=== PATIENT | female | born 1955 | race Caucasian/White ===

== ENCOUNTER 2023-10-28 08:56 | Inpatient (IN) | payer BC ==
[~2023-10-28] VITALS: Ht 167.6 cm; Wt 158.8 kg
[~2023-10-28 08:56] MED LIST: TPN #1 IV SCH
[2023-10-28 09:03] VITALS: O2SAT 96
[2023-10-28 09:30] LABS: BASOPHILS % (AUTO) 0.3 % (0.0-2.0); EOSINOPHILS # (AUTO) 0.1 K/uL (0.0-0.7); EOSINOPHILS % (AUTO) 0.7 % (0.0-6.0); HEMATOCRIT 28 % (33-45); LYMPHOCYTES # (AUTO) 1.4 K/uL (0.8-4.8); LYMPHOCYTES % (AUTO) 9.8 % (20.0-44.0); MEAN CORPUSCULAR HEMOGLOBIN 30 PG (26.0-33.0); MEAN CORPUSCULAR HGB CONC 32 g/dl (31.0-36.0); MEAN CORPUSCULAR VOLUME 91 fL (82-100); MONOCYTES # (AUTO) 1.5 K/uL (0.1-1.30); MONOCYTES % (AUTO) 10.5 % (2.0-12.0); NEUTROPHILS # (AUTO) 11.4 K/uL (1.8-8.9); NEUTROPHILS % (AUTO) 78.7 % (43.0-81.0); PLATELET COUNT (AUTO) 335 K/uL (150-450); RED BLOOD CELL COUNT(AUTO) 3.06 MIL/uL (4.0-5.2); RED CELL DISTRIBUTION WIDTH 16.9 % (11.5-15.0); WHITE BLOOD COUNT (AUTO) 14.4 K/uL (4.3-11.0)
[2023-10-28] MEDS ORDERED: OLAN10TA3 GT (09:36)
[2023-10-28] MEDS ORDERED: CLOP75TA15 GT (09:36)
[2023-10-28] MEDS ORDERED: ISOS10TA2 GT (09:36)
[2023-10-28] MEDS ORDERED: AMIO200T5 GT (09:36)
[2023-10-28] MEDS ORDERED: GLUC1KIT IM (09:36)
[2023-10-28] MEDS ORDERED: METO25TA6 GT (09:36)
[2023-10-28] MEDS ORDERED: GUAI400T61 GT (09:36)
[2023-10-28] MEDS ORDERED: NA P133E RC (09:36)
[2023-10-28] MEDS ORDERED: MAGN400O6 GT (09:36)
[2023-10-28] MEDS ORDERED: CHLO473M5 MM (09:36)
[2023-10-28] MEDS ORDERED: FURO-144 GT (09:36)
[2023-10-28] MEDS ORDERED: SENN-261 GT (09:36)
[2023-10-28] MEDS ORDERED: DOCU100T2 GT (09:36)
[2023-10-28] MEDS ORDERED: BISA10SU11 RC (09:36)
[2023-10-28] MEDS ORDERED: QUET50TA GT (09:36)
[2023-10-28] MEDS ORDERED: BETH5TAB2 GT (09:36)
[2023-10-28] MEDS ORDERED: TRAM50TA2 GT (09:36)
[2023-10-28] MEDS ORDERED: ALPR0.5T GT (09:36)
[2023-10-28] MEDS ORDERED: ACET-2605 GT (09:36)
[2023-10-28] MEDS ORDERED: MELA3TAB41 GT (09:36)
[2023-10-28] MEDS ORDERED: ONDA-97 GT (09:36)
[2023-10-28] MEDS ORDERED: ATOR20TA GT (09:36)
[2023-10-28] MEDS ORDERED: SERT50TA GT (09:36)
[2023-10-28] MEDS ORDERED: OLAN5TAB3 GT (09:36)
[2023-10-28] MEDS ORDERED: PHEN125O9 GT (09:36)
[2023-10-28] MEDS ORDERED: LORA2TAB95 GT (09:36)
[2023-10-28] MEDS ORDERED: IPRA4AER IH ×2 (09:36)
[2023-10-28] MEDS ORDERED: APIX5TAB GT (09:36)
[2023-10-28] MEDS ORDERED: VALP250S4 GT (09:36)
[2023-10-28] MEDS ORDERED: ACET-868 GT (09:36)
[2023-10-28] MEDS ORDERED: INSU100V7 SQ (09:36)
[2023-10-28] MEDS ORDERED: CALC0.253 GT (09:36)
[2023-10-28] MEDS ORDERED: POLY17PO4 GT (09:36)
[2023-10-28] MEDS ORDERED: *INS REG3 SQ (09:36)
[2023-10-28 09:41] LABS: CALCIUM, SERUM 12.6 mg/dL (8.5-10.1); CREATININE 1.4 mg/dL (0.6-1.3); POTASSIUM 4.3 mmol/L (3.5-5.1)
[2023-10-28 09:47] LABS: PARTIAL THROMBOPLASTIN TIME 25.9 SEC (24.3-34.3); PROTHROMBIN TIME 10.6 SECS (9.2-11.1)
[2023-10-28 09:48] LABS: ABG BASE EXCESS 9.7 mmol/L; ABG OXYGEN SATURATION 94.3 % (92.0-98.5); ABG PCO2 70.1 mmHg (35.0-45.0); ABG PH 7.345 (7.350-7.450); ABG PO2 75.3 mmHg (75.0-100.0); ABG TOTAL HEMOGLOBIN 10.4 G/dL (12.0-16.0); COHb 0.3 % (0.5-1.5); MetHb 0.4 % (0.0-1.5); O2Hb 93.6 % (94.0-97.0); SITE, ABG Right Radial; VENT MODE, BG CA 10L/98%
[2023-10-28] MEDS ORDERED: LORAZEPAM INJ 2 MG/ML VIAL ONE (09:54)
[2023-10-28] MEDS: LORAZEPAM INJ 2 MG/ML VIAL IV ONE (09:58)
[2023-10-28] MEDS: ENOXAPARIN SODIUM 40 MG/0.4 ML DISP.SYRIN SQ SCH (16:00)
[2023-10-28] MEDS ORDERED: IV NS 0.9% 1,000 ML IV PRN (16:00)
[2023-10-28] MEDS ORDERED: OLANZAPINE 10 MG TABLET GT PRN (16:00)
[2023-10-28] MEDS ORDERED: Z GUARD REMEDY 4 OZ OINT TP PRN (16:00)
[2023-10-28 16:07] VITALS: BP 127/80; TEMP 98.4; O2SAT 97
[2023-10-28] MEDS ORDERED: DEXTROSE 50%-WATER 50 ML DISP.SYRIN IV PRN (16:30)
[2023-10-28 16:31] LABS: BILIRUBIN,DIRECT 0.1 mg/dL (0.0-0.2); BILIRUBIN,TOTAL 0.2 mg/dL (0.2-1.0); PHENYTOIN (DILANTIN) 6.9 ug/ml (10.0-20.0); TOTAL PROTEIN, SERUM 7.1 g/dL (6.4-8.2)
[2023-10-28 16:54] LABS: IRON, SERUM 49 ug/dl (50-175); TOTAL IRON BINDING CAPACITY 249 ug/dl (250-450)
[2023-10-28 17:03] LABS: THYROID STIMULATING HORMONE 8.043 uIU/mL (0.358-3.74)
[2023-10-28 17:07] LABS: FERRITIN 73 ng/mL (8-388)
[2023-10-28] MEDS: VALPROIC ACID 250 MG/5 ML UDC GT SCH (17:53)
[2023-10-28] MEDS: PHENYTOIN SUSP UDC 100 MG/4 ML UDC GT SCH (17:53)
[2023-10-28] MEDS: QUETIAPINE FUMARATE 25 MG TABLET PO SCH (17:54)
[2023-10-28] MEDS: METOPROLOL TARTRATE 25 MG TABLET GT SCH (17:55)
[2023-10-28] MEDS: ISOSORBIDE DINITRATE (10MG) 10 MG TABLET GT SCH (17:55)
[2023-10-28] MEDS: OLANZAPINE 5 MG TABLET GT SCH (17:55)
[2023-10-28] MEDS: CHLORHEXIDINE GLUCONATE 15 ML UDC MM SCH (17:55)
[2023-10-28] MEDS: BLOOD SUGAR DIAGNOSTIC 1 EACH STRIP IN SCH (17:56)
[2023-10-28] MEDS: BETHANECHOL CHLORIDE (25 MG) 25 MG TABLET PO SCH (17:56)
[2023-10-28] MEDS ORDERED: BETHANECHOL CHLORIDE 50 MG TABLET PO SCH (18:00)
[2023-10-28] MEDS ORDERED: BETHANECHOL CHLORIDE 5 MG TABLET PO SCH (18:00)
[2023-10-28] MEDS: FUROSEMIDE 20 MG/2 ML VIAL IV ONE (18:37)
[2023-10-28] MEDS: IV LR 1000 ML 1,000 ML IV PRN (18:48)
[2023-10-28 20:00] VITALS: BP 109/68; TEMP 99.1; O2SAT 97
[2023-10-28] MEDS: ALBUTEROL FS 2.5 MG/3 ML VIAL.NEB NEB SCH (20:02)
[2023-10-28] MEDS: IPRATROPIUM NEB FS 0.5 MG/2.5 ML AMPUL.NEB NEB SCH (20:02)
[2023-10-28] MEDS: INSULIN GLARGINE, 100 UNIT/ML CARTRIDGE SQ SCH (22:00)
[2023-10-28] MEDS: ATORVASTATIN 10 MG TABLET GT SCH (22:09)
[2023-10-28] MEDS: CLOPIDOGREL BISULFATE 75 MG TABLET GT SCH (22:09)
[2023-10-28] MEDS: INSULIN REGULAR, HUMAN 100 UNIT/ML 3 ML VIAL SQ PRN (23:43)
[2023-10-29] VITALS (7 sets, daily range): BP systolic 91–100; BP diastolic 56–75; TEMP 98–99.3; O2SAT 96–100
[2023-10-29] MEDS: LORAZEPAM 1 MG TABLET GT PRN (05:40)
[2023-10-29 07:04] LABS: CREATININE 1.5 mg/dL (0.6-1.3); MAGNESIUM 2.3 mg/dL (1.8-2.4); PHOSPHORUS 2.1 mg/dL (2.5-4.9); POTASSIUM 4.2 mmol/L (3.5-5.1)
[2023-10-29 07:08] LABS: BASOPHILS # (AUTO) 0.1 K/uL (0.0-0.2); BASOPHILS % (AUTO) 0.3 % (0.0-2.0); EOSINOPHILS # (AUTO) 0.2 K/uL (0.0-0.7); EOSINOPHILS % (AUTO) 0.9 % (0.0-6.0); HEMATOCRIT 26 % (33-45); HEMOGLOBIN 8.3 g/dL (11.5-14.8); LYMPHOCYTES # (AUTO) 2.2 K/uL (0.8-4.8); LYMPHOCYTES % (AUTO) 11.6 % (20.0-44.0); MEAN CORPUSCULAR HEMOGLOBIN 30 PG (26.0-33.0); MEAN CORPUSCULAR HGB CONC 33 g/dl (31.0-36.0); MEAN CORPUSCULAR VOLUME 91 fL (82-100); MONOCYTES # (AUTO) 2.4 K/uL (0.1-1.30); MONOCYTES % (AUTO) 12.4 % (2.0-12.0); NEUTROPHILS # (AUTO) 14.4 K/uL (1.8-8.9); NEUTROPHILS % (AUTO) 74.8 % (43.0-81.0); PLATELET COUNT (AUTO) 322 K/uL (150-450); RED BLOOD CELL COUNT(AUTO) 2.81 MIL/uL (4.0-5.2); RED CELL DISTRIBUTION WIDTH 16.8 % (11.5-15.0); WHITE BLOOD COUNT (AUTO) 19.3 K/uL (4.3-11.0)
[2023-10-29] MEDS: FUROSEMIDE 40 MG TABLET GT SCH (09:07)
[2023-10-29] MEDS: SERTRALINE HCL 50 MG TABLET GT SCH (09:07)
[2023-10-29] MEDS: AMIODARONE HCL 200 MG TABLET GT SCH (09:08)
[2023-10-29 09:15] LABS: ANISOCYTOSIS 1+; BAND % (MANUAL) 6 % (0.0-5.0); EOSINOPHILS % (MANUAL) 1 % (0-4); HYPOCHROMASIA 1+; LYMPHOCYTES % (MANUAL) 14 % (16-48); METAMYELOCYTES % 1 % (0-0); MONOCYTES % (MANUAL) 10 % (0-11.0); NEUTROPHILS % (MANUAL) 68 (42-76); PLATELET ESTIMATE ADEQUATE
[2023-10-29] MEDS: NEUTRA PHOS 1 POWD.PACKET NG ONE (16:03)
[2023-10-30] VITALS (14 sets, daily range): BP systolic 96–115; BP diastolic 52–71; TEMP 97.7–98.4; O2SAT 92–100
[2023-10-30 06:46] LABS: BASOPHILS # (AUTO) 0.1 K/uL (0.0-0.2); BASOPHILS % (AUTO) 0.4 % (0.0-2.0); EOSINOPHILS # (AUTO) 0.1 K/uL (0.0-0.7); EOSINOPHILS % (AUTO) 0.9 % (0.0-6.0); HEMATOCRIT 24 % (33-45); HEMOGLOBIN 7.8 g/dL (11.5-14.8); LYMPHOCYTES # (AUTO) 1.8 K/uL (0.8-4.8); LYMPHOCYTES % (AUTO) 12.6 % (20.0-44.0); MEAN CORPUSCULAR HEMOGLOBIN 29 PG (26.0-33.0); MEAN CORPUSCULAR HGB CONC 32 g/dl (31.0-36.0); MEAN CORPUSCULAR VOLUME 90 fL (82-100); MONOCYTES # (AUTO) 1.8 K/uL (0.1-1.30); MONOCYTES % (AUTO) 12.1 % (2.0-12.0); NEUTROPHILS # (AUTO) 10.8 K/uL (1.8-8.9); PLATELET COUNT (AUTO) 274 K/uL (150-450); RED BLOOD CELL COUNT(AUTO) 2.66 MIL/uL (4.0-5.2); RED CELL DISTRIBUTION WIDTH 16.5 % (11.5-15.0); WHITE BLOOD COUNT (AUTO) 14.6 K/uL (4.3-11.0)
[2023-10-30 07:29] LABS: CALCIUM, SERUM 10.7 mg/dL (8.5-10.1); CREATININE 1.3 mg/dL (0.6-1.3); MAGNESIUM 1.9 mg/dL (1.8-2.4); PHOSPHORUS 2.3 mg/dL (2.5-4.9); POTASSIUM 3.6 mmol/L (3.5-5.1)
[2023-10-30] MEDS: APIXABAN 5 MG TABLET GT SCH (08:27)
[2023-10-30 12:50] LABS: ABG BASE EXCESS 11.9 mmol/L; ABG PCO2 49.4 mmHg (35.0-45.0); ABG PH 7.488 (7.350-7.450); ABG PO2 54.3 mmHg (75.0-100.0); ABG TOTAL HEMOGLOBIN 8.9 G/dL (12.0-16.0); AaDO2 174.1 mmHg; COHb 0.3 % (0.5-1.5); MetHb 0.2 % (0.0-1.5); O2Hb 88.6 % (94.0-97.0); SITE, ABG Right Radial; VENT MODE, BG cool aerosol40%
[2023-10-30] MEDS: LEVOTHYROXINE SODIUM 125 MCG TABLET GT SCH (12:55)
[2023-10-30] MEDS: GLUCERNA 1.2 1,000 ML BOTTLE NG PRN (13:00)
[2023-10-30] MEDS: NEUTRA PHOS 1 POWD.PACKET NG ONE (17:09)
[2023-10-30] MEDS: ALBUTEROL HALF STRENGTH 1.25 MG/3 ML VIAL.NEB NEB SCH (20:23)
[2023-10-30] MEDS: IPRATROPIUM NEB FS 0.5 MG/2.5 ML AMPUL.NEB NEB SCH (20:23)
[2023-10-31] VITALS (17 sets, daily range): BP systolic 97–136; BP diastolic 48–72; TEMP 97.6–98.5; O2SAT 92–100
[2023-10-31 06:35] LABS: BASOPHILS % (AUTO) 0.2 % (0.0-2.0); EOSINOPHILS # (AUTO) 0.3 K/uL (0.0-0.7); EOSINOPHILS % (AUTO) 2.8 % (0.0-6.0); HEMATOCRIT 25 % (33-45); HEMOGLOBIN 8.2 g/dL (11.5-14.8); LYMPHOCYTES # (AUTO) 1.5 K/uL (0.8-4.8); LYMPHOCYTES % (AUTO) 12.9 % (20.0-44.0); MEAN CORPUSCULAR HEMOGLOBIN 29 PG (26.0-33.0); MEAN CORPUSCULAR HGB CONC 32 g/dl (31.0-36.0); MEAN CORPUSCULAR VOLUME 91 fL (82-100); MONOCYTES # (AUTO) 1.4 K/uL (0.1-1.30); MONOCYTES % (AUTO) 12.1 % (2.0-12.0); NEUTROPHILS # (AUTO) 8.5 K/uL (1.8-8.9); PLATELET COUNT (AUTO) 286 K/uL (150-450); RED CELL DISTRIBUTION WIDTH 16.7 % (11.5-15.0); WHITE BLOOD COUNT (AUTO) 11.8 K/uL (4.3-11.0)
[2023-10-31 06:38] LABS: CALCIUM, SERUM 10.5 mg/dL (8.5-10.1); CREATININE 1.3 mg/dL (0.6-1.3); MAGNESIUM 1.9 mg/dL (1.8-2.4); PHOSPHORUS 3.6 mg/dL (2.5-4.9); POTASSIUM 3.7 mmol/L (3.5-5.1)
[2023-10-31 08:19] LABS: ABG BASE EXCESS 10.3 mmol/L; ABG PH 7.452 (7.350-7.450); ABG PO2 73.3 mmHg (75.0-100.0); ABG TOTAL HEMOGLOBIN 9.2 G/dL (12.0-16.0); AaDO2 152.1 mmHg; MetHb 0.3 % (0.0-1.5); O2Hb 93.7 % (94.0-97.0); SITE, ABG Right Radial; VENT MODE, BG 40% C/A
[2023-11-01] VITALS (17 sets, daily range): BP systolic 106–120; BP diastolic 54–90; TEMP 98.2–98.9; O2SAT 93–98
[2023-11-01 06:36] LABS: BASOPHILS % (AUTO) 0.2 % (0.0-2.0); EOSINOPHILS # (AUTO) 0.4 K/uL (0.0-0.7); EOSINOPHILS % (AUTO) 3.1 % (0.0-6.0); HEMATOCRIT 24 % (33-45); HEMOGLOBIN 7.6 g/dL (11.5-14.8); LYMPHOCYTES # (AUTO) 1.5 K/uL (0.8-4.8); LYMPHOCYTES % (AUTO) 12.4 % (20.0-44.0); MEAN CORPUSCULAR HEMOGLOBIN 29 PG (26.0-33.0); MEAN CORPUSCULAR HGB CONC 32 g/dl (31.0-36.0); MEAN CORPUSCULAR VOLUME 91 fL (82-100); MONOCYTES # (AUTO) 1.5 K/uL (0.1-1.30); NEUTROPHILS # (AUTO) 8.8 K/uL (1.8-8.9); NEUTROPHILS % (AUTO) 72.3 % (43.0-81.0); PLATELET COUNT (AUTO) 254 K/uL (150-450); RED BLOOD CELL COUNT(AUTO) 2.62 MIL/uL (4.0-5.2); RED CELL DISTRIBUTION WIDTH 16.6 % (11.5-15.0); WHITE BLOOD COUNT (AUTO) 12.2 K/uL (4.3-11.0)
[2023-11-01 06:55] LABS: CREATININE 1.1 mg/dL (0.6-1.3); MAGNESIUM 2.1 mg/dL (1.8-2.4); PHOSPHORUS 3.3 mg/dL (2.5-4.9); POTASSIUM 3.6 mmol/L (3.5-5.1)
[2023-11-01] MEDS ORDERED: LEVO125T GT (10:47)
[2023-11-02] VITALS (14 sets, daily range): BP systolic 91–121; BP diastolic 51–72; TEMP 97.6–99.2; O2SAT 95–98
[2023-11-03] VITALS (12 sets, daily range): BP systolic 101–128; BP diastolic 62–72; TEMP 98–98.8; O2SAT 94–98
[2023-11-03 11:15] LABS: BASOPHILS % (AUTO) 0.3 % (0.0-2.0); EOSINOPHILS # (AUTO) 0.5 K/uL (0.0-0.7); EOSINOPHILS % (AUTO) 3.8 % (0.0-6.0); HEMATOCRIT 24 % (33-45); HEMOGLOBIN 7.6 g/dL (11.5-14.8); LYMPHOCYTES # (AUTO) 1.7 K/uL (0.8-4.8); LYMPHOCYTES % (AUTO) 12.4 % (20.0-44.0); MEAN CORPUSCULAR HEMOGLOBIN 30 PG (26.0-33.0); MEAN CORPUSCULAR HGB CONC 32 g/dl (31.0-36.0); MEAN CORPUSCULAR VOLUME 93 fL (82-100); MONOCYTES # (AUTO) 1.6 K/uL (0.1-1.30); MONOCYTES % (AUTO) 11.9 % (2.0-12.0); NEUTROPHILS # (AUTO) 9.6 K/uL (1.8-8.9); NEUTROPHILS % (AUTO) 71.6 % (43.0-81.0); PLATELET COUNT (AUTO) 227 K/uL (150-450); RED BLOOD CELL COUNT(AUTO) 2.57 MIL/uL (4.0-5.2); WHITE BLOOD COUNT (AUTO) 13.4 K/uL (4.3-11.0)
[2023-11-04] VITALS (14 sets, daily range): BP systolic 98–153; BP diastolic 52–77; TEMP 97.9–98.8; O2SAT 92–98
[2023-11-04] MEDS: TRAMADOL HCL 50 MG TABLET GT PRN (04:27)
[2023-11-04 09:39] LABS: BASOPHILS # (AUTO) 0.1 K/uL (0.0-0.2); BASOPHILS % (AUTO) 0.5 % (0.0-2.0); EOSINOPHILS # (AUTO) 0.6 K/uL (0.0-0.7); EOSINOPHILS % (AUTO) 3.8 % (0.0-6.0); HEMATOCRIT 25 % (33-45); HEMOGLOBIN 7.9 g/dL (11.5-14.8); LYMPHOCYTES # (AUTO) 2.1 K/uL (0.8-4.8); LYMPHOCYTES % (AUTO) 12.8 % (20.0-44.0); MEAN CORPUSCULAR HEMOGLOBIN 30 PG (26.0-33.0); MEAN CORPUSCULAR HGB CONC 31 g/dl (31.0-36.0); MEAN CORPUSCULAR VOLUME 94 fL (82-100); MONOCYTES # (AUTO) 2.1 K/uL (0.1-1.30); MONOCYTES % (AUTO) 13.1 % (2.0-12.0); NEUTROPHILS # (AUTO) 11.3 K/uL (1.8-8.9); NEUTROPHILS % (AUTO) 69.8 % (43.0-81.0); PLATELET COUNT (AUTO) 259 K/uL (150-450); RED BLOOD CELL COUNT(AUTO) 2.67 MIL/uL (4.0-5.2); RED CELL DISTRIBUTION WIDTH 16.6 % (11.5-15.0); WHITE BLOOD COUNT (AUTO) 16.2 K/uL (4.3-11.0)
[2023-11-04 10:08] LABS: ALBUMIN 1.7 g/dL (3.4-5.0); BILIRUBIN,TOTAL 0.2 mg/dL (0.2-1.0); CALCIUM, SERUM 9.8 mg/dL (8.5-10.1); CREATININE 1.2 mg/dL (0.6-1.3); MAGNESIUM 2.5 mg/dL (1.8-2.4); PHOSPHORUS 4.9 mg/dL (2.5-4.9); POTASSIUM 5.2 mmol/L (3.5-5.1); TOTAL PROTEIN, SERUM 6.7 g/dL (6.4-8.2)
[2023-11-05] VITALS (16 sets, daily range): BP systolic 83–110; BP diastolic 50–66; TEMP 97.9–99.1; O2SAT 92–100
[2023-11-05 06:58] LABS: BASOPHILS # (AUTO) 0.1 K/uL (0.0-0.2); BASOPHILS % (AUTO) 0.6 % (0.0-2.0); EOSINOPHILS # (AUTO) 0.5 K/uL (0.0-0.7); EOSINOPHILS % (AUTO) 2.8 % (0.0-6.0); HEMATOCRIT 25 % (33-45); HEMOGLOBIN 7.7 g/dL (11.5-14.8); LYMPHOCYTES # (AUTO) 1.8 K/uL (0.8-4.8); LYMPHOCYTES % (AUTO) 10.8 % (20.0-44.0); MEAN CORPUSCULAR HEMOGLOBIN 29 PG (26.0-33.0); MEAN CORPUSCULAR HGB CONC 31 g/dl (31.0-36.0); MEAN CORPUSCULAR VOLUME 93 fL (82-100); MONOCYTES # (AUTO) 1.9 K/uL (0.1-1.30); MONOCYTES % (AUTO) 11.1 % (2.0-12.0); NEUTROPHILS # (AUTO) 12.4 K/uL (1.8-8.9); NEUTROPHILS % (AUTO) 74.7 % (43.0-81.0); PLATELET COUNT (AUTO) 230 K/uL (150-450); RED BLOOD CELL COUNT(AUTO) 2.68 MIL/uL (4.0-5.2); WHITE BLOOD COUNT (AUTO) 16.7 K/uL (4.3-11.0)
[2023-11-05 07:24] LABS: ALBUMIN 1.6 g/dL (3.4-5.0); BILIRUBIN,TOTAL 0.2 mg/dL (0.2-1.0); CALCIUM, SERUM 9.6 mg/dL (8.5-10.1); CREATININE 1.3 mg/dL (0.6-1.3); MAGNESIUM 2.7 mg/dL (1.8-2.4); PHOSPHORUS 4.7 mg/dL (2.5-4.9); POTASSIUM 5.2 mmol/L (3.5-5.1); TOTAL PROTEIN, SERUM 6.4 g/dL (6.4-8.2)
[2023-11-05] MEDS: IV NS 0.9% 500 ML IV ONE ×2 (20:46→23:35)
[2023-11-06] VITALS (17 sets, daily range): BP systolic 96–142; BP diastolic 50–92; TEMP 97.9–99; O2SAT 91–99
[2023-11-06 09:23] LABS: BASOPHILS # (AUTO) 0.1 K/uL (0.0-0.2); BASOPHILS % (AUTO) 0.3 % (0.0-2.0); EOSINOPHILS # (AUTO) 0.4 K/uL (0.0-0.7); EOSINOPHILS % (AUTO) 2.2 % (0.0-6.0); HEMATOCRIT 25 % (33-45); LYMPHOCYTES # (AUTO) 1.8 K/uL (0.8-4.8); LYMPHOCYTES % (AUTO) 10.2 % (20.0-44.0); MEAN CORPUSCULAR HEMOGLOBIN 30 PG (26.0-33.0); MEAN CORPUSCULAR HGB CONC 32 g/dl (31.0-36.0); MEAN CORPUSCULAR VOLUME 93 fL (82-100); MONOCYTES # (AUTO) 1.6 K/uL (0.1-1.30); MONOCYTES % (AUTO) 9.5 % (2.0-12.0); NEUTROPHILS # (AUTO) 13.4 K/uL (1.8-8.9); NEUTROPHILS % (AUTO) 77.8 % (43.0-81.0); PLATELET COUNT (AUTO) 245 K/uL (150-450); RED BLOOD CELL COUNT(AUTO) 2.67 MIL/uL (4.0-5.2); RED CELL DISTRIBUTION WIDTH 16.7 % (11.5-15.0); WHITE BLOOD COUNT (AUTO) 17.3 K/uL (4.3-11.0)
[2023-11-06 09:27] LABS: ALBUMIN 1.6 g/dL (3.4-5.0); BILIRUBIN,TOTAL 0.2 mg/dL (0.2-1.0); CALCIUM, SERUM 9.7 mg/dL (8.5-10.1); CREATININE 1.2 mg/dL (0.6-1.3); MAGNESIUM 2.6 mg/dL (1.8-2.4); PHOSPHORUS 4.2 mg/dL (2.5-4.9); POTASSIUM 4.9 mmol/L (3.5-5.1); TOTAL PROTEIN, SERUM 6.8 g/dL (6.4-8.2)
[2023-11-06 12:05] LABS: BAND % (MANUAL) 1 % (0.0-5.0); HYPOCHROMASIA 1+; LYMPHOCYTES % (MANUAL) 12 % (16-48); MONOCYTES % (MANUAL) 7 % (0-11.0); NEUTROPHILS % (MANUAL) 80 (42-76); PLATELET ESTIMATE ADEQUATE
[2023-11-06 12:06] LABS: ANISOCYTOSIS 1+
[2023-11-07] VITALS (16 sets, daily range): BP systolic 93–104; BP diastolic 57–65; TEMP 98.1–98.7; O2SAT 94–100
[2023-11-07 06:39] LABS: BASOPHILS # (AUTO) 0.1 K/uL (0.0-0.2); BASOPHILS % (AUTO) 0.5 % (0.0-2.0); EOSINOPHILS # (AUTO) 0.4 K/uL (0.0-0.7); EOSINOPHILS % (AUTO) 2.4 % (0.0-6.0); HEMATOCRIT 26 % (33-45); HEMOGLOBIN 8.2 g/dL (11.5-14.8); LYMPHOCYTES # (AUTO) 2.2 K/uL (0.8-4.8); MEAN CORPUSCULAR HEMOGLOBIN 30 PG (26.0-33.0); MEAN CORPUSCULAR HGB CONC 32 g/dl (31.0-36.0); MEAN CORPUSCULAR VOLUME 94 fL (82-100); MONOCYTES # (AUTO) 1.6 K/uL (0.1-1.30); MONOCYTES % (AUTO) 10.2 % (2.0-12.0); NEUTROPHILS # (AUTO) 11.2 K/uL (1.8-8.9); NEUTROPHILS % (AUTO) 72.9 % (43.0-81.0); PLATELET COUNT (AUTO) 253 K/uL (150-450); RED BLOOD CELL COUNT(AUTO) 2.75 MIL/uL (4.0-5.2); RED CELL DISTRIBUTION WIDTH 16.8 % (11.5-15.0); WHITE BLOOD COUNT (AUTO) 15.4 K/uL (4.3-11.0)
[2023-11-07 06:58] LABS: ALBUMIN 1.7 g/dL (3.4-5.0); BILIRUBIN,TOTAL 0.2 mg/dL (0.2-1.0); CALCIUM, SERUM 9.8 mg/dL (8.5-10.1); CREATININE 1.1 mg/dL (0.6-1.3); MAGNESIUM 2.5 mg/dL (1.8-2.4); PHOSPHORUS 4.1 mg/dL (2.5-4.9); POTASSIUM 5.3 mmol/L (3.5-5.1)
[2023-11-07] MEDS: ALPRAZOLAM 0.5 MG TABLET GT PRN (10:12)
[2023-11-08] VITALS (16 sets, daily range): BP systolic 88–130; BP diastolic 50–83; TEMP 97.5–99.3; O2SAT 95–99
[2023-11-08] MEDS: ACETAMINOPHEN 325 MG TABLET MC PRN (09:43)
[2023-11-08 10:46] LABS: BASOPHILS % (AUTO) 0.3 % (0.0-2.0); EOSINOPHILS # (AUTO) 0.3 K/uL (0.0-0.7); EOSINOPHILS % (AUTO) 1.9 % (0.0-6.0); HEMATOCRIT 26 % (33-45); HEMOGLOBIN 7.9 g/dL (11.5-14.8); LYMPHOCYTES # (AUTO) 1.7 K/uL (0.8-4.8); LYMPHOCYTES % (AUTO) 12.1 % (20.0-44.0); MEAN CORPUSCULAR HEMOGLOBIN 29 PG (26.0-33.0); MEAN CORPUSCULAR HGB CONC 31 g/dl (31.0-36.0); MEAN CORPUSCULAR VOLUME 94 fL (82-100); MONOCYTES # (AUTO) 1.5 K/uL (0.1-1.30); MONOCYTES % (AUTO) 10.9 % (2.0-12.0); NEUTROPHILS # (AUTO) 10.4 K/uL (1.8-8.9); NEUTROPHILS % (AUTO) 74.8 % (43.0-81.0); PLATELET COUNT (AUTO) 239 K/uL (150-450); RED BLOOD CELL COUNT(AUTO) 2.73 MIL/uL (4.0-5.2); RED CELL DISTRIBUTION WIDTH 17.4 % (11.5-15.0)
[2023-11-08 10:48] LABS: CALCIUM, SERUM 9.9 mg/dL (8.5-10.1); POTASSIUM 5.4 mmol/L (3.5-5.1)
[2023-11-08 10:54] LABS: ALBUMIN 1.6 g/dL (3.4-5.0); BILIRUBIN,TOTAL 0.2 mg/dL (0.2-1.0); TOTAL PROTEIN, SERUM 6.7 g/dL (6.4-8.2)
[2023-11-08] MEDS: SODIUM POLYSTYRENE SULF. PWD 15 GM UDC PEG ONE (13:09)
[2023-11-08] MEDS ORDERED: NEPRO 1,000 ML BOTTLE GT PRN (13:30)
[2023-11-08] MEDS: NEPRO 1,000 ML BOTTLE GT PRN (19:03)
[2023-11-09] VITALS (16 sets, daily range): BP systolic 101–150; BP diastolic 48–75; TEMP 96.1–99.2; O2SAT 91–99
[2023-11-09 07:05] LABS: BASOPHILS % (AUTO) 0.3 % (0.0-2.0); EOSINOPHILS # (AUTO) 0.3 K/uL (0.0-0.7); EOSINOPHILS % (AUTO) 1.9 % (0.0-6.0); HEMATOCRIT 26 % (33-45); LYMPHOCYTES # (AUTO) 1.7 K/uL (0.8-4.8); LYMPHOCYTES % (AUTO) 12.6 % (20.0-44.0); MEAN CORPUSCULAR HEMOGLOBIN 30 PG (26.0-33.0); MEAN CORPUSCULAR HGB CONC 31 g/dl (31.0-36.0); MEAN CORPUSCULAR VOLUME 95 fL (82-100); MONOCYTES # (AUTO) 1.3 K/uL (0.1-1.30); MONOCYTES % (AUTO) 9.8 % (2.0-12.0); NEUTROPHILS # (AUTO) 10.1 K/uL (1.8-8.9); NEUTROPHILS % (AUTO) 75.4 % (43.0-81.0); PLATELET COUNT (AUTO) 242 K/uL (150-450); RED BLOOD CELL COUNT(AUTO) 2.68 MIL/uL (4.0-5.2); RED CELL DISTRIBUTION WIDTH 17.9 % (11.5-15.0); WHITE BLOOD COUNT (AUTO) 13.5 K/uL (4.3-11.0)
[2023-11-09 07:15] LABS: CALCIUM, SERUM 9.8 mg/dL (8.5-10.1); CREATININE 1.2 mg/dL (0.6-1.3)
[2023-11-10] VITALS (17 sets, daily range): BP systolic 93–150; BP diastolic 61–86; TEMP 98.1–99.3; O2SAT 91–98
[2023-11-11] VITALS (17 sets, daily range): BP systolic 103–135; BP diastolic 51–75; TEMP 97.7–98.8; O2SAT 92–99
[2023-11-11 07:31] LABS: BASOPHILS # (AUTO) 0.1 K/uL (0.0-0.2); BASOPHILS % (AUTO) 0.4 % (0.0-2.0); EOSINOPHILS # (AUTO) 0.3 K/uL (0.0-0.7); EOSINOPHILS % (AUTO) 2.8 % (0.0-6.0); HEMATOCRIT 26 % (33-45); HEMOGLOBIN 8.2 g/dL (11.5-14.8); LYMPHOCYTES # (AUTO) 1.6 K/uL (0.8-4.8); LYMPHOCYTES % (AUTO) 12.6 % (20.0-44.0); MEAN CORPUSCULAR HEMOGLOBIN 30 PG (26.0-33.0); MEAN CORPUSCULAR HGB CONC 32 g/dl (31.0-36.0); MEAN CORPUSCULAR VOLUME 95 fL (82-100); MONOCYTES # (AUTO) 1.1 K/uL (0.1-1.30); NEUTROPHILS # (AUTO) 9.4 K/uL (1.8-8.9); NEUTROPHILS % (AUTO) 75.2 % (43.0-81.0); PLATELET COUNT (AUTO) 212 K/uL (150-450); RED BLOOD CELL COUNT(AUTO) 2.76 MIL/uL (4.0-5.2); RED CELL DISTRIBUTION WIDTH 17.5 % (11.5-15.0); WHITE BLOOD COUNT (AUTO) 12.5 K/uL (4.3-11.0)
[2023-11-11 07:45] LABS: CALCIUM, SERUM 10.6 mg/dL (8.5-10.1); CREATININE 1.1 mg/dL (0.6-1.3); POTASSIUM 4.5 mmol/L (3.5-5.1)
[2023-11-11 14:53] LABS: ABG BASE EXCESS 14.9 mmol/L; ABG OXYGEN SATURATION 89.9 % (92.0-98.5); ABG PCO2 63.9 mmHg (35.0-45.0); ABG PH 7.428 (7.350-7.450); ABG PO2 59.4 mmHg (75.0-100.0); ABG TOTAL HEMOGLOBIN 9.1 G/dL (12.0-16.0); AaDO2 152.3 mmHg; COHb 0.3 % (0.5-1.5); MetHb 0.4 % (0.0-1.5); O2Hb 89.3 % (94.0-97.0); SITE, ABG Right Radial; VENT MODE, BG CA 40%
[2023-11-12] VITALS (14 sets, daily range): BP systolic 104–126; BP diastolic 50–70; TEMP 97.9–99.1; O2SAT 95–99
[2023-11-12 06:18] LABS: ABG BASE EXCESS 13.1 mmol/L; ABG OXYGEN SATURATION 93.4 % (92.0-98.5); ABG PCO2 61.1 mmHg (35.0-45.0); ABG PH 7.426 (7.350-7.450); ABG PO2 70.1 mmHg (75.0-100.0); ABG TOTAL HEMOGLOBIN 8.9 G/dL (12.0-16.0); AaDO2 144.8 mmHg; COHb 0.5 % (0.5-1.5); MetHb 0.1 % (0.0-1.5); O2Hb 92.8 % (94.0-97.0); SITE, ABG Right Radial; VENT MODE, BG COOL AEROSOL 40%
[2023-11-12 07:02] LABS: BASOPHILS % (AUTO) 0.3 % (0.0-2.0); EOSINOPHILS # (AUTO) 0.3 K/uL (0.0-0.7); EOSINOPHILS % (AUTO) 2.7 % (0.0-6.0); HEMATOCRIT 26 % (33-45); HEMOGLOBIN 8.3 g/dL (11.5-14.8); LYMPHOCYTES # (AUTO) 1.4 K/uL (0.8-4.8); LYMPHOCYTES % (AUTO) 13.2 % (20.0-44.0); MEAN CORPUSCULAR HEMOGLOBIN 30 PG (26.0-33.0); MEAN CORPUSCULAR HGB CONC 32 g/dl (31.0-36.0); MEAN CORPUSCULAR VOLUME 94 fL (82-100); MONOCYTES # (AUTO) 0.9 K/uL (0.1-1.30); MONOCYTES % (AUTO) 8.7 % (2.0-12.0); NEUTROPHILS # (AUTO) 7.8 K/uL (1.8-8.9); NEUTROPHILS % (AUTO) 75.1 % (43.0-81.0); PLATELET COUNT (AUTO) 213 K/uL (150-450); RED BLOOD CELL COUNT(AUTO) 2.75 MIL/uL (4.0-5.2); RED CELL DISTRIBUTION WIDTH 17.3 % (11.5-15.0); WHITE BLOOD COUNT (AUTO) 10.3 K/uL (4.3-11.0)
[2023-11-12 07:12] LABS: CALCIUM, SERUM 10.4 mg/dL (8.5-10.1); CREATININE 1.2 mg/dL (0.6-1.3)
[2023-11-12] MEDS: CEFEPIME 2 GM in IV D5W 100 ML IV SCH (13:09)
[2023-11-12] MEDS: NEPRO 1,000 ML BOTTLE GT PRN (21:59)
[2023-11-13] VITALS (13 sets, daily range): BP systolic 113–132; BP diastolic 60–69; TEMP 97.9–99.3; O2SAT 94–99
[2023-11-14] VITALS (17 sets, daily range): BP systolic 108–143; BP diastolic 50–71; TEMP 98–99; O2SAT 94–99
[2023-11-15] VITALS (16 sets, daily range): BP systolic 115–138; BP diastolic 58–71; TEMP 97.5–98.8; O2SAT 93–100
[2023-11-15 06:21] LABS: BASOPHILS % (AUTO) 0.3 % (0.0-2.0); EOSINOPHILS # (AUTO) 0.3 K/uL (0.0-0.7); EOSINOPHILS % (AUTO) 2.5 % (0.0-6.0); HEMATOCRIT 24 % (33-45); HEMOGLOBIN 7.7 g/dL (11.5-14.8); LYMPHOCYTES # (AUTO) 1.4 K/uL (0.8-4.8); LYMPHOCYTES % (AUTO) 13.9 % (20.0-44.0); MEAN CORPUSCULAR HEMOGLOBIN 30 PG (26.0-33.0); MEAN CORPUSCULAR HGB CONC 33 g/dl (31.0-36.0); MEAN CORPUSCULAR VOLUME 93 fL (82-100); MONOCYTES % (AUTO) 9.4 % (2.0-12.0); NEUTROPHILS # (AUTO) 7.6 K/uL (1.8-8.9); NEUTROPHILS % (AUTO) 73.9 % (43.0-81.0); PLATELET COUNT (AUTO) 200 K/uL (150-450); RED BLOOD CELL COUNT(AUTO) 2.55 MIL/uL (4.0-5.2); RED CELL DISTRIBUTION WIDTH 17.4 % (11.5-15.0); WHITE BLOOD COUNT (AUTO) 10.2 K/uL (4.3-11.0)
[2023-11-15 06:55] LABS: CREATININE 1.4 mg/dL (0.6-1.3); POTASSIUM 4.2 mmol/L (3.5-5.1)
[2023-11-15 07:41] LABS: CALCIUM, SERUM 13.1 mg/dL (8.5-10.1)
[2023-11-15 09:43] LABS: ALBUMIN 1.6 g/dL (3.4-5.0); BILIRUBIN,DIRECT 0.1 mg/dL (0.0-0.2); BILIRUBIN,TOTAL 0.2 mg/dL (0.2-1.0); MAGNESIUM 1.7 mg/dL (1.8-2.4); PHOSPHORUS 3.7 mg/dL (2.5-4.9); TOTAL PROTEIN, SERUM 6.8 g/dL (6.4-8.2)
[2023-11-15] MEDS: IV NS 0.9% 1,000 ML IV PRN (14:40)
[2023-11-16] VITALS (16 sets, daily range): BP systolic 110–135; BP diastolic 53–73; TEMP 97.6–98.4; O2SAT 94–99
[2023-11-16 06:39] LABS: BASOPHILS # (AUTO) 0.1 K/uL (0.0-0.2); BASOPHILS % (AUTO) 0.6 % (0.0-2.0); EOSINOPHILS # (AUTO) 0.4 K/uL (0.0-0.7); EOSINOPHILS % (AUTO) 4.2 % (0.0-6.0); HEMATOCRIT 23 % (33-45); HEMOGLOBIN 7.6 g/dL (11.5-14.8); LYMPHOCYTES # (AUTO) 1.2 K/uL (0.8-4.8); LYMPHOCYTES % (AUTO) 12.6 % (20.0-44.0); MEAN CORPUSCULAR HEMOGLOBIN 30 PG (26.0-33.0); MEAN CORPUSCULAR HGB CONC 33 g/dl (31.0-36.0); MEAN CORPUSCULAR VOLUME 93 fL (82-100); MONOCYTES # (AUTO) 0.9 K/uL (0.1-1.30); MONOCYTES % (AUTO) 9.3 % (2.0-12.0); NEUTROPHILS # (AUTO) 7.1 K/uL (1.8-8.9); NEUTROPHILS % (AUTO) 73.3 % (43.0-81.0); PLATELET COUNT (AUTO) 198 K/uL (150-450); RED BLOOD CELL COUNT(AUTO) 2.51 MIL/uL (4.0-5.2); WHITE BLOOD COUNT (AUTO) 9.7 K/uL (4.3-11.0)
[2023-11-16 07:30] LABS: CREATININE 1.5 mg/dL (0.6-1.3); POTASSIUM 3.9 mmol/L (3.5-5.1)
[2023-11-16 07:57] LABS: CALCIUM, SERUM 13.4 mg/dL (8.5-10.1)
[2023-11-17] VITALS (17 sets, daily range): BP systolic 103–119; BP diastolic 50–69; TEMP 97.5–98.2; O2SAT 95–100
[2023-11-17] MEDS: PAMIDRONATE 90 MG in IV NS 0.9% 500 ML IV ONE (07:42)
[2023-11-18] VITALS (21 sets, daily range): BP systolic 87–116; BP diastolic 53–102; TEMP 97.8–100; O2SAT 94–99
[2023-11-18 07:27] LABS: BASOPHILS # (AUTO) 0.1 K/uL (0.0-0.2); BASOPHILS % (AUTO) 0.4 % (0.0-2.0); EOSINOPHILS % (AUTO) 0.1 % (0.0-6.0); HEMATOCRIT 21 % (33-45); LYMPHOCYTES # (AUTO) 0.2 K/uL (0.8-4.8); LYMPHOCYTES % (AUTO) 1.3 % (20.0-44.0); MEAN CORPUSCULAR HEMOGLOBIN 30 PG (26.0-33.0); MEAN CORPUSCULAR HGB CONC 32 g/dl (31.0-36.0); MEAN CORPUSCULAR VOLUME 93 fL (82-100); MONOCYTES # (AUTO) 0.7 K/uL (0.1-1.30); MONOCYTES % (AUTO) 4.7 % (2.0-12.0); NEUTROPHILS # (AUTO) 13.1 K/uL (1.8-8.9); NEUTROPHILS % (AUTO) 93.5 % (43.0-81.0); PLATELET COUNT (AUTO) 211 K/uL (150-450); RED BLOOD CELL COUNT(AUTO) 2.22 MIL/uL (4.0-5.2); RED CELL DISTRIBUTION WIDTH 17.3 % (11.5-15.0)
[2023-11-18 07:29] LABS: HEMOGLOBIN 6.6 g/dL (11.5-14.8)
[2023-11-18 07:47] LABS: ALBUMIN 1.5 g/dL (3.4-5.0); BILIRUBIN,TOTAL 0.2 mg/dL (0.2-1.0); CALCIUM, SERUM 12.9 mg/dL (8.5-10.1); CREATININE 1.4 mg/dL (0.6-1.3); MAGNESIUM 1.5 mg/dL (1.8-2.4); PHOSPHORUS 2.4 mg/dL (2.5-4.9); POTASSIUM 3.3 mmol/L (3.5-5.1); TOTAL PROTEIN, SERUM 6.6 g/dL (6.4-8.2)
[2023-11-18 10:14] LABS: ANISOCYTOSIS 1+; BAND % (MANUAL) 7 % (0.0-5.0); BASOPHILS % (MANUAL) 0 % (0.0-2.0); EOSINOPHILS % (MANUAL) 0 % (0-4); HYPOCHROMASIA 1+; LYMPHOCYTES % (MANUAL) 3 % (16-48); MONOCYTES % (MANUAL) 6 % (0-11.0); NEUTROPHILS % (MANUAL) 84 (42-76); PLATELET ESTIMATE ADEQUATE; STOMATOCYTES 1+
[2023-11-18] MEDS: MAGNESIUM OXIDE 400 MG TABLET NG ONE (10:35)
[2023-11-18] MEDS: POTASSIUM CHLORIDE 20 MEQ POWDER PACKET NG SCH (10:37)
[2023-11-18] MEDS: NEUTRA PHOS 1 POWD.PACKET NG ONE (17:35)
[2023-11-18] MEDS: SENNOSIDES 8.6 MG TABLET PO SCH (22:09)
[2023-11-18] MEDS: DOCUSATE SODIUM LIQ 100 MG/10 ML UDC PEG SCH (22:09)
[2023-11-19] VITALS (17 sets, daily range): BP systolic 87–113; BP diastolic 51–68; TEMP 97.7–98.6; O2SAT 91–99
[2023-11-19 06:33] LABS: BASOPHILS % (AUTO) 0.5 % (0.0-2.0); EOSINOPHILS # (AUTO) 0.2 K/uL (0.0-0.7); EOSINOPHILS % (AUTO) 1.9 % (0.0-6.0); HEMATOCRIT 22 % (33-45); HEMOGLOBIN 7.1 g/dL (11.5-14.8); LYMPHOCYTES # (AUTO) 0.8 K/uL (0.8-4.8); LYMPHOCYTES % (AUTO) 8.5 % (20.0-44.0); MEAN CORPUSCULAR HEMOGLOBIN 30 PG (26.0-33.0); MEAN CORPUSCULAR HGB CONC 32 g/dl (31.0-36.0); MEAN CORPUSCULAR VOLUME 94 fL (82-100); MONOCYTES # (AUTO) 0.9 K/uL (0.1-1.30); MONOCYTES % (AUTO) 9.9 % (2.0-12.0); NEUTROPHILS # (AUTO) 7.3 K/uL (1.8-8.9); NEUTROPHILS % (AUTO) 79.2 % (43.0-81.0); PLATELET COUNT (AUTO) 169 K/uL (150-450); RED BLOOD CELL COUNT(AUTO) 2.38 MIL/uL (4.0-5.2); WHITE BLOOD COUNT (AUTO) 9.2 K/uL (4.3-11.0)
[2023-11-19 07:07] LABS: BILIRUBIN,TOTAL 0.2 mg/dL (0.2-1.0); CREATININE 1.5 mg/dL (0.6-1.3); MAGNESIUM 1.8 mg/dL (1.8-2.4); PHOSPHORUS 3.8 mg/dL (2.5-4.9); POTASSIUM 3.5 mmol/L (3.5-5.1); TOTAL PROTEIN, SERUM 6.1 g/dL (6.4-8.2)
[2023-11-19 07:18] LABS: CALCIUM, SERUM 12.1 mg/dL (8.5-10.1)
[2023-11-19 07:33] LABS: ALBUMIN 1.3 g/dL (3.4-5.0)
[2023-11-19] MEDS: IV NS 0.9% 500 ML IV ONE (16:55)
[2023-11-20] VITALS (15 sets, daily range): BP systolic 104–135; BP diastolic 62–85; TEMP 97.7–98.2; O2SAT 94–100
[2023-11-20 07:52] LABS: BASOPHILS # (AUTO) 0.1 K/uL (0.0-0.2); EOSINOPHILS # (AUTO) 0.3 K/uL (0.0-0.7); EOSINOPHILS % (AUTO) 3.5 % (0.0-6.0); HEMATOCRIT 24 % (33-45); HEMOGLOBIN 7.6 g/dL (11.5-14.8); LYMPHOCYTES # (AUTO) 1.1 K/uL (0.8-4.8); LYMPHOCYTES % (AUTO) 12.2 % (20.0-44.0); MEAN CORPUSCULAR HEMOGLOBIN 31 PG (26.0-33.0); MEAN CORPUSCULAR HGB CONC 33 g/dl (31.0-36.0); MEAN CORPUSCULAR VOLUME 94 fL (82-100); MONOCYTES # (AUTO) 1.1 K/uL (0.1-1.30); MONOCYTES % (AUTO) 12.1 % (2.0-12.0); NEUTROPHILS # (AUTO) 6.5 K/uL (1.8-8.9); NEUTROPHILS % (AUTO) 71.2 % (43.0-81.0); PLATELET COUNT (AUTO) 190 K/uL (150-450); RED CELL DISTRIBUTION WIDTH 17.5 % (11.5-15.0); WHITE BLOOD COUNT (AUTO) 9.1 K/uL (4.3-11.0)
[2023-11-20 08:10] LABS: CALCIUM, SERUM 11.1 mg/dL (8.5-10.1); CREATININE 1.6 mg/dL (0.6-1.3); MAGNESIUM 1.7 mg/dL (1.8-2.4); PHOSPHORUS 3.3 mg/dL (2.5-4.9); POTASSIUM 3.9 mmol/L (3.5-5.1)
[2023-11-20] MEDS: Magnesium 1GM/D5W 100ML PREMIX 100 ML IV SCH (09:46)
[2023-11-20] MEDS: MIDODRINE HCL (5MG) 5 MG TABLET PO SCH (12:58)
[2023-11-21] VITALS (16 sets, daily range): BP systolic 94–139; BP diastolic 31–71; TEMP 93.5–98.4; O2SAT 94–100
[2023-11-21 07:18] LABS: BASOPHILS % (AUTO) 0.6 % (0.0-2.0); EOSINOPHILS # (AUTO) 0.3 K/uL (0.0-0.7); HEMATOCRIT 22 % (33-45); HEMOGLOBIN 7.2 g/dL (11.5-14.8); LYMPHOCYTES # (AUTO) 1.1 K/uL (0.8-4.8); LYMPHOCYTES % (AUTO) 12.9 % (20.0-44.0); MEAN CORPUSCULAR HEMOGLOBIN 30 PG (26.0-33.0); MEAN CORPUSCULAR HGB CONC 32 g/dl (31.0-36.0); MEAN CORPUSCULAR VOLUME 93 fL (82-100); MONOCYTES # (AUTO) 0.8 K/uL (0.1-1.30); MONOCYTES % (AUTO) 9.9 % (2.0-12.0); NEUTROPHILS % (AUTO) 72.6 % (43.0-81.0); PLATELET COUNT (AUTO) 195 K/uL (150-450); RED BLOOD CELL COUNT(AUTO) 2.41 MIL/uL (4.0-5.2); RED CELL DISTRIBUTION WIDTH 16.9 % (11.5-15.0); WHITE BLOOD COUNT (AUTO) 8.2 K/uL (4.3-11.0)
[2023-11-21 08:00] LABS: CREATININE 1.5 mg/dL (0.6-1.3); MAGNESIUM 1.7 mg/dL (1.8-2.4); PHOSPHORUS 2.6 mg/dL (2.5-4.9); POTASSIUM 3.4 mmol/L (3.5-5.1)
[2023-11-21] MEDS: MAGNESIUM OXIDE 400 MG TABLET PO ONE (10:17)
[2023-11-21] MEDS: POTASSIUM CL. PREMIX PERIPHER. 50 ML IV SCH (10:18)
[2023-11-22] VITALS (16 sets, daily range): BP systolic 116–139; BP diastolic 52–84; TEMP 98–98.5; O2SAT 95–100
[2023-11-22] MEDS: IV NS 0.9% 1,000 ML IV PRN (00:34)
[2023-11-22 06:19] LABS: BASOPHILS % (AUTO) 0.5 % (0.0-2.0); EOSINOPHILS # (AUTO) 0.3 K/uL (0.0-0.7); EOSINOPHILS % (AUTO) 4.1 % (0.0-6.0); HEMATOCRIT 22 % (33-45); HEMOGLOBIN 7.1 g/dL (11.5-14.8); LYMPHOCYTES # (AUTO) 1.3 K/uL (0.8-4.8); LYMPHOCYTES % (AUTO) 17.5 % (20.0-44.0); MEAN CORPUSCULAR HEMOGLOBIN 30 PG (26.0-33.0); MEAN CORPUSCULAR HGB CONC 33 g/dl (31.0-36.0); MEAN CORPUSCULAR VOLUME 93 fL (82-100); MONOCYTES # (AUTO) 0.8 K/uL (0.1-1.30); MONOCYTES % (AUTO) 11.1 % (2.0-12.0); NEUTROPHILS # (AUTO) 4.8 K/uL (1.8-8.9); NEUTROPHILS % (AUTO) 66.8 % (43.0-81.0); PLATELET COUNT (AUTO) 232 K/uL (150-450); RED BLOOD CELL COUNT(AUTO) 2.34 MIL/uL (4.0-5.2); RED CELL DISTRIBUTION WIDTH 16.7 % (11.5-15.0); WHITE BLOOD COUNT (AUTO) 7.2 K/uL (4.3-11.0)
[2023-11-22 06:51] LABS: CALCIUM, SERUM 11.3 mg/dL (8.5-10.1); CREATININE 1.4 mg/dL (0.6-1.3); PHOSPHORUS 2.8 mg/dL (2.5-4.9); POTASSIUM 3.9 mmol/L (3.5-5.1)
[2023-11-22] MEDS: PEG 3350/NA SULF,BICARB,CL/KCL 4,000 ML BOTTLE PO ONE (07:40)
[2023-11-22] MEDS: IV D5W 1,000 ML IV ONE (16:29)
[2023-11-22] MEDS: METOCLOPRAMIDE HCL 10 MG/2 ML VIAL IV ONE (17:36)
[2023-11-23] VITALS (15 sets, daily range): BP systolic 90–121; BP diastolic 42–82; TEMP 97.5–98.9; O2SAT 94–100
[2023-11-23 07:29] LABS: BASOPHILS # (AUTO) 0.1 K/uL (0.0-0.2); BASOPHILS % (AUTO) 0.8 % (0.0-2.0); EOSINOPHILS # (AUTO) 0.3 K/uL (0.0-0.7); EOSINOPHILS % (AUTO) 3.1 % (0.0-6.0); HEMATOCRIT 22 % (33-45); HEMOGLOBIN 7.3 g/dL (11.5-14.8); LYMPHOCYTES # (AUTO) 1.6 K/uL (0.8-4.8); MEAN CORPUSCULAR HEMOGLOBIN 30 PG (26.0-33.0); MEAN CORPUSCULAR HGB CONC 33 g/dl (31.0-36.0); MEAN CORPUSCULAR VOLUME 92 fL (82-100); MONOCYTES # (AUTO) 0.8 K/uL (0.1-1.30); MONOCYTES % (AUTO) 8.6 % (2.0-12.0); NEUTROPHILS # (AUTO) 6.1 K/uL (1.8-8.9); NEUTROPHILS % (AUTO) 69.5 % (43.0-81.0); PLATELET COUNT (AUTO) 185 K/uL (150-450); RED BLOOD CELL COUNT(AUTO) 2.41 MIL/uL (4.0-5.2); WHITE BLOOD COUNT (AUTO) 8.7 K/uL (4.3-11.0)
[2023-11-23 08:25] LABS: CALCIUM, SERUM 10.1 mg/dL (8.5-10.1); CREATININE 1.5 mg/dL (0.6-1.3); MAGNESIUM 1.6 mg/dL (1.8-2.4); PHOSPHORUS 2.2 mg/dL (2.5-4.9); POTASSIUM 3.3 mmol/L (3.5-5.1)
[2023-11-23] MEDS: POTASSIUM CL. PREMIX PERIPHER. 50 ML IV SCH ×2 (09:30→13:44)
[2023-11-23] MEDS ORDERED: ANESTHESIA TRAY IN PYXIS 1 EA TRAY MC ONE ×2 (10:23→12:17)
[2023-11-23] MEDS: QUETIAPINE FUMARATE 25 MG TABLET GT SCH (13:01)
[2023-11-23] MEDS: MIDODRINE HCL (5MG) 5 MG TABLET GT SCH (13:01)
[2023-11-23] MEDS: Magnesium 1GM/D5W 100ML PREMIX 100 ML IV SCH ×2 (13:29→13:38)
[2023-11-23] MEDS: NEUTRA PHOS 1 POWD.PACKET GT ONE (15:23)
[2023-11-23] MEDS: SENNOSIDES 8.6 MG TABLET GT SCH (22:00)
[2023-11-24] VITALS (21 sets, daily range): BP systolic 80–144; BP diastolic 23–88; TEMP 97.5–98.9; O2SAT 98–100
[2023-11-24 07:46] LABS: CALCIUM, SERUM 9.9 mg/dL (8.5-10.1); CREATININE 1.6 mg/dL (0.6-1.3); PHOSPHORUS 3.4 mg/dL (2.5-4.9); POTASSIUM 3.4 mmol/L (3.5-5.1)
[2023-11-24 08:05] LABS: BASOPHILS % (AUTO) 0.3 % (0.0-2.0); EOSINOPHILS # (AUTO) 0.1 K/uL (0.0-0.7); LYMPHOCYTES # (AUTO) 1.6 K/uL (0.8-4.8); MEAN CORPUSCULAR HEMOGLOBIN 29 PG (26.0-33.0); MEAN CORPUSCULAR HGB CONC 31 g/dl (31.0-36.0); MEAN CORPUSCULAR VOLUME 93 fL (82-100); MONOCYTES # (AUTO) 1.2 K/uL (0.1-1.30); MONOCYTES % (AUTO) 8.5 % (2.0-12.0); NEUTROPHILS # (AUTO) 10.6 K/uL (1.8-8.9); NEUTROPHILS % (AUTO) 78.2 % (43.0-81.0); PLATELET COUNT (AUTO) 180 K/uL (150-450); RED BLOOD CELL COUNT(AUTO) 2.15 MIL/uL (4.0-5.2); RED CELL DISTRIBUTION WIDTH 16.7 % (11.5-15.0); WHITE BLOOD COUNT (AUTO) 13.6 K/uL (4.3-11.0)
[2023-11-24 08:11] LABS: HEMOGLOBIN 6.2 g/dL (11.5-14.8)
[2023-11-24 08:12] LABS: HEMATOCRIT 20 % (33-45)
[2023-11-24] MEDS: PROSOURCE / PROSTAT (PYXIS) 30 ML UDC GT SCH (08:21)
[2023-11-24 08:34] LABS: EOSINOPHILS % (MANUAL) 1 % (0-4); LYMPHOCYTES % (MANUAL) 11 % (16-48); MONOCYTES % (MANUAL) 7 % (0-11.0); NEUTROPHILS % (MANUAL) 81 (42-76); PLATELET ESTIMATE ADEQUATE
[2023-11-24 08:35] LABS: ANISOCYTOSIS 1+
[2023-11-24] MEDS ORDERED: POTASSIUM CL. PREMIX PERIPHER. 50 ML IV SCH (10:00)
[2023-11-24] MEDS: POTASSIUM CL. PREMIX PERIPHER. 50 ML IV SCH (10:43)
[2023-11-24 12:24] LABS: OCCULT BLOOD STOOL POSITIVE (NEGATIVE)
[2023-11-24] MEDS: SOD FERRIC GLUC 125 MG in IV NS 0.9% 100 ML IV SCH (16:18)
[2023-11-24 20:27] LABS: HEMOGLOBIN 6.9 g/dL (11.5-14.8)
[2023-11-25] VITALS (23 sets, daily range): BP systolic 94–144; BP diastolic 48–73; TEMP 97.4–98.6; O2SAT 98–100
[2023-11-25 10:45] LABS: BASOPHILS # (AUTO) 0.1 K/uL (0.0-0.2); BASOPHILS % (AUTO) 0.5 % (0.0-2.0); EOSINOPHILS # (AUTO) 0.1 K/uL (0.0-0.7); EOSINOPHILS % (AUTO) 0.9 % (0.0-6.0); HEMATOCRIT 25 % (33-45); HEMOGLOBIN 8.4 g/dL (11.5-14.8); LYMPHOCYTES # (AUTO) 1.9 K/uL (0.8-4.8); LYMPHOCYTES % (AUTO) 15.7 % (20.0-44.0); MEAN CORPUSCULAR HEMOGLOBIN 30 PG (26.0-33.0); MEAN CORPUSCULAR HGB CONC 33 g/dl (31.0-36.0); MEAN CORPUSCULAR VOLUME 91 fL (82-100); MONOCYTES # (AUTO) 1.1 K/uL (0.1-1.30); MONOCYTES % (AUTO) 8.7 % (2.0-12.0); NEUTROPHILS # (AUTO) 9.2 K/uL (1.8-8.9); NEUTROPHILS % (AUTO) 74.2 % (43.0-81.0); PLATELET COUNT (AUTO) 181 K/uL (150-450); RED BLOOD CELL COUNT(AUTO) 2.77 MIL/uL (4.0-5.2); RED CELL DISTRIBUTION WIDTH 15.5 % (11.5-15.0); WHITE BLOOD COUNT (AUTO) 12.4 K/uL (4.3-11.0)
[2023-11-25 11:12] LABS: BILIRUBIN,TOTAL 0.2 mg/dL (0.2-1.0); CALCIUM, SERUM 10.7 mg/dL (8.5-10.1); CREATININE 2.1 mg/dL (0.6-1.3); PHOSPHORUS 3.7 mg/dL (2.5-4.9); POTASSIUM 3.5 mmol/L (3.5-5.1); TOTAL PROTEIN, SERUM 6.1 g/dL (6.4-8.2)
[2023-11-25 11:58] LABS: ALBUMIN 1.4 g/dL (3.4-5.0)
[2023-11-25] MEDS: MIDODRINE HCL (5MG) 5 MG TABLET GT SCH (13:00)
[2023-11-25] MEDS: ALBUMIN 25% 25 GM in PREMIX 1 EA IV SCH (13:52)
[2023-11-25 15:51] LABS: ANISOCYTOSIS 1+; BAND % (MANUAL) 1 % (0.0-5.0); LYMPHOCYTES % (MANUAL) 18 % (16-48); METAMYELOCYTES % 2 % (0-0); MONOCYTES % (MANUAL) 5 % (0-11.0); NEUTROPHILS % (MANUAL) 74 (42-76); PLATELET ESTIMATE ADEQUATE
[2023-11-26] VITALS (15 sets, daily range): BP systolic 100–135; BP diastolic 53–85; TEMP 97.5–99.3; O2SAT 92–100
[2023-11-26 06:56] LABS: BASOPHILS % (AUTO) 0.4 % (0.0-2.0); EOSINOPHILS # (AUTO) 0.1 K/uL (0.0-0.7); EOSINOPHILS % (AUTO) 1.2 % (0.0-6.0); HEMATOCRIT 22 % (33-45); HEMOGLOBIN 7.3 g/dL (11.5-14.8); LYMPHOCYTES # (AUTO) 1.3 K/uL (0.8-4.8); LYMPHOCYTES % (AUTO) 10.9 % (20.0-44.0); MEAN CORPUSCULAR HEMOGLOBIN 30 PG (26.0-33.0); MEAN CORPUSCULAR HGB CONC 33 g/dl (31.0-36.0); MEAN CORPUSCULAR VOLUME 91 fL (82-100); MONOCYTES % (AUTO) 8.3 % (2.0-12.0); NEUTROPHILS # (AUTO) 9.2 K/uL (1.8-8.9); NEUTROPHILS % (AUTO) 79.2 % (43.0-81.0); PLATELET COUNT (AUTO) 177 K/uL (150-450); RED CELL DISTRIBUTION WIDTH 15.8 % (11.5-15.0); WHITE BLOOD COUNT (AUTO) 11.6 K/uL (4.3-11.0)
[2023-11-26 06:59] LABS: CALCIUM, SERUM 11.5 mg/dL (8.5-10.1); CREATININE 2.3 mg/dL (0.6-1.3); POTASSIUM 3.1 mmol/L (3.5-5.1)
[2023-11-26 07:05] LABS: ALBUMIN 1.8 g/dL (3.4-5.0); BILIRUBIN,TOTAL 0.2 mg/dL (0.2-1.0); TOTAL PROTEIN, SERUM 5.8 g/dL (6.4-8.2)
[2023-11-26] MEDS: POTASSIUM CL. PREMIX PERIPHER. 50 ML IV SCH (11:03)
[2023-11-26 20:13] LABS: HEMOGLOBIN 7.9 g/dL (11.5-14.8)
[2023-11-27] VITALS (16 sets, daily range): BP systolic 111–138; BP diastolic 57–83; TEMP 98.2–98.6; O2SAT 95–100
[2023-11-27 06:50] LABS: BASOPHILS # (AUTO) 0.1 K/uL (0.0-0.2); BASOPHILS % (AUTO) 0.6 % (0.0-2.0); EOSINOPHILS # (AUTO) 0.2 K/uL (0.0-0.7); EOSINOPHILS % (AUTO) 1.6 % (0.0-6.0); HEMATOCRIT 22 % (33-45); HEMOGLOBIN 7.2 g/dL (11.5-14.8); LYMPHOCYTES # (AUTO) 1.3 K/uL (0.8-4.8); MEAN CORPUSCULAR HEMOGLOBIN 30 PG (26.0-33.0); MEAN CORPUSCULAR HGB CONC 33 g/dl (31.0-36.0); MEAN CORPUSCULAR VOLUME 91 fL (82-100); MONOCYTES # (AUTO) 1.1 K/uL (0.1-1.30); MONOCYTES % (AUTO) 9.7 % (2.0-12.0); NEUTROPHILS # (AUTO) 8.9 K/uL (1.8-8.9); NEUTROPHILS % (AUTO) 77.1 % (43.0-81.0); PLATELET COUNT (AUTO) 182 K/uL (150-450); RED CELL DISTRIBUTION WIDTH 15.9 % (11.5-15.0); WHITE BLOOD COUNT (AUTO) 11.5 K/uL (4.3-11.0)
[2023-11-27 06:56] LABS: CALCIUM, SERUM 11.6 mg/dL (8.5-10.1); CREATININE 2.4 mg/dL (0.6-1.3)
[2023-11-27 07:11] LABS: ALBUMIN 1.5 g/dL (3.4-5.0); BILIRUBIN,TOTAL 0.2 mg/dL (0.2-1.0); TOTAL PROTEIN, SERUM 5.7 g/dL (6.4-8.2)
[2023-11-27] MEDS: POTASSIUM CL. PREMIX PERIPHER. 50 ML IV SCH (10:18)
[2023-11-27 21:36] LABS: HEMOGLOBIN 6.6 g/dL (11.5-14.8)
[2023-11-28] VITALS (22 sets, daily range): BP systolic 104–166; BP diastolic 51–72; TEMP 97.9–98.8; O2SAT 92–99
[2023-11-28] MEDS: IV NS 0.9% 1,000 ML IV PRN (07:56)
[2023-11-28 08:50] LABS: BASOPHILS # (AUTO) 0.1 K/uL (0.0-0.2); BASOPHILS % (AUTO) 0.4 % (0.0-2.0); EOSINOPHILS # (AUTO) 0.2 K/uL (0.0-0.7); EOSINOPHILS % (AUTO) 1.4 % (0.0-6.0); HEMATOCRIT 29 % (33-45); HEMOGLOBIN 9.4 g/dL (11.5-14.8); LYMPHOCYTES # (AUTO) 1.4 K/uL (0.8-4.8); LYMPHOCYTES % (AUTO) 10.3 % (20.0-44.0); MEAN CORPUSCULAR HEMOGLOBIN 30 PG (26.0-33.0); MEAN CORPUSCULAR HGB CONC 32 g/dl (31.0-36.0); MEAN CORPUSCULAR VOLUME 92 fL (82-100); MONOCYTES # (AUTO) 1.4 K/uL (0.1-1.30); MONOCYTES % (AUTO) 10.4 % (2.0-12.0); NEUTROPHILS # (AUTO) 10.6 K/uL (1.8-8.9); NEUTROPHILS % (AUTO) 77.5 % (43.0-81.0); PLATELET COUNT (AUTO) 202 K/uL (150-450); RED BLOOD CELL COUNT(AUTO) 3.14 MIL/uL (4.0-5.2); RED CELL DISTRIBUTION WIDTH 16.4 % (11.5-15.0); WHITE BLOOD COUNT (AUTO) 13.7 K/uL (4.3-11.0)
[2023-11-28 09:13] LABS: ALBUMIN 1.7 g/dL (3.4-5.0); BILIRUBIN,TOTAL 0.2 mg/dL (0.2-1.0); CALCIUM, SERUM 12.6 mg/dL (8.5-10.1); CREATININE 2.4 mg/dL (0.6-1.3); POTASSIUM 3.3 mmol/L (3.5-5.1); TOTAL PROTEIN, SERUM 6.8 g/dL (6.4-8.2)
[2023-11-28 12:08] LABS: *ANA ANTI-CENTROMERE B AB <0.2 AI (0.0-0.9); *ANA ANTI-DNA(DS) AB, QN 10 IU/mL (0-9); *ANA ANTI-JO-1 <0.2 AI (0.0-0.9); *ANA ANTICHROMATIN ANTIBODY <0.2 AI (0.0-0.9); *ANA RNP ANTIBODIES <0.2 AI (0.0-0.9); *ANA SJOGREN'S ANTI-SS-A <0.2 AI (0.0-0.9); *ANA SJOGREN'S ANTI-SS-B <0.2 AI (0.0-0.9); *ANAANTI-SCLERODERMA-70 AB <0.2 AI (0.0-0.9); *ANASMITH AB <0.2 AI (0.0-0.9)
[2023-11-28 13:07] LABS: COMPLEMENT C3, SERUM 113 mg/dL (82-167); COMPLEMENT C4, SERUM 16 mg/dL (12-38)
[2023-11-28 15:11] LABS: HEPATITIS B SURFACE AB Non Reactive (.)
[2023-11-28 20:41] LABS: HEMOGLOBIN 9.2 g/dL (11.5-14.8)
[2023-11-29] VITALS (15 sets, daily range): BP systolic 121–150; BP diastolic 62–96; TEMP 97.9–98.5; O2SAT 92–100
[2023-11-29 06:26] LABS: BASOPHILS # (AUTO) 0.1 K/uL (0.0-0.2); BASOPHILS % (AUTO) 0.5 % (0.0-2.0); EOSINOPHILS # (AUTO) 0.2 K/uL (0.0-0.7); EOSINOPHILS % (AUTO) 1.1 % (0.0-6.0); HEMATOCRIT 27 % (33-45); HEMOGLOBIN 8.9 g/dL (11.5-14.8); LYMPHOCYTES % (AUTO) 7.4 % (20.0-44.0); MEAN CORPUSCULAR HEMOGLOBIN 31 PG (26.0-33.0); MEAN CORPUSCULAR HGB CONC 33 g/dl (31.0-36.0); MEAN CORPUSCULAR VOLUME 94 fL (82-100); MONOCYTES # (AUTO) 1.3 K/uL (0.1-1.30); MONOCYTES % (AUTO) 9.7 % (2.0-12.0); NEUTROPHILS # (AUTO) 11.1 K/uL (1.8-8.9); NEUTROPHILS % (AUTO) 81.3 % (43.0-81.0); PLATELET COUNT (AUTO) 108 K/uL (150-450); RED BLOOD CELL COUNT(AUTO) 2.91 MIL/uL (4.0-5.2); RED CELL DISTRIBUTION WIDTH 16.7 % (11.5-15.0); WHITE BLOOD COUNT (AUTO) 13.6 K/uL (4.3-11.0)
[2023-11-29 06:45] LABS: ALBUMIN 1.5 g/dL (3.4-5.0); BILIRUBIN,TOTAL 0.2 mg/dL (0.2-1.0); CALCIUM, SERUM 11.9 mg/dL (8.5-10.1); CREATININE 2.2 mg/dL (0.6-1.3); POTASSIUM 3.3 mmol/L (3.5-5.1); TOTAL PROTEIN, SERUM 6.6 g/dL (6.4-8.2)
[2023-11-29] MEDS: POTASSIUM CL. PREMIX PERIPHER. 50 ML IV SCH (11:01)
[2023-11-29] MEDS ORDERED: IPRATROPIUM NEB FS 0.5 MG/2.5 ML AMPUL.NEB ONE (11:48)
[2023-11-29] MEDS ORDERED: ALBUTEROL FS 2.5 MG/3 ML VIAL.NEB ONE (11:48)
[2023-11-29 13:09] LABS: APPEARANCE,URINE SLIGHTLY CLOUDY (CLEAR); BILIRUBIN,URINE NEGATIVE (NEGATIVE); BLOOD, URINE 1+ Ery/uL (NEGATIVE); COLOR,URINE YELLOW (YELLOW); KETONES,URINE NEGATIVE (NEGATIVE); LEUKOCYTE ESTERASE ,URINE 1+ (NEGATIVE); NITRITE, URINE NEGATIVE (NEGATIVE); PROTEIN,URINE 2+ mg/dl (NEGATIVE); UGLUCOSE TRACE mg/dL (NEGATIVE); UROBILINOGEN,URINE 0.2 EU/dL (0.2)
[2023-11-29 14:03] LABS: SQUAMOUS EPITHELIAL CELL,UR Few /HPF (None Seen)
[2023-11-29 14:04] LABS: MUCUS,URINE Few /LPF (None Seen)
[2023-11-29 14:05] LABS: ADD URINE CULTURE YES; BACTERIA,URINE None seen /HPF (None Seen)
[2023-11-29 15:23] LABS: URINE TOTAL PROTEIN 358.4 mg/dL (0-11.9)
[2023-11-29] MEDS ORDERED: PAMIDRONATE 90 MG in IV NS 0.9% 500 ML IV ONE (16:00)
[2023-11-29 16:01] LABS: APPEARANCE,URINE SLIGHTLY CLOUDY (CLEAR); BILIRUBIN,URINE NEGATIVE (NEGATIVE); BLOOD, URINE 1+ Ery/uL (NEGATIVE); COLOR,URINE YELLOW (YELLOW); KETONES,URINE NEGATIVE (NEGATIVE); LEUKOCYTE ESTERASE ,URINE 1+ (NEGATIVE); NITRITE, URINE NEGATIVE (NEGATIVE); PROTEIN,URINE 2+ mg/dl (NEGATIVE); UGLUCOSE TRACE mg/dL (NEGATIVE); UROBILINOGEN,URINE 0.2 EU/dL (0.2)
[2023-11-29 16:41] LABS: ADD URINE CULTURE YES; BACTERIA,URINE 2+ /HPF (None Seen)
[2023-11-29] MEDS: CALCITONIN,SALMON,SYNTHETIC 3.7 ML SPRAY.PUMP NS SCH (17:53)
[2023-11-29 19:43] LABS: HEMOGLOBIN 8.8 g/dL (11.5-14.8)
[2023-11-30] VITALS (19 sets, daily range): BP systolic 95–138; BP diastolic 55–95; TEMP 97.3–98.8; O2SAT 92–98
[2023-11-30 08:35] LABS: CALCIUM, SERUM 11.8 mg/dL (8.5-10.1); CREATININE 2.1 mg/dL (0.6-1.3); POTASSIUM 3.5 mmol/L (3.5-5.1)
[2023-11-30 08:42] LABS: BILIRUBIN,TOTAL 0.2 mg/dL (0.2-1.0); TOTAL PROTEIN, SERUM 5.6 g/dL (6.4-8.2)
[2023-11-30 08:46] LABS: ALBUMIN 1.3 g/dL (3.4-5.0)
[2023-11-30 09:11] LABS: C-REACTIVE PROTEIN 1.77 mg/dL (0.0-0.30)
[2023-11-30 13:52] LABS: BASOPHILS # (AUTO) 0.1 K/uL (0.0-0.2); BASOPHILS % (AUTO) 0.6 % (0.0-2.0); EOSINOPHILS # (AUTO) 0.1 K/uL (0.0-0.7); EOSINOPHILS % (AUTO) 1.2 % (0.0-6.0); HEMATOCRIT 23 % (33-45); HEMOGLOBIN 7.6 g/dL (11.5-14.8); LYMPHOCYTES # (AUTO) 1.4 K/uL (0.8-4.8); LYMPHOCYTES % (AUTO) 11.1 % (20.0-44.0); MEAN CORPUSCULAR HEMOGLOBIN 31 PG (26.0-33.0); MEAN CORPUSCULAR HGB CONC 32 g/dl (31.0-36.0); MEAN CORPUSCULAR VOLUME 95 fL (82-100); MONOCYTES # (AUTO) 1.4 K/uL (0.1-1.30); MONOCYTES % (AUTO) 11.1 % (2.0-12.0); NEUTROPHILS # (AUTO) 9.4 K/uL (1.8-8.9); PLATELET COUNT (AUTO) 160 K/uL (150-450); RED BLOOD CELL COUNT(AUTO) 2.48 MIL/uL (4.0-5.2); RED CELL DISTRIBUTION WIDTH 17.7 % (11.5-15.0); WHITE BLOOD COUNT (AUTO) 12.3 K/uL (4.3-11.0)
[2023-11-30] MEDS: MAGNESIUM HYDROXIDE 30 ML UDC GT PRN (18:08)
[2023-11-30 20:03] LABS: HEMOGLOBIN 7.1 g/dL (11.5-14.8)
[2023-11-30 22:37] LABS: RHEUMATOID FACTOR SCREEN NEGATIVE (NEGATIVE)
[2023-12-01] VITALS (17 sets, daily range): BP systolic 114–146; BP diastolic 53–64; TEMP 97–98.6; O2SAT 90–100
[2023-12-01 00:44] LABS: HIV-1 p24 ANTIGEN NON REACTIVE (NONREACTIVE); HIV-1/2 ANTIBODY NON REACTIVE (NONREACTIVE)
[2023-12-01 07:20] LABS: BASOPHILS # (AUTO) 0.1 K/uL (0.0-0.2); BASOPHILS % (AUTO) 0.6 % (0.0-2.0); EOSINOPHILS # (AUTO) 0.2 K/uL (0.0-0.7); EOSINOPHILS % (AUTO) 1.4 % (0.0-6.0); HEMATOCRIT 25 % (33-45); LYMPHOCYTES # (AUTO) 1.7 K/uL (0.8-4.8); LYMPHOCYTES % (AUTO) 11.2 % (20.0-44.0); MEAN CORPUSCULAR HEMOGLOBIN 31 PG (26.0-33.0); MEAN CORPUSCULAR HGB CONC 32 g/dl (31.0-36.0); MEAN CORPUSCULAR VOLUME 97 fL (82-100); MONOCYTES # (AUTO) 1.7 K/uL (0.1-1.30); MONOCYTES % (AUTO) 11.4 % (2.0-12.0); NEUTROPHILS # (AUTO) 11.4 K/uL (1.8-8.9); NEUTROPHILS % (AUTO) 75.4 % (43.0-81.0); PLATELET COUNT (AUTO) 159 K/uL (150-450); RED BLOOD CELL COUNT(AUTO) 2.57 MIL/uL (4.0-5.2); RED CELL DISTRIBUTION WIDTH 18.8 % (11.5-15.0); WHITE BLOOD COUNT (AUTO) 15.2 K/uL (4.3-11.0)
[2023-12-01 07:23] LABS: ALBUMIN 1.5 g/dL (3.4-5.0); BILIRUBIN,TOTAL 0.2 mg/dL (0.2-1.0); CALCIUM, SERUM 12.2 mg/dL (8.5-10.1); CREATININE 2.2 mg/dL (0.6-1.3); POTASSIUM 3.7 mmol/L (3.5-5.1); TOTAL PROTEIN, SERUM 6.1 g/dL (6.4-8.2)
[2023-12-01 16:09] LABS: *SPE A/G RATIO 0.6 (0.7-1.7); *SPE ALBUMIN 2.2 g/dL (2.9-4.4); *SPE ALPHA-1-GLOBULIN 0.3 g/dL (0.0-0.4); *SPE ALPHA-2-GLOBULIN 0.7 g/dL (0.4-1.0); *SPE BETA GLOBULIN 0.9 g/dL (0.7-1.3); *SPE M-SPIKE Not Observed g/dL (Not Observed); *SPE PROTEIN TOTAL 6.2 g/dL (6.0-8.5); *SPEGAMMA GLOBULIN 2.1 g/dL (0.4-1.8)
[2023-12-02] VITALS (15 sets, daily range): BP systolic 95–127; BP diastolic 47–78; TEMP 96.9–98.3; O2SAT 91–100
[2023-12-02 01:08] LABS: PTH, INTACT 12 pg/mL (15-65)
[2023-12-02] MEDS: BISACODYL SUPP (10 MG) 10 MG/SUPP.RECT SUPP.RECT RC ONE (06:27)
[2023-12-02 07:19] LABS: BASOPHILS % (AUTO) 0.1 % (0.0-2.0); EOSINOPHILS # (AUTO) 0.1 K/uL (0.0-0.7); EOSINOPHILS % (AUTO) 0.4 % (0.0-6.0); HEMATOCRIT 27 % (33-45); HEMOGLOBIN 8.1 g/dL (11.5-14.8); LYMPHOCYTES # (AUTO) 1.4 K/uL (0.8-4.8); LYMPHOCYTES % (AUTO) 7.5 % (20.0-44.0); MEAN CORPUSCULAR HEMOGLOBIN 31 PG (26.0-33.0); MEAN CORPUSCULAR HGB CONC 30 g/dl (31.0-36.0); MEAN CORPUSCULAR VOLUME 102 fL (82-100); MONOCYTES # (AUTO) 1.8 K/uL (0.1-1.30); MONOCYTES % (AUTO) 9.6 % (2.0-12.0); NEUTROPHILS # (AUTO) 15.9 K/uL (1.8-8.9); NEUTROPHILS % (AUTO) 82.4 % (43.0-81.0); PLATELET COUNT (AUTO) 154 K/uL (150-450); RED BLOOD CELL COUNT(AUTO) 2.62 MIL/uL (4.0-5.2); RED CELL DISTRIBUTION WIDTH 20.2 % (11.5-15.0); WHITE BLOOD COUNT (AUTO) 19.2 K/uL (4.3-11.0)
[2023-12-02 09:11] LABS: FOLIC ACID 5.2 ng/mL (>3.0)
[2023-12-02 10:33] LABS: CREATININE 2.6 mg/dL (0.6-1.3); POTASSIUM 4.1 mmol/L (3.5-5.1)
[2023-12-02 11:27] LABS: PHOSPHORUS 3.8 mg/dL (2.5-4.9)
[2023-12-02 13:10] LABS: FREE KAPPA LT CHAINS SERUM 258.7 mg/L (3.3-19.4); FREE LAMBDA LT CHAIN SERUM 147.3 mg/L (5.7-26.3); KAPPA/LAMBDA RATIO SERUM 1.76 (0.26-1.65)
[2023-12-03] VITALS (32 sets, daily range): BP systolic 88–145; BP diastolic 45–105; TEMP 97.5–97.9; O2SAT 90–99
[2023-12-03 02:16] LABS: ABG BASE EXCESS -2.3 mmol/L; ABG OXYGEN SATURATION 87.8 % (92.0-98.5); ABG PH 6.996 (7.350-7.450); ABG PO2 60.8 mmHg (75.0-100.0); ABG TOTAL HEMOGLOBIN 7.8 G/dL (12.0-16.0); AaDO2 80.7 mmHg; COHb 2.1 % (0.5-1.5); MetHb 0.2 % (0.0-1.5); O2Hb 85.8 % (94.0-97.0); SITE, ABG Right Brachial; VENT MODE, BG cool aerosol 40% 10l
[2023-12-03 05:31] LABS: ABG BASE EXCESS 2.7 mmol/L; ABG OXYGEN SATURATION 93.2 % (92.0-98.5); ABG PCO2 67.5 mmHg (35.0-45.0); ABG PO2 63.3 mmHg (75.0-100.0); ABG TOTAL HEMOGLOBIN 7.9 G/dL (12.0-16.0); AaDO2 144.3 mmHg; COHb 1.4 % (0.5-1.5); MetHb 0.3 % (0.0-1.5); O2Hb 91.6 % (94.0-97.0); PEEP,BG 5 cm H2O; SITE, ABG Right Radial; VENT MODE, BG AC 16 500 40% +5; VT, ABG 500 mL
[2023-12-03 08:06] LABS: BASOPHILS % (AUTO) 0.2 % (0.0-2.0); EOSINOPHILS # (AUTO) 0.1 K/uL (0.0-0.7); EOSINOPHILS % (AUTO) 0.4 % (0.0-6.0); LYMPHOCYTES # (AUTO) 0.8 K/uL (0.8-4.8); LYMPHOCYTES % (AUTO) 6.1 % (20.0-44.0); MEAN CORPUSCULAR HEMOGLOBIN 32 PG (26.0-33.0); MEAN CORPUSCULAR HGB CONC 30 g/dl (31.0-36.0); MEAN CORPUSCULAR VOLUME 108 fL (82-100); MONOCYTES # (AUTO) 1.4 K/uL (0.1-1.30); MONOCYTES % (AUTO) 10.4 % (2.0-12.0); NEUTROPHILS # (AUTO) 10.9 K/uL (1.8-8.9); NEUTROPHILS % (AUTO) 82.9 % (43.0-81.0); PLATELET COUNT (AUTO) 104 K/uL (150-450); RED CELL DISTRIBUTION WIDTH 20.3 % (11.5-15.0); WHITE BLOOD COUNT (AUTO) 13.2 K/uL (4.3-11.0)
[2023-12-03 08:13] LABS: HEMATOCRIT 17 % (33-45); HEMOGLOBIN 5.1 g/dL (11.5-14.8)
[2023-12-03 08:27] LABS: CALCIUM, SERUM 12.2 mg/dL (8.5-10.1); CREATININE 3.3 mg/dL (0.6-1.3); MAGNESIUM 3.2 mg/dL (1.8-2.4); PHOSPHORUS 4.7 mg/dL (2.5-4.9); POTASSIUM 3.9 mmol/L (3.5-5.1)
[2023-12-03 09:37] LABS: ABG BASE EXCESS 2.8 mmol/L; ABG OXYGEN SATURATION 92.6 % (92.0-98.5); ABG PCO2 49.5 mmHg (35.0-45.0); ABG PH 7.377 (7.350-7.450); ABG PO2 59.7 mmHg (75.0-100.0); AaDO2 168.6 mmHg; COHb 0.8 % (0.5-1.5); MetHb 0.3 % (0.0-1.5); O2Hb 91.6 % (94.0-97.0); SITE, ABG Right Radial; VENT MODE, BG AC 18 550 40% +5
[2023-12-03 11:07] LABS: ANISOCYTOSIS 1+; EOSINOPHILS % (MANUAL) 0 % (0-4); LYMPHOCYTES % (MANUAL) 7 % (16-48); MONOCYTES % (MANUAL) 10 % (0-11.0); NEUTROPHILS % (MANUAL) 83 (42-76); PLATELET ESTIMATE DECREASED
[2023-12-03 13:11] LABS: BETA-2 MICROGLOBULIN, SERUM 9.6 mg/L (0.6-2.4)
[2023-12-03 14:53] LABS: BASOPHILS % (AUTO) 0.1 % (0.0-2.0); EOSINOPHILS # (AUTO) 0.1 K/uL (0.0-0.7); EOSINOPHILS % (AUTO) 0.6 % (0.0-6.0); HEMATOCRIT 23 % (33-45); LYMPHOCYTES # (AUTO) 1.3 K/uL (0.8-4.8); LYMPHOCYTES % (AUTO) 6.7 % (20.0-44.0); MEAN CORPUSCULAR HEMOGLOBIN 31 PG (26.0-33.0); MEAN CORPUSCULAR HGB CONC 30 g/dl (31.0-36.0); MEAN CORPUSCULAR VOLUME 103 fL (82-100); MONOCYTES % (AUTO) 10.5 % (2.0-12.0); NEUTROPHILS # (AUTO) 15.8 K/uL (1.8-8.9); NEUTROPHILS % (AUTO) 82.1 % (43.0-81.0); PLATELET COUNT (AUTO) 143 K/uL (150-450); RED BLOOD CELL COUNT(AUTO) 2.26 MIL/uL (4.0-5.2); RED CELL DISTRIBUTION WIDTH 20.2 % (11.5-15.0); WHITE BLOOD COUNT (AUTO) 19.2 K/uL (4.3-11.0)
[2023-12-03 18:52] LABS: D-DIMER 0.43 mg/L(FEU (0.17-0.50); INR 1.07 (0.91-1.10); PROTHROMBIN TIME 11.3 SECS (9.2-11.1)
[2023-12-03 19:00] LABS: PLATELET ESTIMATE DECREASED
[2023-12-03 19:01] LABS: ANISOCYTOSIS 1+; OVALOCYTES 1+
[2023-12-03] MEDS: VANCOMYCIN 750 MG in IV D5W 250 ML IV SCH (21:04)
[2023-12-03] MEDS: IV D5W 1,000 ML IV PRN (21:13)
[2023-12-04] VITALS (38 sets, daily range): BP systolic 69–152; BP diastolic 31–139; TEMP 97.7–99.4; O2SAT 87–100
[2023-12-04 06:43] LABS: BASOPHILS % (AUTO) 0.2 % (0.0-2.0); EOSINOPHILS # (AUTO) 0.2 K/uL (0.0-0.7); EOSINOPHILS % (AUTO) 0.9 % (0.0-6.0); HEMATOCRIT 23 % (33-45); HEMOGLOBIN 7.4 g/dL (11.5-14.8); LYMPHOCYTES # (AUTO) 1.5 K/uL (0.8-4.8); LYMPHOCYTES % (AUTO) 8.4 % (20.0-44.0); MEAN CORPUSCULAR HEMOGLOBIN 31 PG (26.0-33.0); MEAN CORPUSCULAR HGB CONC 32 g/dl (31.0-36.0); MEAN CORPUSCULAR VOLUME 95 fL (82-100); MONOCYTES # (AUTO) 1.5 K/uL (0.1-1.30); MONOCYTES % (AUTO) 8.9 % (2.0-12.0); NEUTROPHILS # (AUTO) 14.1 K/uL (1.8-8.9); NEUTROPHILS % (AUTO) 81.6 % (43.0-81.0); PLATELET COUNT (AUTO) 146 K/uL (150-450); RED BLOOD CELL COUNT(AUTO) 2.41 MIL/uL (4.0-5.2); RED CELL DISTRIBUTION WIDTH 20.8 % (11.5-15.0); WHITE BLOOD COUNT (AUTO) 17.3 K/uL (4.3-11.0)
[2023-12-04 06:55] LABS: D-DIMER 0.5 mg/L(FEU (0.17-0.50); INR 1.08 (0.91-1.10); PARTIAL THROMBOPLASTIN TIME 25.6 SEC (24.3-34.3); PROTHROMBIN TIME 11.4 SECS (9.2-11.1)
[2023-12-04 07:17] LABS: BILIRUBIN,TOTAL 0.3 mg/dL (0.2-1.0); CALCIUM, SERUM 11.8 mg/dL (8.5-10.1); CREATININE 3.9 mg/dL (0.6-1.3); MAGNESIUM 2.8 mg/dL (1.8-2.4); PHOSPHORUS 2.6 mg/dL (2.5-4.9); POTASSIUM 3.1 mmol/L (3.5-5.1); TOTAL PROTEIN, SERUM 5.8 g/dL (6.4-8.2)
[2023-12-04 07:40] LABS: ALBUMIN 1.4 g/dL (3.4-5.0)
[2023-12-04 08:47] LABS: ABG BASE EXCESS 1.2 mmol/L; ABG OXYGEN SATURATION 98.8 % (92.0-98.5); ABG PCO2 51.2 mmHg (35.0-45.0); ABG PH 7.344 (7.350-7.450); ABG PO2 143.8 mmHg (75.0-100.0); ABG TOTAL HEMOGLOBIN 8.2 G/dL (12.0-16.0); AaDO2 118.8 mmHg; COHb 1.1 % (0.5-1.5); MetHb 0.4 % (0.0-1.5); O2Hb 97.3 % (94.0-97.0); SITE, ABG Right Radial; VENT MODE, BG CPAP 5 PSV 12
[2023-12-04] MEDS: BUMETANIDE INJ 4 MG in IV NS 0.9% 24 ML IV ONE (09:10)
[2023-12-04 10:31] LABS: APPEARANCE,URINE SLIGHTLY CLOUDY (CLEAR); BILIRUBIN,URINE NEGATIVE (NEGATIVE); BLOOD, URINE 3+ Ery/uL (NEGATIVE); COLOR,URINE YELLOW (YELLOW); KETONES,URINE NEGATIVE (NEGATIVE); LEUKOCYTE ESTERASE ,URINE 1+ (NEGATIVE); NITRITE, URINE NEGATIVE (NEGATIVE); PH,URINE 6.5 (5.0-8.0); PROTEIN,URINE 3+ mg/dl (NEGATIVE); UGLUCOSE NEGATIVE (NEGATIVE); UROBILINOGEN,URINE 0.2 EU/dL (0.2)
[2023-12-04 11:11] LABS: ADD URINE CULTURE YES; BACTERIA,URINE Few /HPF (None Seen); WBC,URINE TOO NUMEROUS TO COUN /HPF (0-3)
[2023-12-04] MEDS: METRONIDAZOLE 500MG/ NS 100ML 500 MG in PREMIX 1 EA IV SCH (20:13)
[2023-12-04] MEDS: CEFEPIME 1 GM in IV D5W 50 ML IV SCH (21:10)
[2023-12-05] VITALS (31 sets, daily range): BP systolic 75–129; BP diastolic 34–83; TEMP 97.5–98.7; O2SAT 90–100
[2023-12-05 05:07] LABS: BASOPHILS % (AUTO) 0.3 % (0.0-2.0); EOSINOPHILS # (AUTO) 0.3 K/uL (0.0-0.7); EOSINOPHILS % (AUTO) 2.3 % (0.0-6.0); HEMATOCRIT 24 % (33-45); HEMOGLOBIN 7.4 g/dL (11.5-14.8); LYMPHOCYTES # (AUTO) 1.9 K/uL (0.8-4.8); LYMPHOCYTES % (AUTO) 12.6 % (20.0-44.0); MEAN CORPUSCULAR HEMOGLOBIN 31 PG (26.0-33.0); MEAN CORPUSCULAR HGB CONC 31 g/dl (31.0-36.0); MEAN CORPUSCULAR VOLUME 98 fL (82-100); MONOCYTES # (AUTO) 1.4 K/uL (0.1-1.30); NEUTROPHILS # (AUTO) 11.6 K/uL (1.8-8.9); NEUTROPHILS % (AUTO) 75.8 % (43.0-81.0); PLATELET COUNT (AUTO) 130 K/uL (150-450); RED CELL DISTRIBUTION WIDTH 21.9 % (11.5-15.0); WHITE BLOOD COUNT (AUTO) 15.3 K/uL (4.3-11.0)
[2023-12-05 05:31] LABS: D-DIMER 0.73 mg/L(FEU (0.17-0.50); INR 1.03 (0.91-1.10); PARTIAL THROMBOPLASTIN TIME 26.8 SEC (24.3-34.3); PROTHROMBIN TIME 10.9 SECS (9.2-11.1)
[2023-12-05 08:26] LABS: POTASSIUM 3.5 mmol/L (3.5-5.1)
[2023-12-05 08:40] LABS: ABG BASE EXCESS -2.8 mmol/L; ABG PCO2 90.9 mmHg (35.0-45.0); ABG PH 7.102 (7.350-7.450); ABG PO2 84.4 mmHg (75.0-100.0); COHb 0.7 % (0.5-1.5); MetHb 0.5 % (0.0-1.5); O2Hb 93.9 % (94.0-97.0); SITE, ABG Right Radial; VENT MODE, BG CA 40%
[2023-12-05 08:49] LABS: BILIRUBIN,TOTAL 0.2 mg/dL (0.2-1.0); CALCIUM, SERUM 11.5 mg/dL (8.5-10.1); CREATININE 4.6 mg/dL (0.6-1.3); MAGNESIUM 2.9 mg/dL (1.8-2.4); PHOSPHORUS 4.9 mg/dL (2.5-4.9); TOTAL PROTEIN, SERUM 5.9 g/dL (6.4-8.2)
[2023-12-05 09:10] LABS: ALBUMIN 1.4 g/dL (3.4-5.0)
[2023-12-05] MEDS: ONDANSETRON HCL/PF 4 MG/2 ML VIAL IVP PRN (14:47)
[2023-12-06] VITALS (33 sets, daily range): BP systolic 85–136; BP diastolic 29–90; TEMP 98.1–100.2; O2SAT 93–100
[2023-12-06 04:48] LABS: BASOPHILS % (AUTO) 0.1 % (0.0-2.0); EOSINOPHILS # (AUTO) 0.1 K/uL (0.0-0.7); EOSINOPHILS % (AUTO) 0.6 % (0.0-6.0); HEMATOCRIT 25 % (33-45); HEMOGLOBIN 7.7 g/dL (11.5-14.8); LYMPHOCYTES # (AUTO) 0.8 K/uL (0.8-4.8); LYMPHOCYTES % (AUTO) 4.7 % (20.0-44.0); MEAN CORPUSCULAR HEMOGLOBIN 30 PG (26.0-33.0); MEAN CORPUSCULAR HGB CONC 31 g/dl (31.0-36.0); MEAN CORPUSCULAR VOLUME 97 fL (82-100); MONOCYTES # (AUTO) 1.4 K/uL (0.1-1.30); MONOCYTES % (AUTO) 7.9 % (2.0-12.0); NEUTROPHILS # (AUTO) 15.7 K/uL (1.8-8.9); NEUTROPHILS % (AUTO) 86.7 % (43.0-81.0); PLATELET COUNT (AUTO) 144 K/uL (150-450); RED BLOOD CELL COUNT(AUTO) 2.55 MIL/uL (4.0-5.2); RED CELL DISTRIBUTION WIDTH 20.9 % (11.5-15.0); WHITE BLOOD COUNT (AUTO) 18.1 K/uL (4.3-11.0)
[2023-12-06 05:04] LABS: CALCIUM, SERUM 11.4 mg/dL (8.5-10.1); CREATININE 5.1 mg/dL (0.6-1.3); POTASSIUM 3.6 mmol/L (3.5-5.1)
[2023-12-06 05:09] LABS: BILIRUBIN,TOTAL 0.3 mg/dL (0.2-1.0)
[2023-12-06 05:12] LABS: ALBUMIN 1.4 g/dL (3.4-5.0)
[2023-12-06 10:23] LABS: ABG BASE EXCESS -2.9 mmol/L; ABG PCO2 39.2 mmHg (35.0-45.0); ABG PO2 92.9 mmHg (75.0-100.0); ABG TOTAL HEMOGLOBIN 8.5 G/dL (12.0-16.0); AaDO2 183.4 mmHg; COHb 0.6 % (0.5-1.5); MetHb 0.2 % (0.0-1.5); O2Hb 96.2 % (94.0-97.0); PEEP,BG 5 cm H2O; SITE, ABG Right Radial; VT, ABG 550 mL
[2023-12-06] MEDS: BISACODYL SUPP (10 MG) 10 MG/SUPP.RECT SUPP.RECT RC PRN (16:27)
[2023-12-06] MEDS: diphenhydrAMINE HCL ELIX 25 MG/10 ML UDC PO PRN (20:49)
[2023-12-07] VITALS (7 sets, daily range): BP systolic 108–138; BP diastolic 47–77; TEMP 97.3–98.9; O2SAT 94–97
[2023-12-07 07:57] LABS: BASOPHILS % (AUTO) 0.1 % (0.0-2.0); EOSINOPHILS # (AUTO) 0.1 K/uL (0.0-0.7); EOSINOPHILS % (AUTO) 0.9 % (0.0-6.0); HEMATOCRIT 24 % (33-45); HEMOGLOBIN 7.5 g/dL (11.5-14.8); LYMPHOCYTES # (AUTO) 1.2 K/uL (0.8-4.8); LYMPHOCYTES % (AUTO) 7.9 % (20.0-44.0); MEAN CORPUSCULAR HEMOGLOBIN 31 PG (26.0-33.0); MEAN CORPUSCULAR HGB CONC 32 g/dl (31.0-36.0); MEAN CORPUSCULAR VOLUME 97 fL (82-100); MONOCYTES # (AUTO) 1.7 K/uL (0.1-1.30); MONOCYTES % (AUTO) 11.4 % (2.0-12.0); NEUTROPHILS # (AUTO) 11.8 K/uL (1.8-8.9); NEUTROPHILS % (AUTO) 79.7 % (43.0-81.0); PLATELET COUNT (AUTO) 117 K/uL (150-450); RED BLOOD CELL COUNT(AUTO) 2.42 MIL/uL (4.0-5.2); RED CELL DISTRIBUTION WIDTH 22.6 % (11.5-15.0); WHITE BLOOD COUNT (AUTO) 14.8 K/uL (4.3-11.0)
[2023-12-07 08:02] LABS: BILIRUBIN,TOTAL 0.3 mg/dL (0.2-1.0); CALCIUM, SERUM 9.9 mg/dL (8.5-10.1); CREATININE 4.3 mg/dL (0.6-1.3); POTASSIUM 3.1 mmol/L (3.5-5.1); TOTAL PROTEIN, SERUM 6.1 g/dL (6.4-8.2)
[2023-12-07 08:46] LABS: ALBUMIN 1.2 g/dL (3.4-5.0)
[2023-12-07] MEDS: POTASSIUM CL. PREMIX PERIPHER. 50 ML IV SCH (20:54)
[2023-12-08] VITALS: BP 106/61; TEMP 98.7
[2023-12-08 04:00] VITALS: BP 104/81; TEMP 98.5; O2SAT 100
[2023-12-08 07:29] LABS: EOSINOPHILS # (AUTO) 0.1 K/uL (0.0-0.7); HEMATOCRIT 22 % (33-45); HEMOGLOBIN 7.3 g/dL (11.5-14.8); LYMPHOCYTES # (AUTO) 1.1 K/uL (0.8-4.8); LYMPHOCYTES % (AUTO) 8.5 % (20.0-44.0); MEAN CORPUSCULAR HEMOGLOBIN 31 PG (26.0-33.0); MEAN CORPUSCULAR HGB CONC 33 g/dl (31.0-36.0); MEAN CORPUSCULAR VOLUME 95 fL (82-100); MONOCYTES # (AUTO) 1.6 K/uL (0.1-1.30); MONOCYTES % (AUTO) 11.7 % (2.0-12.0); NEUTROPHILS # (AUTO) 10.6 K/uL (1.8-8.9); NEUTROPHILS % (AUTO) 78.8 % (43.0-81.0); PLATELET COUNT (AUTO) 125 K/uL (150-450); RED BLOOD CELL COUNT(AUTO) 2.33 MIL/uL (4.0-5.2); RED CELL DISTRIBUTION WIDTH 22.3 % (11.5-15.0); WHITE BLOOD COUNT (AUTO) 13.5 K/uL (4.3-11.0)
[2023-12-08 07:46] LABS: CALCIUM, SERUM 8.7 mg/dL (8.5-10.1); CREATININE 3.3 mg/dL (0.6-1.3); MAGNESIUM 2.1 mg/dL (1.8-2.4); PHOSPHORUS 2.9 mg/dL (2.5-4.9); POTASSIUM 3.5 mmol/L (3.5-5.1)
[2023-12-08 08:00] VITALS: BP 120/66; TEMP 98.5; O2SAT 97
[2023-12-08] MEDS: METOCLOPRAMIDE HCL 10 MG/2 ML VIAL IV SCH ×2 (09:17→13:21)
[2023-12-08] MEDS: METOCLOPRAMIDE HCL 10 MG/2 ML VIAL IV ONE (09:18)
[2023-12-08 12:00] VITALS: BP 114/75; TEMP 97.6; O2SAT 94
[2023-12-08] MEDS: LORAZEPAM INJ 2 MG/ML VIAL IVP PRN (13:30)
[2023-12-08 16:00] VITALS: BP 112/80; TEMP 97.8; O2SAT 99
[2023-12-08 20:00] VITALS: BP 87/60; TEMP 98.1; O2SAT 91
[2023-12-08] MEDS: HEPARIN SODIUM, PORCINE 5000 UNITS/1 ML VIAL SQ SCH (20:24)
[2023-12-09] VITALS: BP 103/57; TEMP 98; O2SAT 91
[2023-12-09 04:00] VITALS: BP 87/57; TEMP 98.5; O2SAT 91
[2023-12-09 08:00] VITALS: BP 123/58; TEMP 99; O2SAT 95
[2023-12-09] MEDS: MORPHINE SULFATE INJ 2 MG/ML DISP.SYRIN IV PRN (10:40)
[2023-12-09] MEDS: IV D5W 1,000 ML IV ONE (11:36)
[2023-12-09 12:00] VITALS: BP 88/56; TEMP 99; O2SAT 96
[2023-12-09 16:00] VITALS: BP 93/57; TEMP 99; O2SAT 92
[2023-12-09 20:00] VITALS: BP 106/55; TEMP 99.1; O2SAT 97
[2023-12-10] VITALS (7 sets, daily range): BP systolic 93–145; BP diastolic 55–85; TEMP 98.1–99.3; O2SAT 95–96
[2023-12-10] MEDS: VANCOMYCIN HCL 1.25 GM in IV D5W 250 ML IV ONE (13:01)
[2023-12-11] VITALS: BP 118/69; TEMP 99.1; O2SAT 94
[2023-12-11 04:00] VITALS: BP 122/65; TEMP 98.9; O2SAT 94
[2023-12-11 06:50] LABS: BASOPHILS % (AUTO) 0.3 % (0.0-2.0); EOSINOPHILS # (AUTO) 0.2 K/uL (0.0-0.7); EOSINOPHILS % (AUTO) 2.5 % (0.0-6.0); HEMATOCRIT 24 % (33-45); HEMOGLOBIN 7.7 g/dL (11.5-14.8); LYMPHOCYTES # (AUTO) 1.1 K/uL (0.8-4.8); LYMPHOCYTES % (AUTO) 11.1 % (20.0-44.0); MEAN CORPUSCULAR HEMOGLOBIN 31 PG (26.0-33.0); MEAN CORPUSCULAR HGB CONC 33 g/dl (31.0-36.0); MEAN CORPUSCULAR VOLUME 95 fL (82-100); MONOCYTES % (AUTO) 10.7 % (2.0-12.0); NEUTROPHILS # (AUTO) 7.3 K/uL (1.8-8.9); NEUTROPHILS % (AUTO) 75.4 % (43.0-81.0); PLATELET COUNT (AUTO) 197 K/uL (150-450); RED BLOOD CELL COUNT(AUTO) 2.48 MIL/uL (4.0-5.2); WHITE BLOOD COUNT (AUTO) 9.8 K/uL (4.3-11.0)
[2023-12-11 07:03] LABS: CALCIUM, SERUM 8.1 mg/dL (8.5-10.1); CREATININE 3.9 mg/dL (0.6-1.3)
[2023-12-11 07:08] LABS: BILIRUBIN,TOTAL 0.4 mg/dL (0.2-1.0); TOTAL PROTEIN, SERUM 5.9 g/dL (6.4-8.2)
[2023-12-11 07:39] LABS: ALBUMIN 1.1 g/dL (3.4-5.0)
[2023-12-11 08:00] VITALS: BP 106/52; TEMP 98.1; O2SAT 96
[2023-12-11] MEDS: POTASSIUM CHLORIDE 20 MEQ POWDER PACKET GT ONE (10:57)
[2023-12-11 12:00] VITALS: BP 110/55; TEMP 99.2; O2SAT 96
[2023-12-11 12:17] LABS: CALCIUM, SERUM 8.2 mg/dL (8.5-10.1); POTASSIUM 2.9 mmol/L (3.5-5.1)
[2023-12-11 16:00] VITALS: BP 106/57; TEMP 99.9; O2SAT 99
[2023-12-11] MEDS: ACETAMINOPHEN 650 MG/20.3 ML UDC GT PRN (16:32)
[2023-12-11 20:00] VITALS: BP 137/68; TEMP 99.2; O2SAT 97
[2023-12-11] MEDS ORDERED: SENNOSIDES 8.6 MG TABLET PO SCH (22:00)
[2023-12-12] VITALS (8 sets, daily range): BP systolic 91–128; BP diastolic 47–84; TEMP 97–99.8; O2SAT 98–99
[2023-12-12] MEDS ORDERED: DOCUSATE SODIUM LIQ 100 MG/10 ML UDC PEG SCH (09:00)
[2023-12-12] MEDS ORDERED: VANCOMYCIN 1 GM in IV D5W 250 ML IV SCH (13:00)
[2023-12-13] VITALS (10 sets, daily range): BP systolic 61–122; BP diastolic 33–101; TEMP 97.8–100; O2SAT 95–100
[2023-12-13] MEDS: ALTEPLASE CATHFLO 2 MG/VIAL XX ONE ×2 (11:08→11:53)
[2023-12-13 15:35] LABS: BASOPHILS # (AUTO) 0.1 K/uL (0.0-0.2); BASOPHILS % (AUTO) 0.5 % (0.0-2.0); EOSINOPHILS # (AUTO) 0.2 K/uL (0.0-0.7); EOSINOPHILS % (AUTO) 1.2 % (0.0-6.0); HEMATOCRIT 24 % (33-45); HEMOGLOBIN 7.7 g/dL (11.5-14.8); LYMPHOCYTES # (AUTO) 1.3 K/uL (0.8-4.8); LYMPHOCYTES % (AUTO) 8.1 % (20.0-44.0); MEAN CORPUSCULAR HEMOGLOBIN 31 PG (26.0-33.0); MEAN CORPUSCULAR HGB CONC 33 g/dl (31.0-36.0); MEAN CORPUSCULAR VOLUME 94 fL (82-100); MONOCYTES # (AUTO) 1.3 K/uL (0.1-1.30); MONOCYTES % (AUTO) 8.1 % (2.0-12.0); NEUTROPHILS # (AUTO) 13.1 K/uL (1.8-8.9); NEUTROPHILS % (AUTO) 82.1 % (43.0-81.0); PLATELET COUNT (AUTO) 315 K/uL (150-450); RED BLOOD CELL COUNT(AUTO) 2.49 MIL/uL (4.0-5.2); RED CELL DISTRIBUTION WIDTH 20.5 % (11.5-15.0); WHITE BLOOD COUNT (AUTO) 15.9 K/uL (4.3-11.0)
[2023-12-13 15:51] LABS: CALCIUM, SERUM 8.7 mg/dL (8.5-10.1); CREATININE 3.5 mg/dL (0.6-1.3)
[2023-12-13 15:57] LABS: BILIRUBIN,TOTAL 0.4 mg/dL (0.2-1.0); TOTAL PROTEIN, SERUM 6.1 g/dL (6.4-8.2)
[2023-12-13 15:58] LABS: POTASSIUM 2.6 mmol/L (3.5-5.1)
[2023-12-13 15:59] LABS: ALBUMIN 1.2 g/dL (3.4-5.0)
[2023-12-13] MEDS: risperiDONE 1 MG TABLET PO SCH (17:19)
[2023-12-13] MEDS: VANCOMYCIN 500 MG in IV D5W 100 ML IV PRN (19:17)
[2023-12-13 22:46] LABS: ANISOCYTOSIS 1+; LYMPHOCYTES % (MANUAL) 7 % (16-48); MONOCYTES % (MANUAL) 9 % (0-11.0); NEUTROPHILS % (MANUAL) 84 (42-76); PLATELET ESTIMATE ADEQU
[2023-12-13] MEDS: AMIODARONE 150 MG/3 ML VIAL IV ONE (23:28)
[2023-12-14] VITALS (43 sets, daily range): BP systolic 62–140; BP diastolic 32–116; TEMP 98–98.8; O2SAT 91–100
[2023-12-14] MEDS ORDERED: PHENYLEPHRINE 100 MG in IV NS 0.9% 240 ML IV PRN
[2023-12-14] MEDS: IV NS 0.9% 500 ML IV ONE ×2 (00:06→01:05)
[2023-12-14] MEDS: AMIODARONE 450 MG in IV D5W 241 ML IV PRN (01:51)
[2023-12-14] MEDS: AMIODARONE 150 MG in IV D5W 100 ML IV ONE ×2 (01:53→02:36)
[2023-12-14] MEDS: AMIODARONE 150 MG/3 ML VIAL IV ONE ×2 (01:53→01:54)
[2023-12-14] MEDS: PHENYLEPHRINE 10 MG/ML VIAL ONE (01:54)
[2023-12-14 07:41] LABS: BASOPHILS % (AUTO) 0.2 % (0.0-2.0); EOSINOPHILS # (AUTO) 0.1 K/uL (0.0-0.7); EOSINOPHILS % (AUTO) 0.8 % (0.0-6.0); HEMATOCRIT 24 % (33-45); HEMOGLOBIN 7.6 g/dL (11.5-14.8); LYMPHOCYTES # (AUTO) 0.8 K/uL (0.8-4.8); MEAN CORPUSCULAR HEMOGLOBIN 31 PG (26.0-33.0); MEAN CORPUSCULAR HGB CONC 32 g/dl (31.0-36.0); MEAN CORPUSCULAR VOLUME 98 fL (82-100); MONOCYTES # (AUTO) 1.5 K/uL (0.1-1.30); MONOCYTES % (AUTO) 8.7 % (2.0-12.0); NEUTROPHILS # (AUTO) 14.6 K/uL (1.8-8.9); NEUTROPHILS % (AUTO) 85.3 % (43.0-81.0); PLATELET COUNT (AUTO) 250 K/uL (150-450); RED BLOOD CELL COUNT(AUTO) 2.47 MIL/uL (4.0-5.2); RED CELL DISTRIBUTION WIDTH 21.4 % (11.5-15.0); WHITE BLOOD COUNT (AUTO) 17.1 K/uL (4.3-11.0)
[2023-12-14 07:53] LABS: CALCIUM, SERUM 9.1 mg/dL (8.5-10.1); CREATININE 3.3 mg/dL (0.6-1.3); POTASSIUM 2.9 mmol/L (3.5-5.1)
[2023-12-14 07:58] LABS: BILIRUBIN,TOTAL 0.4 mg/dL (0.2-1.0); TOTAL PROTEIN, SERUM 6.6 g/dL (6.4-8.2)
[2023-12-14 08:07] LABS: ALBUMIN 1.4 g/dL (3.4-5.0)
[2023-12-14] MEDS: SERTRALINE HCL 50 MG TABLET PO SCH (08:09)
[2023-12-14] MEDS: POTASSIUM CHLORIDE 20 MEQ TAB.PRT.SR PO ONE (09:06)
[2023-12-14] MEDS: DIGOXIN INJ 0.5 MG/2 ML AMPUL IV ONE (10:04)
[2023-12-14] MEDS: POTASSIUM CHLORIDE 20 MEQ POWDER PACKET GT ONE (10:19)
[2023-12-14 11:55] LABS: CALCIUM, SERUM 8.8 mg/dL (8.5-10.1); CREATININE 3.4 mg/dL (0.6-1.3); POTASSIUM 4.2 mmol/L (3.5-5.1)
[2023-12-14] MEDS: MEROPENEM 500 MG in IV NS 0.9% 50 ML IV SCH (14:10)
[2023-12-15] VITALS (85 sets, daily range): BP systolic 85–162; BP diastolic 37–86; TEMP 97.9–98.8; O2SAT 93–100
[2023-12-15 04:48] LABS: POTASSIUM 3.2 mmol/L (3.5-5.1)
[2023-12-15 04:54] LABS: BILIRUBIN,TOTAL 0.4 mg/dL (0.2-1.0); TOTAL PROTEIN, SERUM 6.1 g/dL (6.4-8.2)
[2023-12-15 04:56] LABS: BASOPHILS % (AUTO) 0.1 % (0.0-2.0); HEMATOCRIT 21 % (33-45); LYMPHOCYTES # (AUTO) 0.4 K/uL (0.8-4.8); LYMPHOCYTES % (AUTO) 2.3 % (20.0-44.0); MEAN CORPUSCULAR HEMOGLOBIN 31 PG (26.0-33.0); MEAN CORPUSCULAR HGB CONC 32 g/dl (31.0-36.0); MEAN CORPUSCULAR VOLUME 97 fL (82-100); MONOCYTES # (AUTO) 1.3 K/uL (0.1-1.30); MONOCYTES % (AUTO) 6.9 % (2.0-12.0); NEUTROPHILS # (AUTO) 17.3 K/uL (1.8-8.9); NEUTROPHILS % (AUTO) 90.7 % (43.0-81.0); PLATELET COUNT (AUTO) 208 K/uL (150-450); RED BLOOD CELL COUNT(AUTO) 2.19 MIL/uL (4.0-5.2); RED CELL DISTRIBUTION WIDTH 20.7 % (11.5-15.0); WHITE BLOOD COUNT (AUTO) 19.1 K/uL (4.3-11.0)
[2023-12-15 04:58] LABS: D-DIMER 4.06 mg/L(FEU (0.17-0.50); INR 1.09 (0.91-1.10); PARTIAL THROMBOPLASTIN TIME 23.3 SEC (24.3-34.3); PROTHROMBIN TIME 11.5 SECS (9.2-11.1)
[2023-12-15 05:00] LABS: ALBUMIN 1.2 g/dL (3.4-5.0); HEMOGLOBIN 6.8 g/dL (11.5-14.8)
[2023-12-15 05:52] LABS: BASOPHILS % (MANUAL) 0 % (0.0-2.0); EOSINOPHILS % (MANUAL) 0 % (0-4); LYMPHOCYTES % (MANUAL) 4 % (16-48); MONOCYTES % (MANUAL) 8 % (0-11.0); NEUTROPHILS % (MANUAL) 88 (42-76)
[2023-12-15 05:53] LABS: ANISOCYTOSIS 1+; PLATELET ESTIMATE ADEQUATE; STOMATOCYTES 1+
[2023-12-15] MEDS: POTASSIUM CHLORIDE 20 MEQ POWDER PACKET GT SCH (08:54)
[2023-12-15] MEDS ORDERED: DIGOXIN INJ 0.5 MG/2 ML AMPUL IV SCH (09:00)
[2023-12-15] MEDS: AMIODARONE HCL 200 MG TABLET GT SCH (09:50)
[2023-12-15 12:44] LABS: CALCIUM, SERUM 9.3 mg/dL (8.5-10.1); CREATININE 2.7 mg/dL (0.6-1.3); POTASSIUM 3.6 mmol/L (3.5-5.1)
[2023-12-15] MEDS: risperiDONE 1 MG TABLET PO SCH (13:10)
[2023-12-16] VITALS (54 sets, daily range): BP systolic 67–169; BP diastolic 29–104; TEMP 97.4–98.6; O2SAT 88–100
[2023-12-16] MEDS ORDERED: ANESTHESIA TRAY IN PYXIS 1 EA TRAY MC ONE (06:36)
[2023-12-16] MEDS ORDERED: HEPARIN SODIUM, PORCINE 1,000 UNIT/ML VIAL ONE (06:36)
[2023-12-16] MEDS ORDERED: LIDOCAINE 1% INJ 50 ML MDV IJ ONE (06:37)
[2023-12-16] MEDS ORDERED: IOHEXOL 50 ML IV ONE (06:39)
[2023-12-16 07:02] LABS: BASOPHILS % (AUTO) 0.1 % (0.0-2.0); HEMATOCRIT 24 % (33-45); LYMPHOCYTES # (AUTO) 0.6 K/uL (0.8-4.8); LYMPHOCYTES % (AUTO) 4.4 % (20.0-44.0); MEAN CORPUSCULAR HEMOGLOBIN 31 PG (26.0-33.0); MEAN CORPUSCULAR HGB CONC 33 g/dl (31.0-36.0); MEAN CORPUSCULAR VOLUME 93 fL (82-100); MONOCYTES % (AUTO) 7.1 % (2.0-12.0); NEUTROPHILS % (AUTO) 88.4 % (43.0-81.0); PLATELET COUNT (AUTO) 238 K/uL (150-450); RED CELL DISTRIBUTION WIDTH 20.6 % (11.5-15.0); WHITE BLOOD COUNT (AUTO) 13.6 K/uL (4.3-11.0)
[2023-12-16 07:30] LABS: BILIRUBIN,TOTAL 0.4 mg/dL (0.2-1.0); CALCIUM, SERUM 8.8 mg/dL (8.5-10.1); CREATININE 3.4 mg/dL (0.6-1.3); MAGNESIUM 1.9 mg/dL (1.8-2.4); PHOSPHORUS 4.6 mg/dL (2.5-4.9); POTASSIUM 3.1 mmol/L (3.5-5.1); TOTAL PROTEIN, SERUM 6.1 g/dL (6.4-8.2)
[2023-12-16 07:53] LABS: ALBUMIN 1.3 g/dL (3.4-5.0)
[2023-12-16] MEDS ORDERED: FENTANYL PF 100MCG/2ML AMPUL ONE (08:34)
[2023-12-16] MEDS ORDERED: PANTOPRAZOLE 40 MG VIAL IV SCH (11:00)
[2023-12-16] MEDS: PANTOPRAZOLE 40 MG VIAL IV SCH (11:24)
[2023-12-16] MEDS: IV D5/ 0.9% NACL 1,000 ML IV PRN (11:26)
[2023-12-16] MEDS: ALBUMIN 25% 25 GM in PREMIX 1 EA IV PRN (14:28)
[2023-12-17] VITALS (27 sets, daily range): BP systolic 76–120; BP diastolic 49–75; TEMP 97.4–98.4; O2SAT 91–100
[2023-12-17 11:14] LABS: BASOPHILS % (AUTO) 0.1 % (0.0-2.0); EOSINOPHILS # (AUTO) 0.1 K/uL (0.0-0.7); EOSINOPHILS % (AUTO) 0.6 % (0.0-6.0); HEMATOCRIT 26 % (33-45); HEMOGLOBIN 8.2 g/dL (11.5-14.8); LYMPHOCYTES # (AUTO) 0.9 K/uL (0.8-4.8); LYMPHOCYTES % (AUTO) 7.6 % (20.0-44.0); MEAN CORPUSCULAR HEMOGLOBIN 30 PG (26.0-33.0); MEAN CORPUSCULAR HGB CONC 32 g/dl (31.0-36.0); MEAN CORPUSCULAR VOLUME 95 fL (82-100); MONOCYTES # (AUTO) 0.9 K/uL (0.1-1.30); MONOCYTES % (AUTO) 7.6 % (2.0-12.0); NEUTROPHILS # (AUTO) 9.9 K/uL (1.8-8.9); NEUTROPHILS % (AUTO) 84.1 % (43.0-81.0); PLATELET COUNT (AUTO) 232 K/uL (150-450); RED BLOOD CELL COUNT(AUTO) 2.71 MIL/uL (4.0-5.2); RED CELL DISTRIBUTION WIDTH 20.5 % (11.5-15.0); WHITE BLOOD COUNT (AUTO) 11.7 K/uL (4.3-11.0)
[2023-12-17 11:19] LABS: CALCIUM, SERUM 8.3 mg/dL (8.5-10.1); CREATININE 2.7 mg/dL (0.6-1.3); POTASSIUM 3.2 mmol/L (3.5-5.1)
[2023-12-17 11:23] LABS: MAGNESIUM 1.8 mg/dL (1.8-2.4); PHOSPHORUS 3.3 mg/dL (2.5-4.9)
[2023-12-17] MEDS: VANCOMYCIN HCL 125 MG/2.5 ML ORAL.SUSP GT SCH (19:10)
[2023-12-17] MEDS: PANTOPRAZOLE 40 MG/PACK PACK GT SCH (21:01)
[2023-12-18] VITALS (27 sets, daily range): BP systolic 77–127; BP diastolic 48–96; TEMP 97.8–98.8; O2SAT 90–98
[2023-12-18] MEDS: diphenhydrAMINE HCL 50 MG/ML VIAL IV PRN (08:44)
[2023-12-18 11:34] LABS: BASOPHILS % (AUTO) 0.2 % (0.0-2.0); EOSINOPHILS # (AUTO) 0.1 K/uL (0.0-0.7); EOSINOPHILS % (AUTO) 0.5 % (0.0-6.0); HEMATOCRIT 26 % (33-45); HEMOGLOBIN 8.2 g/dL (11.5-14.8); LYMPHOCYTES % (AUTO) 8.3 % (20.0-44.0); MEAN CORPUSCULAR HEMOGLOBIN 30 PG (26.0-33.0); MEAN CORPUSCULAR HGB CONC 32 g/dl (31.0-36.0); MEAN CORPUSCULAR VOLUME 95 fL (82-100); MONOCYTES # (AUTO) 0.8 K/uL (0.1-1.30); MONOCYTES % (AUTO) 7.1 % (2.0-12.0); NEUTROPHILS % (AUTO) 83.9 % (43.0-81.0); PLATELET COUNT (AUTO) 230 K/uL (150-450); RED BLOOD CELL COUNT(AUTO) 2.75 MIL/uL (4.0-5.2); RED CELL DISTRIBUTION WIDTH 20.2 % (11.5-15.0); WHITE BLOOD COUNT (AUTO) 11.9 K/uL (4.3-11.0)
[2023-12-18 11:42] LABS: ALBUMIN 1.4 g/dL (3.4-5.0)
[2023-12-18 11:56] LABS: CALCIUM, SERUM 7.9 mg/dL (8.5-10.1); CREATININE 2.9 mg/dL (0.6-1.3)
[2023-12-18 16:41] LABS: ANISOCYTOSIS 1+; EOSINOPHILS % (MANUAL) 2 % (0-4); LYMPHOCYTES % (MANUAL) 6 % (16-48); MONOCYTES % (MANUAL) 3 % (0-11.0); NEUTROPHILS % (MANUAL) 89 (42-76); PLATELET ESTIMATE ADEQUATE
[2023-12-18 16:42] LABS: OVALOCYTES 1+; ROULEAUX 1+
[2023-12-19] VITALS (39 sets, daily range): BP systolic 74–116; BP diastolic 30–74; TEMP 97.5–98; O2SAT 89–98
[2023-12-19 04:32] LABS: BASOPHILS # (AUTO) 0.1 K/uL (0.0-0.2); BASOPHILS % (AUTO) 0.8 % (0.0-2.0); EOSINOPHILS % (AUTO) 0.2 % (0.0-6.0); HEMATOCRIT 26 % (33-45); HEMOGLOBIN 8.3 g/dL (11.5-14.8); LYMPHOCYTES # (AUTO) 0.9 K/uL (0.8-4.8); LYMPHOCYTES % (AUTO) 8.4 % (20.0-44.0); MEAN CORPUSCULAR HEMOGLOBIN 30 PG (26.0-33.0); MEAN CORPUSCULAR HGB CONC 33 g/dl (31.0-36.0); MEAN CORPUSCULAR VOLUME 94 fL (82-100); MONOCYTES # (AUTO) 0.7 K/uL (0.1-1.30); MONOCYTES % (AUTO) 6.9 % (2.0-12.0); NEUTROPHILS # (AUTO) 8.9 K/uL (1.8-8.9); NEUTROPHILS % (AUTO) 83.7 % (43.0-81.0); PLATELET COUNT (AUTO) 226 K/uL (150-450); RED BLOOD CELL COUNT(AUTO) 2.73 MIL/uL (4.0-5.2); RED CELL DISTRIBUTION WIDTH 20.3 % (11.5-15.0); WHITE BLOOD COUNT (AUTO) 10.6 K/uL (4.3-11.0)
[2023-12-19 04:47] LABS: CALCIUM, SERUM 7.7 mg/dL (8.5-10.1); CREATININE 2.1 mg/dL (0.6-1.3)
[2023-12-19 04:52] LABS: POTASSIUM 2.6 mmol/L (3.5-5.1)
[2023-12-19] MEDS: POTASSIUM CL. PREMIX PERIPHER. 50 ML IV SCH ×2 (05:41→15:19)
[2023-12-19] MEDS: IV NS 0.9% 250 ML IV PRN (06:53)
[2023-12-19] MEDS ORDERED: POTASSIUM CL. PREMIX PERIPHER. 50 ML IV SCH (09:00)
[2023-12-19] MEDS: risperiDONE 1 MG TABLET GT SCH (13:22)
[2023-12-19] MEDS: diphenhydrAMINE HCL ELIX 25 MG/10 ML UDC GT PRN (21:49)
[2023-12-20] VITALS (27 sets, daily range): BP systolic 82–130; BP diastolic 52–80; TEMP 97.6–98.4; O2SAT 94–100
[2023-12-20] MEDS: IV D5/ 0.9% NACL 1,000 ML IV PRN (04:11)
[2023-12-20 04:48] LABS: BASOPHILS # (AUTO) 0.1 K/uL (0.0-0.2); BASOPHILS % (AUTO) 0.5 % (0.0-2.0); EOSINOPHILS # (AUTO) 0.1 K/uL (0.0-0.7); EOSINOPHILS % (AUTO) 0.9 % (0.0-6.0); HEMATOCRIT 25 % (33-45); HEMOGLOBIN 8.2 g/dL (11.5-14.8); LYMPHOCYTES # (AUTO) 1.5 K/uL (0.8-4.8); LYMPHOCYTES % (AUTO) 12.3 % (20.0-44.0); MEAN CORPUSCULAR HEMOGLOBIN 30 PG (26.0-33.0); MEAN CORPUSCULAR HGB CONC 32 g/dl (31.0-36.0); MEAN CORPUSCULAR VOLUME 94 fL (82-100); MONOCYTES # (AUTO) 0.9 K/uL (0.1-1.30); MONOCYTES % (AUTO) 7.5 % (2.0-12.0); NEUTROPHILS # (AUTO) 9.5 K/uL (1.8-8.9); NEUTROPHILS % (AUTO) 78.8 % (43.0-81.0); PLATELET COUNT (AUTO) 227 K/uL (150-450); RED BLOOD CELL COUNT(AUTO) 2.69 MIL/uL (4.0-5.2); RED CELL DISTRIBUTION WIDTH 19.4 % (11.5-15.0)
[2023-12-20 05:09] LABS: CALCIUM, SERUM 7.3 mg/dL (8.5-10.1); CREATININE 2.4 mg/dL (0.6-1.3); POTASSIUM 3.1 mmol/L (3.5-5.1)
[2023-12-20] MEDS ORDERED: POTASSIUM CL. PREMIX PERIPHER. 50 ML IV SCH (08:00)
[2023-12-20] MEDS: POTASSIUM CHLORIDE 20 MEQ POWDER PACKET GT ONE (08:29)
[2023-12-20 08:31] LABS: ABG BASE EXCESS -4.4 mmol/L; ABG OXYGEN SATURATION 94.2 % (92.0-98.5); ABG PCO2 33.4 mmHg (35.0-45.0); ABG PH 7.393 (7.350-7.450); ABG PO2 73.3 mmHg (75.0-100.0); ABG TOTAL HEMOGLOBIN 9.6 G/dL (12.0-16.0); AaDO2 101.4 mmHg; COHb 0.5 % (0.5-1.5); MetHb 0.2 % (0.0-1.5); O2Hb 93.5 % (94.0-97.0); SITE, ABG Right Radial; VENT MODE, BG AC 15 550 30%
[2023-12-20] MEDS: ERYTHROMYCIN ETHYLSUCCINATE 200 MG/5 ML SUSPENSION GT SCH (13:05)
[2023-12-21] VITALS (34 sets, daily range): BP systolic 78–135; BP diastolic 47–78; TEMP 97.5–98.6; O2SAT 85–100
[2023-12-21 05:01] LABS: BASOPHILS % (AUTO) 0.3 % (0.0-2.0); EOSINOPHILS # (AUTO) 0.1 K/uL (0.0-0.7); EOSINOPHILS % (AUTO) 0.6 % (0.0-6.0); HEMATOCRIT 24 % (33-45); HEMOGLOBIN 7.9 g/dL (11.5-14.8); LYMPHOCYTES # (AUTO) 1.4 K/uL (0.8-4.8); LYMPHOCYTES % (AUTO) 13.4 % (20.0-44.0); MEAN CORPUSCULAR HEMOGLOBIN 31 PG (26.0-33.0); MEAN CORPUSCULAR HGB CONC 33 g/dl (31.0-36.0); MEAN CORPUSCULAR VOLUME 95 fL (82-100); MONOCYTES # (AUTO) 0.9 K/uL (0.1-1.30); MONOCYTES % (AUTO) 8.3 % (2.0-12.0); NEUTROPHILS # (AUTO) 8.1 K/uL (1.8-8.9); NEUTROPHILS % (AUTO) 77.4 % (43.0-81.0); PLATELET COUNT (AUTO) 224 K/uL (150-450); RED BLOOD CELL COUNT(AUTO) 2.57 MIL/uL (4.0-5.2); WHITE BLOOD COUNT (AUTO) 10.5 K/uL (4.3-11.0)
[2023-12-22] VITALS (39 sets, daily range): BP systolic 85–162; BP diastolic 46–86; TEMP 97.5–98.6; O2SAT 93–100
[2023-12-22 05:03] LABS: BASOPHILS % (AUTO) 0.4 % (0.0-2.0); EOSINOPHILS # (AUTO) 0.1 K/uL (0.0-0.7); EOSINOPHILS % (AUTO) 1.1 % (0.0-6.0); HEMATOCRIT 27 % (33-45); HEMOGLOBIN 8.9 g/dL (11.5-14.8); LYMPHOCYTES # (AUTO) 1.4 K/uL (0.8-4.8); MEAN CORPUSCULAR HEMOGLOBIN 31 PG (26.0-33.0); MEAN CORPUSCULAR HGB CONC 33 g/dl (31.0-36.0); MEAN CORPUSCULAR VOLUME 95 fL (82-100); MONOCYTES # (AUTO) 0.7 K/uL (0.1-1.30); MONOCYTES % (AUTO) 7.6 % (2.0-12.0); NEUTROPHILS # (AUTO) 7.5 K/uL (1.8-8.9); NEUTROPHILS % (AUTO) 76.9 % (43.0-81.0); PLATELET COUNT (AUTO) 267 K/uL (150-450); RED BLOOD CELL COUNT(AUTO) 2.85 MIL/uL (4.0-5.2); WHITE BLOOD COUNT (AUTO) 9.7 K/uL (4.3-11.0)
[2023-12-22 05:08] LABS: BILIRUBIN,TOTAL 0.3 mg/dL (0.2-1.0); CALCIUM, SERUM 7.3 mg/dL (8.5-10.1); MAGNESIUM 1.4 mg/dL (1.8-2.4); PHOSPHORUS 3.7 mg/dL (2.5-4.9); POTASSIUM 3.3 mmol/L (3.5-5.1); TOTAL PROTEIN, SERUM 6.2 g/dL (6.4-8.2)
[2023-12-22 05:10] LABS: ALBUMIN 1.4 g/dL (3.4-5.0)
[2023-12-22] MEDS ORDERED: TPN/PPN PER PHARMACY IV PRN (09:00)
[2023-12-22] MEDS: POTASSIUM CL. PREMIX PERIPHER. 50 ML IV SCH (10:23)
[2023-12-22] MEDS: Magnesium 1GM/D5W 100ML PREMIX 100 ML IV SCH (10:23)
[2023-12-22] MEDS ORDERED: TPN/PPN PER PHARMACY XX PRN (11:30)
[2023-12-22] MEDS: PPN BAG #1 IV SCH (12:21)
[2023-12-23] VITALS (39 sets, daily range): BP systolic 91–137; BP diastolic 46–90; TEMP 98.2–98.4; O2SAT 91–100
[2023-12-23 05:21] LABS: CALCIUM, SERUM 6.9 mg/dL (8.5-10.1); CREATININE 1.9 mg/dL (0.6-1.3); MAGNESIUM 1.7 mg/dL (1.8-2.4); PHOSPHORUS 3.6 mg/dL (2.5-4.9); POTASSIUM 3.1 mmol/L (3.5-5.1)
[2023-12-23 07:48] LABS: BASOPHILS # (AUTO) 0.1 K/uL (0.0-0.2); BASOPHILS % (AUTO) 0.4 % (0.0-2.0); EOSINOPHILS # (AUTO) 0.1 K/uL (0.0-0.7); EOSINOPHILS % (AUTO) 0.6 % (0.0-6.0); HEMATOCRIT 30 % (33-45); HEMOGLOBIN 9.3 g/dL (11.5-14.8); LYMPHOCYTES # (AUTO) 1.3 K/uL (0.8-4.8); LYMPHOCYTES % (AUTO) 9.7 % (20.0-44.0); MEAN CORPUSCULAR HEMOGLOBIN 30 PG (26.0-33.0); MEAN CORPUSCULAR HGB CONC 31 g/dl (31.0-36.0); MEAN CORPUSCULAR VOLUME 96 fL (82-100); MONOCYTES % (AUTO) 7.9 % (2.0-12.0); NEUTROPHILS # (AUTO) 10.5 K/uL (1.8-8.9); NEUTROPHILS % (AUTO) 81.4 % (43.0-81.0); PLATELET COUNT (AUTO) 283 K/uL (150-450); RED BLOOD CELL COUNT(AUTO) 3.09 MIL/uL (4.0-5.2); RED CELL DISTRIBUTION WIDTH 18.7 % (11.5-15.0); WHITE BLOOD COUNT (AUTO) 12.9 K/uL (4.3-11.0)
[2023-12-23] MEDS: Magnesium 1GM/D5W 100ML PREMIX 100 ML IV SCH (08:27)
[2023-12-23] MEDS: POTASSIUM CL. PREMIX PERIPHER. 50 ML IV SCH (08:27)
[2023-12-23] MEDS: PPN BAG #2 IV SCH (14:04)
[2023-12-24] VITALS (30 sets, daily range): BP systolic 71–131; BP diastolic 45–93; TEMP 98.2–99.2; O2SAT 93–100
[2023-12-24 04:53] LABS: BASOPHILS % (AUTO) 0.3 % (0.0-2.0); EOSINOPHILS # (AUTO) 0.1 K/uL (0.0-0.7); EOSINOPHILS % (AUTO) 0.6 % (0.0-6.0); HEMATOCRIT 26 % (33-45); HEMOGLOBIN 8.5 g/dL (11.5-14.8); LYMPHOCYTES # (AUTO) 0.6 K/uL (0.8-4.8); LYMPHOCYTES % (AUTO) 5.7 % (20.0-44.0); MEAN CORPUSCULAR HEMOGLOBIN 31 PG (26.0-33.0); MEAN CORPUSCULAR HGB CONC 33 g/dl (31.0-36.0); MEAN CORPUSCULAR VOLUME 93 fL (82-100); MONOCYTES # (AUTO) 0.8 K/uL (0.1-1.30); MONOCYTES % (AUTO) 8.2 % (2.0-12.0); NEUTROPHILS # (AUTO) 8.6 K/uL (1.8-8.9); NEUTROPHILS % (AUTO) 85.2 % (43.0-81.0); PLATELET COUNT (AUTO) 227 K/uL (150-450); RED BLOOD CELL COUNT(AUTO) 2.77 MIL/uL (4.0-5.2); RED CELL DISTRIBUTION WIDTH 18.1 % (11.5-15.0); WHITE BLOOD COUNT (AUTO) 10.1 K/uL (4.3-11.0)
[2023-12-24 05:10] LABS: CALCIUM, SERUM 6.8 mg/dL (8.5-10.1); CREATININE 1.4 mg/dL (0.6-1.3); MAGNESIUM 1.6 mg/dL (1.8-2.4); POTASSIUM 3.2 mmol/L (3.5-5.1)
[2023-12-24] MEDS ORDERED: POTASSIUM PHOSPHATE MM 7.5 MMOL in IV NS 0.9% 100 ML IV SCH (08:00)
[2023-12-24] MEDS: Magnesium 1GM/D5W 100ML PREMIX 100 ML IV SCH (08:15)
[2023-12-24] MEDS: POTASSIUM PHOSPHATE MM 7.5 MMOL in IV NS 0.9% 100 ML IV SCH (10:16)
[2023-12-24] MEDS: PPN BAG #3 IV SCH (12:41)
[2023-12-24] MEDS ORDERED: POTASSIUM CL. PREMIX PERIPHER. 50 ML IV SCH (14:00)
[2023-12-24] MEDS ORDERED: DIATR MEGLU/DIATRIZOATE SODIUM 120 ML BOTTLE (GASTROGRAPHIN) ONE (14:37)
[2023-12-25] VITALS (21 sets, daily range): BP systolic 74–141; BP diastolic 40–117; TEMP 97.7–99; O2SAT 94–100
[2023-12-25 03:45] LABS: BASOPHILS % (AUTO) 0.3 % (0.0-2.0); EOSINOPHILS # (AUTO) 0.1 K/uL (0.0-0.7); EOSINOPHILS % (AUTO) 0.9 % (0.0-6.0); HEMATOCRIT 25 % (33-45); HEMOGLOBIN 8.1 g/dL (11.5-14.8); LYMPHOCYTES # (AUTO) 0.8 K/uL (0.8-4.8); LYMPHOCYTES % (AUTO) 10.4 % (20.0-44.0); MEAN CORPUSCULAR HEMOGLOBIN 31 PG (26.0-33.0); MEAN CORPUSCULAR HGB CONC 33 g/dl (31.0-36.0); MEAN CORPUSCULAR VOLUME 93 fL (82-100); MONOCYTES # (AUTO) 0.7 K/uL (0.1-1.30); MONOCYTES % (AUTO) 10.1 % (2.0-12.0); NEUTROPHILS # (AUTO) 5.8 K/uL (1.8-8.9); NEUTROPHILS % (AUTO) 78.3 % (43.0-81.0); PLATELET COUNT (AUTO) 200 K/uL (150-450); RED BLOOD CELL COUNT(AUTO) 2.63 MIL/uL (4.0-5.2); WHITE BLOOD COUNT (AUTO) 7.4 K/uL (4.3-11.0)
[2023-12-25 04:03] LABS: CALCIUM, SERUM 6.6 mg/dL (8.5-10.1); CREATININE 1.1 mg/dL (0.6-1.3); MAGNESIUM 1.7 mg/dL (1.8-2.4); PHOSPHORUS 1.8 mg/dL (2.5-4.9); POTASSIUM 2.9 mmol/L (3.5-5.1)
[2023-12-25] MEDS ORDERED: MORPHINE SULFATE INJ 2 MG/ML DISP.SYRIN IV PRN (09:00)
[2023-12-25] MEDS: PPN BAG #4 IV SCH (12:04)
[2023-12-25] MEDS: POTASSIUM CHLORIDE 20 MEQ TAB.PRT.SR PO ONE (12:40)
[2023-12-26] VITALS (9 sets, daily range): BP systolic 115–132; BP diastolic 60–81; TEMP 97.7–98.6; O2SAT 95–100
[2023-12-26 07:28] LABS: BASOPHILS % (AUTO) 0.3 % (0.0-2.0); EOSINOPHILS # (AUTO) 0.1 K/uL (0.0-0.7); EOSINOPHILS % (AUTO) 1.2 % (0.0-6.0); HEMATOCRIT 24 % (33-45); HEMOGLOBIN 7.9 g/dL (11.5-14.8); LYMPHOCYTES # (AUTO) 1.4 K/uL (0.8-4.8); LYMPHOCYTES % (AUTO) 15.9 % (20.0-44.0); MEAN CORPUSCULAR HEMOGLOBIN 31 PG (26.0-33.0); MEAN CORPUSCULAR HGB CONC 33 g/dl (31.0-36.0); MEAN CORPUSCULAR VOLUME 93 fL (82-100); MONOCYTES # (AUTO) 0.8 K/uL (0.1-1.30); MONOCYTES % (AUTO) 9.6 % (2.0-12.0); NEUTROPHILS # (AUTO) 6.3 K/uL (1.8-8.9); PLATELET COUNT (AUTO) 244 K/uL (150-450); RED CELL DISTRIBUTION WIDTH 17.1 % (11.5-15.0); WHITE BLOOD COUNT (AUTO) 8.6 K/uL (4.3-11.0)
[2023-12-26 07:44] LABS: CREATININE 1.1 mg/dL (0.6-1.3); MAGNESIUM 1.3 mg/dL (1.8-2.4); PHOSPHORUS 1.3 mg/dL (2.5-4.9)
[2023-12-26 07:48] LABS: POTASSIUM 2.5 mmol/L (3.5-5.1)
[2023-12-26] MEDS: Magnesium 1GM/D5W 100ML PREMIX 100 ML IV SCH ×2 (08:58→20:40)
[2023-12-26] MEDS: POTASSIUM PHOSPHATE MM 7.5 MMOL in IV NS 0.9% 100 ML IV SCH (09:40)
[2023-12-26] MEDS: TPN BAG #1 IV SCH (12:02)
[2023-12-26 17:16] LABS: CALCIUM, SERUM 6.6 mg/dL (8.5-10.1); CREATININE 1.1 mg/dL (0.6-1.3); MAGNESIUM 1.6 mg/dL (1.8-2.4); PHOSPHORUS 2.2 mg/dL (2.5-4.9)
[2023-12-26 17:18] LABS: POTASSIUM 2.6 mmol/L (3.5-5.1)
[2023-12-26] MEDS: POTASSIUM CL. PREMIX PERIPHER. 50 ML IV SCH (20:47)
[2023-12-26] MEDS ORDERED: Magnesium 1GM/D5W 100ML PREMIX 100 ML IV SCH (21:00)
[2023-12-26] MEDS: NS 0.9% IV SCH (21:02)
[2023-12-26] MEDS: POTASSIUM PHOSPHATE MM IV SCH (21:02)
[2023-12-27] VITALS: BP 106/74; TEMP 98.2; O2SAT 100
[2023-12-27] MEDS: TPN BAG #2 IV SCH (01:57)
[2023-12-27 04:00] VITALS: BP 120/70; TEMP 98; O2SAT 100
[2023-12-27 07:22] LABS: BASOPHILS % (AUTO) 0.2 % (0.0-2.0); EOSINOPHILS # (AUTO) 0.1 K/uL (0.0-0.7); EOSINOPHILS % (AUTO) 0.9 % (0.0-6.0); HEMATOCRIT 26 % (33-45); HEMOGLOBIN 8.5 g/dL (11.5-14.8); LYMPHOCYTES # (AUTO) 0.9 K/uL (0.8-4.8); LYMPHOCYTES % (AUTO) 8.2 % (20.0-44.0); MEAN CORPUSCULAR HEMOGLOBIN 31 PG (26.0-33.0); MEAN CORPUSCULAR HGB CONC 33 g/dl (31.0-36.0); MEAN CORPUSCULAR VOLUME 92 fL (82-100); MONOCYTES # (AUTO) 0.7 K/uL (0.1-1.30); MONOCYTES % (AUTO) 7.2 % (2.0-12.0); NEUTROPHILS # (AUTO) 8.7 K/uL (1.8-8.9); NEUTROPHILS % (AUTO) 83.5 % (43.0-81.0); PLATELET COUNT (AUTO) 234 K/uL (150-450); RED BLOOD CELL COUNT(AUTO) 2.77 MIL/uL (4.0-5.2); RED CELL DISTRIBUTION WIDTH 17.4 % (11.5-15.0); WHITE BLOOD COUNT (AUTO) 10.4 K/uL (4.3-11.0)
[2023-12-27 07:43] LABS: ALBUMIN 1.7 g/dL (3.4-5.0); BILIRUBIN,TOTAL 0.2 mg/dL (0.2-1.0); CALCIUM, SERUM 6.7 mg/dL (8.5-10.1); CREATININE 1.1 mg/dL (0.6-1.3); MAGNESIUM 1.6 mg/dL (1.8-2.4); PHOSPHORUS 2.1 mg/dL (2.5-4.9); TOTAL PROTEIN, SERUM 5.8 g/dL (6.4-8.2)
[2023-12-27 07:59] LABS: POTASSIUM 2.6 mmol/L (3.5-5.1)
[2023-12-27 08:00] VITALS: BP 120/70; TEMP 98.9; O2SAT 100
[2023-12-27] MEDS ORDERED: Magnesium 1GM/D5W 100ML PREMIX 100 ML IV SCH ×2 (09:00→20:00)
[2023-12-27] MEDS: POTASSIUM CL. PREMIX PERIPHER. 50 ML IV SCH (09:08)
[2023-12-27] MEDS: Magnesium 1GM/D5W 100ML PREMIX 100 ML IV SCH (09:09)
[2023-12-27] MEDS: POTASSIUM PHOSPHATE MM 7.5 MMOL in IV NS 0.9% 100 ML IV SCH ×2 (09:52→18:53)
[2023-12-27 12:00] VITALS: BP 117/61; TEMP 96.7; O2SAT 100
[2023-12-27] MEDS: TPN BAG #3 IV SCH (14:29)
[2023-12-27 16:00] VITALS: BP 113/76; TEMP 97.7; O2SAT 100
[2023-12-27] MEDS ORDERED: TPN BAG #3 IV SCH (16:47)
[2023-12-27 17:20] LABS: CALCIUM, SERUM 6.8 mg/dL (8.5-10.1); CREATININE 1.2 mg/dL (0.6-1.3); MAGNESIUM 1.9 mg/dL (1.8-2.4); PHOSPHORUS 2.3 mg/dL (2.5-4.9)
[2023-12-27 17:25] LABS: POTASSIUM 2.6 mmol/L (3.5-5.1)
[2023-12-27 20:00] VITALS: BP 106/69; TEMP 96.8; O2SAT 100
[2023-12-28] VITALS (8 sets, daily range): BP systolic 106–120; BP diastolic 51–80; TEMP 97.5–98.6; O2SAT 96–100
[2023-12-28] MEDS: TPN BAG #4 IV SCH (05:30)
[2023-12-28 07:15] LABS: BASOPHILS % (AUTO) 0.1 % (0.0-2.0); EOSINOPHILS # (AUTO) 0.1 K/uL (0.0-0.7); EOSINOPHILS % (AUTO) 0.8 % (0.0-6.0); HEMATOCRIT 27 % (33-45); HEMOGLOBIN 8.8 g/dL (11.5-14.8); LYMPHOCYTES # (AUTO) 0.8 K/uL (0.8-4.8); LYMPHOCYTES % (AUTO) 6.7 % (20.0-44.0); MEAN CORPUSCULAR HEMOGLOBIN 30 PG (26.0-33.0); MEAN CORPUSCULAR HGB CONC 33 g/dl (31.0-36.0); MEAN CORPUSCULAR VOLUME 92 fL (82-100); MONOCYTES # (AUTO) 0.9 K/uL (0.1-1.30); MONOCYTES % (AUTO) 7.8 % (2.0-12.0); NEUTROPHILS # (AUTO) 10.2 K/uL (1.8-8.9); NEUTROPHILS % (AUTO) 84.6 % (43.0-81.0); PLATELET COUNT (AUTO) 248 K/uL (150-450); RED BLOOD CELL COUNT(AUTO) 2.92 MIL/uL (4.0-5.2); RED CELL DISTRIBUTION WIDTH 17.4 % (11.5-15.0)
[2023-12-28] MEDS ORDERED: TPN BAG #4 IV SCH (07:15)
[2023-12-28 07:44] LABS: CALCIUM, SERUM 6.4 mg/dL (8.5-10.1); CREATININE 1.1 mg/dL (0.6-1.3); MAGNESIUM 1.7 mg/dL (1.8-2.4); PHOSPHORUS 2.1 mg/dL (2.5-4.9)
[2023-12-28 08:23] LABS: POTASSIUM 2.5 mmol/L (3.5-5.1)
[2023-12-28] MEDS: Magnesium 1GM/D5W 100ML PREMIX 100 ML IV SCH (09:05)
[2023-12-28] MEDS: Sodium Phosphate 15 MMOL in IV NS 0.9% 245 ML IV SCH (10:16)
[2023-12-28] MEDS: TPN BAG #5 IV SCH (18:41)
[2023-12-28] MEDS: POTASSIUM CL. PREMIX PERIPHER. 50 ML IV SCH (21:01)
[2023-12-29] VITALS: BP 128/53; TEMP 98.8; O2SAT 96
[2023-12-29 04:00] VITALS: BP 125/55; TEMP 98.7; O2SAT 95
[2023-12-29 08:00] VITALS: BP 114/72; TEMP 97.4; O2SAT 95
[2023-12-29 09:10] LABS: BASOPHILS % (AUTO) 0.3 % (0.0-2.0); EOSINOPHILS % (AUTO) 0.3 % (0.0-6.0); HEMATOCRIT 24 % (33-45); HEMOGLOBIN 7.8 g/dL (11.5-14.8); LYMPHOCYTES # (AUTO) 0.8 K/uL (0.8-4.8); LYMPHOCYTES % (AUTO) 6.2 % (20.0-44.0); MEAN CORPUSCULAR HEMOGLOBIN 30 PG (26.0-33.0); MEAN CORPUSCULAR HGB CONC 32 g/dl (31.0-36.0); MEAN CORPUSCULAR VOLUME 92 fL (82-100); MONOCYTES # (AUTO) 1.1 K/uL (0.1-1.30); MONOCYTES % (AUTO) 8.7 % (2.0-12.0); NEUTROPHILS # (AUTO) 10.3 K/uL (1.8-8.9); NEUTROPHILS % (AUTO) 84.5 % (43.0-81.0); PLATELET COUNT (AUTO) 242 K/uL (150-450); RED BLOOD CELL COUNT(AUTO) 2.63 MIL/uL (4.0-5.2); WHITE BLOOD COUNT (AUTO) 12.2 K/uL (4.3-11.0)
[2023-12-29 09:26] LABS: CALCIUM, SERUM 6.6 mg/dL (8.5-10.1); CREATININE 1.2 mg/dL (0.6-1.3); MAGNESIUM 1.6 mg/dL (1.8-2.4); POTASSIUM 2.9 mmol/L (3.5-5.1)
[2023-12-29] MEDS: POTASSIUM CL. PREMIX PERIPHER. 50 ML IV SCH (10:32)
[2023-12-29] MEDS: TPN BAG #6 IV SCH (10:41)
[2023-12-29 12:00] VITALS: BP 119/70; TEMP 97.4; O2SAT 96
[2023-12-29] MEDS: POTASSIUM PHOSPHATE MM 15 MMOL in IV NS 0.9% 250 ML IV SCH (13:49)
[2023-12-29 16:00] VITALS: BP 109/79; TEMP 97.4; O2SAT 98
[2023-12-29] MEDS ORDERED: POTASSIUM PHOSPHATE MM 15 MMOL in IV NS 0.9% 250 ML IV SCH (18:00)
[2023-12-29 20:00] VITALS: BP 117/63; TEMP 98.2; O2SAT 100
[2023-12-29] MEDS: MORPHINE SULFATE INJ 2 MG/ML DISP.SYRIN IV PRN (20:42)
[2023-12-29 21:18] LABS: CALCIUM, SERUM 6.5 mg/dL (8.5-10.1); CREATININE 1.3 mg/dL (0.6-1.3); PHOSPHORUS 2.6 mg/dL (2.5-4.9); POTASSIUM 3.7 mmol/L (3.5-5.1)
[2023-12-29] MEDS: Magnesium 1GM/D5W 100ML PREMIX 100 ML IV SCH (22:22)
[2023-12-30] VITALS: BP 121/65; TEMP 98; O2SAT 100
[2023-12-30] MEDS: TPN BAG #7 IV SCH (00:29)
[2023-12-30] MEDS: ACETAMINOPHEN 650 MG/SUPP.RECT RC PRN (01:56)
[2023-12-30 04:00] VITALS: BP 110/68; TEMP 98.4; O2SAT 100
[2023-12-30] MEDS: BETHANECHOL CHLORIDE (25 MG) 25 MG TABLET GT SCH (05:34)
[2023-12-30 07:00] LABS: BASOPHILS # (AUTO) 0.1 K/uL (0.0-0.2); BASOPHILS % (AUTO) 0.3 % (0.0-2.0); HEMATOCRIT 25 % (33-45); HEMOGLOBIN 8.1 g/dL (11.5-14.8); LYMPHOCYTES # (AUTO) 0.2 K/uL (0.8-4.8); LYMPHOCYTES % (AUTO) 0.7 % (20.0-44.0); MEAN CORPUSCULAR HEMOGLOBIN 30 PG (26.0-33.0); MEAN CORPUSCULAR HGB CONC 33 g/dl (31.0-36.0); MEAN CORPUSCULAR VOLUME 93 fL (82-100); MONOCYTES # (AUTO) 1.4 K/uL (0.1-1.30); MONOCYTES % (AUTO) 6.6 % (2.0-12.0); NEUTROPHILS # (AUTO) 19.4 K/uL (1.8-8.9); NEUTROPHILS % (AUTO) 92.4 % (43.0-81.0); PLATELET COUNT (AUTO) 228 K/uL (150-450); RED BLOOD CELL COUNT(AUTO) 2.68 MIL/uL (4.0-5.2); RED CELL DISTRIBUTION WIDTH 17.5 % (11.5-15.0)
[2023-12-30 07:28] LABS: CALCIUM, SERUM 6.5 mg/dL (8.5-10.1); CREATININE 1.1 mg/dL (0.6-1.3); MAGNESIUM 1.7 mg/dL (1.8-2.4); PHOSPHORUS 1.6 mg/dL (2.5-4.9); POTASSIUM 3.3 mmol/L (3.5-5.1)
[2023-12-30 08:00] VITALS: BP 92/49; TEMP 98.6; O2SAT 95
[2023-12-30] MEDS: SERTRALINE HCL 50 MG TABLET GT SCH (08:47)
[2023-12-30] MEDS: Magnesium 1GM/D5W 100ML PREMIX 100 ML IV SCH (08:54)
[2023-12-30] MEDS: POTASSIUM CL. PREMIX PERIPHER. 50 ML IV SCH (08:54)
[2023-12-30] MEDS: POTASSIUM PHOSPHATE MM 7.5 MMOL in IV NS 0.9% 100 ML IV SCH (09:50)
[2023-12-30 12:00] VITALS: BP 108/61; TEMP 98.5; O2SAT 92
[2023-12-30] MEDS: TPN BAG #8 IV SCH (12:28)
[2023-12-30 16:00] VITALS: BP 92/48; TEMP 99; O2SAT 98
[2023-12-30 20:00] VITALS: BP 108/55; TEMP 97.5; O2SAT 97
[2023-12-30] MEDS: CEFEPIME 1 GM in IV D5W 50 ML IV SCH (21:06)
[2023-12-30] MEDS: VANCOMYCIN HCL 1.25 GM in IV D5W 250 ML IV ONE (22:01)
[2023-12-31] VITALS (8 sets, daily range): BP systolic 90–127; BP diastolic 47–75; TEMP 97.5–98.4; O2SAT 96–99
[2023-12-31] MEDS: TPN BAG #9 IV SCH (01:21)
[2023-12-31] MEDS ORDERED: VANCOMYCIN POST DIALYSIS 500MG IV PRN (06:00)
[2023-12-31 07:31] LABS: BASOPHILS % (AUTO) 0.2 % (0.0-2.0); EOSINOPHILS # (AUTO) 0.1 K/uL (0.0-0.7); EOSINOPHILS % (AUTO) 0.3 % (0.0-6.0); HEMATOCRIT 23 % (33-45); HEMOGLOBIN 7.4 g/dL (11.5-14.8); LYMPHOCYTES # (AUTO) 0.8 K/uL (0.8-4.8); LYMPHOCYTES % (AUTO) 4.9 % (20.0-44.0); MEAN CORPUSCULAR HEMOGLOBIN 31 PG (26.0-33.0); MEAN CORPUSCULAR HGB CONC 33 g/dl (31.0-36.0); MEAN CORPUSCULAR VOLUME 93 fL (82-100); MONOCYTES # (AUTO) 1.2 K/uL (0.1-1.30); MONOCYTES % (AUTO) 7.9 % (2.0-12.0); NEUTROPHILS # (AUTO) 13.4 K/uL (1.8-8.9); NEUTROPHILS % (AUTO) 86.7 % (43.0-81.0); PLATELET COUNT (AUTO) 222 K/uL (150-450); RED BLOOD CELL COUNT(AUTO) 2.44 MIL/uL (4.0-5.2); RED CELL DISTRIBUTION WIDTH 17.8 % (11.5-15.0); WHITE BLOOD COUNT (AUTO) 15.5 K/uL (4.3-11.0)
[2023-12-31 07:35] LABS: D-DIMER 4.24 mg/L(FEU (0.17-0.50); INR 1.02 (0.91-1.10); PROTHROMBIN TIME 10.8 SECS (9.2-11.1)
[2023-12-31 07:36] LABS: LACTIC ACID 0.7 mmol/L (0.4-2.0)
[2023-12-31 07:40] LABS: CALCIUM, SERUM 6.5 mg/dL (8.5-10.1); CREATININE 1.1 mg/dL (0.6-1.3); MAGNESIUM 1.8 mg/dL (1.8-2.4); PHOSPHORUS 2.4 mg/dL (2.5-4.9); POTASSIUM 3.4 mmol/L (3.5-5.1)
[2023-12-31 07:50] LABS: C-REACTIVE PROTEIN 11.9 mg/dL (0.0-0.30)
[2023-12-31] MEDS: VANCOMYCIN 1 GM in IV D5W 250ml IV SCH (07:57)
[2023-12-31] MEDS: CEFEPIME 1 GM in IV D5W 50 ML IV SCH (09:36)
[2023-12-31] MEDS: POTASSIUM PHOSPHATE MM 7.5 MMOL in IV NS 0.9% 100 ML IV SCH (13:52)
[2023-12-31] MEDS: TPN BAG #10 IV SCH (14:42)
[2023-12-31] MEDS ORDERED: TPN BAG #10 IV SCH (15:20)
[2023-12-31] MEDS: Magnesium 1GM/D5W 100ML PREMIX 100 ML IV SCH (16:41)
[2023-12-31] MEDS: POTASSIUM CL. PREMIX PERIPHER. 50 ML IV SCH (20:19)
[2024-01-01] VITALS (8 sets, daily range): BP systolic 93–114; BP diastolic 55–60; TEMP 97.5–97.8; O2SAT 97–99
[2024-01-01 07:54] LABS: CALCIUM, SERUM 6.8 mg/dL (8.5-10.1); CREATININE 1.3 mg/dL (0.6-1.3); MAGNESIUM 1.9 mg/dL (1.8-2.4); PHOSPHORUS 1.8 mg/dL (2.5-4.9); POTASSIUM 3.5 mmol/L (3.5-5.1)
[2024-01-01] MEDS ORDERED: VANCOMYCIN HCL 1.25 GM in IV D5W 250 ML IV SCH (08:00)
[2024-01-01 08:09] LABS: APPEARANCE,URINE TURBID (CLEAR); BILIRUBIN,URINE NEGATIVE (NEGATIVE); BLOOD, URINE 1+ Ery/uL (NEGATIVE); COLOR,URINE YELLOW (YELLOW); KETONES,URINE NEGATIVE (NEGATIVE); LEUKOCYTE ESTERASE ,URINE 3+ (NEGATIVE); NITRITE, URINE NEGATIVE (NEGATIVE); PROTEIN,URINE 2+ mg/dl (NEGATIVE); UGLUCOSE NEGATIVE (NEGATIVE); UROBILINOGEN,URINE 0.2 EU/dL (0.2)
[2024-01-01 09:28] LABS: THYROID STIMULATING HORMONE 5.301 uIU/mL (0.358-3.74)
[2024-01-01 10:46] LABS: WBC,URINE 81-100 /HPF (0-3)
[2024-01-01 10:47] LABS: ADD URINE CULTURE YES; BACTERIA,URINE Few /HPF (None Seen); SQUAMOUS EPITHELIAL CELL,UR Moderate /HPF (None Seen)
[2024-01-01 10:48] LABS: YEAST,URINE Few /HPF (None Seen)
[2024-01-01] MEDS: Sodium Phosphate 15 MMOL in IV NS 0.9% 245 ML IV SCH (11:22)
[2024-01-01] MEDS: TPN BAG #11 IV SCH (18:58)
[2024-01-01] MEDS: POTASSIUM CL. PREMIX PERIPHER. 50 ML IV SCH (21:51)
[2024-01-02] VITALS (8 sets, daily range): BP systolic 93–110; BP diastolic 54–65; TEMP 96.8–98; O2SAT 95–100
[2024-01-02 07:26] LABS: BASOPHILS # (AUTO) 0.1 K/uL (0.0-0.2); BASOPHILS % (AUTO) 0.5 % (0.0-2.0); EOSINOPHILS % (AUTO) 0.2 % (0.0-6.0); HEMATOCRIT 23 % (33-45); HEMOGLOBIN 7.3 g/dL (11.5-14.8); LYMPHOCYTES # (AUTO) 0.2 K/uL (0.8-4.8); LYMPHOCYTES % (AUTO) 1.3 % (20.0-44.0); MEAN CORPUSCULAR HEMOGLOBIN 30 PG (26.0-33.0); MEAN CORPUSCULAR HGB CONC 32 g/dl (31.0-36.0); MEAN CORPUSCULAR VOLUME 93 fL (82-100); MONOCYTES # (AUTO) 0.8 K/uL (0.1-1.30); MONOCYTES % (AUTO) 4.3 % (2.0-12.0); NEUTROPHILS # (AUTO) 17.6 K/uL (1.8-8.9); NEUTROPHILS % (AUTO) 93.7 % (43.0-81.0); PLATELET COUNT (AUTO) 137 K/uL (150-450); RED BLOOD CELL COUNT(AUTO) 2.44 MIL/uL (4.0-5.2); RED CELL DISTRIBUTION WIDTH 17.9 % (11.5-15.0); WHITE BLOOD COUNT (AUTO) 18.8 K/uL (4.3-11.0)
[2024-01-02 07:35] LABS: CALCIUM, SERUM 6.6 mg/dL (8.5-10.1); CREATININE 1.4 mg/dL (0.6-1.3); MAGNESIUM 1.7 mg/dL (1.8-2.4); PHOSPHORUS 1.7 mg/dL (2.5-4.9); POTASSIUM 3.3 mmol/L (3.5-5.1)
[2024-01-02] MEDS ORDERED: VANCOMYCIN HCL 1.25 GM in IV D5W 250 ML IV SCH (08:00)
[2024-01-02] MEDS: Magnesium 1GM/D5W 100ML PREMIX 100 ML IV SCH (08:36)
[2024-01-02] MEDS: POTASSIUM PHOSPHATE MM 15 MMOL in IV NS 0.9% 250 ML IV SCH (08:58)
[2024-01-02 10:46] LABS: ANISOCYTOSIS 1+; BAND % (MANUAL) 14 % (0.0-5.0); LYMPHOCYTES % (MANUAL) 4 % (16-48); MONOCYTES % (MANUAL) 6 % (0-11.0); MYELOCYTES % 1 % (0-0); NEUTROPHILS % (MANUAL) 75 (42-76); PLATELET ESTIMATE DECREASED
[2024-01-02] MEDS: TPN BAG #12 IV SCH (16:11)
[2024-01-02] MEDS: POTASSIUM CL. PREMIX PERIPHER. 50 ML IV SCH (21:59)
[2024-01-03] VITALS: BP 99/63; TEMP 96.9; O2SAT 98
[2024-01-03 04:00] VITALS: BP 94/56; TEMP 97; O2SAT 98
[2024-01-03 08:00] VITALS: BP 97/69; TEMP 96.5; O2SAT 96
[2024-01-03] MEDS ORDERED: VANCOMYCIN 1 GM in IV D5W 250ml IV SCH ×2 (09:00→22:00)
[2024-01-03] MEDS ORDERED: VANCOMYCIN HCL 1.25 GM in IV D5W 250 ML IV SCH (09:00)
[2024-01-03 09:51] LABS: CALCIUM, SERUM 7.1 mg/dL (8.5-10.1); CREATININE 1.7 mg/dL (0.6-1.3); MAGNESIUM 1.8 mg/dL (1.8-2.4); PHOSPHORUS 1.9 mg/dL (2.5-4.9); POTASSIUM 3.6 mmol/L (3.5-5.1)
[2024-01-03] MEDS ORDERED: IV NS 0.9% 1,000 ML IV SCH (10:30)
[2024-01-03 12:00] VITALS: BP 94/68; TEMP 96.5; O2SAT 98
[2024-01-03] MEDS ORDERED: TPN BAG #13 IV SCH (15:30)
[2024-01-03] MEDS: TPN BAG #13 IV SCH (15:40)
[2024-01-03 16:00] VITALS: BP 127/71; TEMP 97.9; O2SAT 100
[2024-01-03] MEDS: Magnesium 1GM/D5W 100ML PREMIX 100 ML IV SCH (16:08)
[2024-01-03] MEDS: MEROPENEM 1 G in IV NS 0.9% 100 ML IV SCH (18:20)
[2024-01-03] MEDS: POTASSIUM PHOSPHATE MM 15 MMOL in IV NS 0.9% 250 ML IV SCH (19:37)
[2024-01-03 20:00] VITALS: BP 101/70; TEMP 98.2; O2SAT 95
[2024-01-03] MEDS ORDERED: MEROPENEM 1 G in IV NS 0.9% 100 ML IV SCH (20:00)
[2024-01-03] MEDS ORDERED: VANCOMYCIN 1 GM in IV D5W 250 ML IV SCH (22:00)
[2024-01-04] VITALS: BP 99/58; TEMP 97; O2SAT 95
[2024-01-04 04:00] VITALS: BP 105/68; TEMP 97.7; O2SAT 95
[2024-01-04 08:00] VITALS: BP 96/54; TEMP 97.8; O2SAT 96
[2024-01-04] MEDS ORDERED: VANCOMYCIN 1 GM in IV D5W 250ml IV SCH (09:00)
[2024-01-04 11:27] LABS: MEAN CORPUSCULAR HEMOGLOBIN 30 PG (26.0-33.0)
[2024-01-04 11:36] LABS: BASOPHILS # (AUTO) 0.1 K/uL (0.0-0.2); BASOPHILS % (AUTO) 0.3 % (0.0-2.0); EOSINOPHILS % (AUTO) 0.1 % (0.0-6.0); HEMATOCRIT 22 % (33-45); HEMOGLOBIN 7.2 g/dL (11.5-14.8); LYMPHOCYTES # (AUTO) 0.3 K/uL (0.8-4.8); LYMPHOCYTES % (AUTO) 1.3 % (20.0-44.0); MEAN CORPUSCULAR HGB CONC 33 g/dl (31.0-36.0); MEAN CORPUSCULAR VOLUME 91 fL (82-100); MONOCYTES % (AUTO) 4.4 % (2.0-12.0); NEUTROPHILS # (AUTO) 20.7 K/uL (1.8-8.9); NEUTROPHILS % (AUTO) 93.9 % (43.0-81.0); PLATELET COUNT (AUTO) 83 K/uL (150-450); RED BLOOD CELL COUNT(AUTO) 2.44 MIL/uL (4.0-5.2); RED CELL DISTRIBUTION WIDTH 18.2 % (11.5-15.0); WHITE BLOOD COUNT (AUTO) 22.1 K/uL (4.3-11.0)
[2024-01-04 11:40] LABS: MAGNESIUM 1.7 mg/dL (1.8-2.4); PHOSPHORUS 1.8 mg/dL (2.5-4.9)
[2024-01-04 11:42] LABS: BILIRUBIN,TOTAL 0.4 mg/dL (0.2-1.0); CALCIUM, SERUM 6.8 mg/dL (8.5-10.1); CREATININE 1.6 mg/dL (0.6-1.3); POTASSIUM 3.4 mmol/L (3.5-5.1); TOTAL PROTEIN, SERUM 5.8 g/dL (6.4-8.2)
[2024-01-04 11:44] LABS: ALBUMIN 1.2 g/dL (3.4-5.0)
[2024-01-04 12:00] VITALS: BP 103/57; TEMP 97.8; O2SAT 96
[2024-01-04] MEDS: Magnesium 1GM/D5W 100ML PREMIX 100 ML IV SCH (13:39)
[2024-01-04 14:11] LABS: LYMPHOCYTES % (MANUAL) 2 % (16-48); MONOCYTES % (MANUAL) 8 % (0-11.0); MYELOCYTES % 1 % (0-0); NEUTROPHILS % (MANUAL) 90 (42-76); PROMYELOCYTES % 1 % (0-0)
[2024-01-04 14:12] LABS: ANISOCYTOSIS 1+; PLATELET ESTIMATE DECREASED
[2024-01-04] MEDS: POTASSIUM PHOSPHATE MM 15 MMOL in IV NS 0.9% 250 ML IV SCH (15:15)
[2024-01-04] MEDS: TPN BAG #14 IV SCH (15:36)
[2024-01-04 16:00] VITALS: BP 92/54; TEMP 98.2; O2SAT 92
[2024-01-04 20:00] VITALS: BP 90/62; TEMP 96.8; O2SAT 94
[2024-01-05] VITALS (44 sets, daily range): BP systolic 79–151; BP diastolic 37–94; TEMP 96.9–98.3; O2SAT 93–100
[2024-01-05] MEDS ORDERED: IV NS 0.9% 1,000 ML IV PRN ×2 (11:00→12:00)
[2024-01-05 11:21] LABS: ABG BASE EXCESS -7.2 mmol/L; ABG OXYGEN SATURATION 96.7 % (92.0-98.5); ABG PCO2 64.6 mmHg (35.0-45.0); ABG PH 7.144 (7.350-7.450); ABG PO2 98.4 mmHg (75.0-100.0); ABG TOTAL HEMOGLOBIN 8.5 G/dL (12.0-16.0); COHb 0.4 % (0.5-1.5); MetHb 0.2 % (0.0-1.5); O2Hb 96.1 % (94.0-97.0); PEEP,BG 0 cm H2O; SITE, ABG Right Radial; VENT MODE, BG AC 100%; VT, ABG 550 mL
[2024-01-05 13:58] LABS: ABG BASE EXCESS -6.2 mmol/L; ABG PCO2 43.1 mmHg (35.0-45.0); ABG PH 7.285 (7.350-7.450); ABG PO2 115.7 mmHg (75.0-100.0); AaDO2 554.2 mmHg; COHb 0.3 % (0.5-1.5); MetHb 0.2 % (0.0-1.5); O2Hb 97.5 % (94.0-97.0); PEEP,BG 0 cm H2O; SITE, ABG Right Radial; VENT MODE, BG AC 100%; VT, ABG 600 mL
[2024-01-05] MEDS: NOREPINEPHRINE 8 MG in IV D5W 242 ML IV PRN (15:24)
[2024-01-05] MEDS: TPN BAG #15 IV SCH (15:56)
[2024-01-05] MEDS ORDERED: DOSE PER PHARMACY MICAFUNGIN 1 EA XX PRN (17:30)
[2024-01-05 19:02] LABS: BASOPHILS # (AUTO) 0.2 K/uL (0.0-0.2); BASOPHILS % (AUTO) 0.7 % (0.0-2.0); EOSINOPHILS # (AUTO) 0.1 K/uL (0.0-0.7); EOSINOPHILS % (AUTO) 0.3 % (0.0-6.0); HEMATOCRIT 24 % (33-45); HEMOGLOBIN 7.8 g/dL (11.5-14.8); LYMPHOCYTES # (AUTO) 0.3 K/uL (0.8-4.8); MEAN CORPUSCULAR HEMOGLOBIN 30 PG (26.0-33.0); MEAN CORPUSCULAR HGB CONC 32 g/dl (31.0-36.0); MEAN CORPUSCULAR VOLUME 91 fL (82-100); MONOCYTES # (AUTO) 0.7 K/uL (0.1-1.30); MONOCYTES % (AUTO) 2.9 % (2.0-12.0); NEUTROPHILS # (AUTO) 24.5 K/uL (1.8-8.9); NEUTROPHILS % (AUTO) 95.1 % (43.0-81.0); PLATELET COUNT (AUTO) 111 K/uL (150-450); RED BLOOD CELL COUNT(AUTO) 2.63 MIL/uL (4.0-5.2); RED CELL DISTRIBUTION WIDTH 17.5 % (11.5-15.0); WHITE BLOOD COUNT (AUTO) 25.8 K/uL (4.3-11.0)
[2024-01-05 19:16] LABS: D-DIMER 3.68 mg/L(FEU (0.17-0.50); INR 1.01 (0.91-1.10); PARTIAL THROMBOPLASTIN TIME 35.9 SEC (24.3-34.3); PROTHROMBIN TIME 10.7 SECS (9.2-11.1)
[2024-01-05 19:34] LABS: MAGNESIUM 1.9 mg/dL (1.8-2.4); PHOSPHORUS 1.2 mg/dL (2.5-4.9)
[2024-01-05 19:36] LABS: ALBUMIN 1.9 g/dL (3.4-5.0); BILIRUBIN,TOTAL 0.6 mg/dL (0.2-1.0); CALCIUM, SERUM 7.3 mg/dL (8.5-10.1); CREATININE 1.2 mg/dL (0.6-1.3); TOTAL PROTEIN, SERUM 6.6 g/dL (6.4-8.2)
[2024-01-05] MEDS: MICAFUNGIN SODIUM 100 MG in IV NS 0.9% 100 ML IV SCH (20:31)
[2024-01-05] MEDS: VANCOMYCIN 1 GM in IV D5W 250 ML IV SCH (21:37)
[2024-01-05] MEDS: INSULIN GLARGINE, 100 UNIT/ML CARTRIDGE SQ SCH (22:43)
[2024-01-06] VITALS (103 sets, daily range): BP systolic 80–149; BP diastolic 41–89; TEMP 95.8–98.4; O2SAT 90–100
[2024-01-06 05:10] LABS: BAND % (MANUAL) 6 % (0.0-5.0); LYMPHOCYTES % (MANUAL) 2 % (16-48); METAMYELOCYTES % 2 % (0-0); MONOCYTES % (MANUAL) 2 % (0-11.0); MYELOCYTES % 3 % (0-0); NEUTROPHILS % (MANUAL) 85 (42-76); PLATELET ESTIMATE DECREASED
[2024-01-06] MEDS ORDERED: VANCOMYCIN 500 MG in IV D5W 100 ML IV PRN (06:00)
[2024-01-06 07:26] LABS: CALCIUM, SERUM 6.9 mg/dL (8.5-10.1); CREATININE 1.5 mg/dL (0.6-1.3); MAGNESIUM 2.3 mg/dL (1.8-2.4); PHOSPHORUS 1.5 mg/dL (2.5-4.9); POTASSIUM 2.9 mmol/L (3.5-5.1)
[2024-01-06 07:32] LABS: LACTIC ACID 1.8 mmol/L (0.4-2.0)
[2024-01-06 07:55] LABS: INR 1.13 (0.91-1.10); PARTIAL THROMBOPLASTIN TIME 34.8 SEC (24.3-34.3); PROTHROMBIN TIME 11.9 SECS (9.2-11.1)
[2024-01-06 08:06] LABS: THYROID STIMULATING HORMONE 3.925 uIU/mL (0.358-3.74); URIC ACID 3.4 mg/dL (2.6-7.2)
[2024-01-06 09:07] LABS: ABG BASE EXCESS -3.8 mmol/L; ABG OXYGEN SATURATION 94.3 % (92.0-98.5); ABG PCO2 46.4 mmHg (35.0-45.0); ABG PH 7.303 (7.350-7.450); ABG PO2 74.6 mmHg (75.0-100.0); ABG TOTAL HEMOGLOBIN 8.7 G/dL (12.0-16.0); AaDO2 410.9 mmHg; COHb 0.3 % (0.5-1.5); MetHb 0.2 % (0.0-1.5); O2Hb 93.8 % (94.0-97.0); SITE, ABG Right Radial; VENT MODE, BG AC 26 600 75% +0
[2024-01-06 09:28] LABS: D-DIMER 3.7 mg/L(FEU (0.17-0.50)
[2024-01-06 10:26] LABS: BASOPHILS # (AUTO) 0.1 K/uL (0.0-0.2); BASOPHILS % (AUTO) 0.4 % (0.0-2.0); EOSINOPHILS % (AUTO) 0.1 % (0.0-6.0); HEMATOCRIT 23 % (33-45); HEMOGLOBIN 7.3 g/dL (11.5-14.8); LYMPHOCYTES # (AUTO) 0.5 K/uL (0.8-4.8); LYMPHOCYTES % (AUTO) 1.5 % (20.0-44.0); MEAN CORPUSCULAR HEMOGLOBIN 29 PG (26.0-33.0); MEAN CORPUSCULAR HGB CONC 32 g/dl (31.0-36.0); MEAN CORPUSCULAR VOLUME 92 fL (82-100); MONOCYTES % (AUTO) 3.1 % (2.0-12.0); NEUTROPHILS # (AUTO) 29.4 K/uL (1.8-8.9); NEUTROPHILS % (AUTO) 94.9 % (43.0-81.0); PLATELET COUNT (AUTO) 97 K/uL (150-450); RED CELL DISTRIBUTION WIDTH 17.9 % (11.5-15.0)
[2024-01-06 10:40] LABS: WHITE BLOOD COUNT (AUTO) 30.9 K/uL (4.3-11.0)
[2024-01-06] MEDS: POTASSIUM PHOSPHATE MM 15 MMOL in IV NS 0.9% 250 ML IV SCH (12:25)
[2024-01-06] MEDS ORDERED: DEXTROSE 5% IV PRN (14:30)
[2024-01-06] MEDS ORDERED: AMINO ACIDS IV PRN (14:30)
[2024-01-06] MEDS ORDERED: TPN ADDITIVES IV PRN (14:30)
[2024-01-06] MEDS ORDERED: [UNRECOGNIZED DRUG - NUTRITION] IV SCH (15:00)
[2024-01-06 15:26] LABS: ANISOCYTOSIS 1+; LYMPHOCYTES % (MANUAL) 2 % (16-48); METAMYELOCYTES % 2 % (0-0); MONOCYTES % (MANUAL) 2 % (0-11.0); MYELOCYTES % 1 % (0-0); NEUTROPHILS % (MANUAL) 93 (42-76); PLATELET ESTIMATE DECREASED
[2024-01-06] MEDS ORDERED: TPN BAG #16 IV SCH (15:30)
[2024-01-06] MEDS: PPN BAG #1 IV SCH (18:39)
[2024-01-06] MEDS: METOCLOPRAMIDE HCL 10 MG/10 ML UDC GT SCH (20:23)
[2024-01-06 20:48] LABS: CALCIUM, SERUM 7.3 mg/dL (8.5-10.1); CREATININE 1.4 mg/dL (0.6-1.3)
[2024-01-06] MEDS ORDERED: VANCOMYCIN 750 MG in IV D5W 250 ML IV SCH (21:00)
[2024-01-06] MEDS ORDERED: MISCELLANEOUS MED 1 EA EA IV SCH (21:00)
[2024-01-06] MEDS: POTASSIUM PHOSPHATE MM 7.5 MMOL in IV NS 0.9% 100 ML IV SCH (21:24)
[2024-01-07] VITALS (95 sets, daily range): BP systolic 71–129; BP diastolic 43–71; TEMP 97.3–98.5; O2SAT 92–99
[2024-01-07] MEDS: POTASSIUM CL. PREMIX PERIPHER. 50 ML IV SCH (01:22)
[2024-01-07 04:50] LABS: BASOPHILS % (AUTO) 0.1 % (0.0-2.0); EOSINOPHILS # (AUTO) 0.1 K/uL (0.0-0.7); EOSINOPHILS % (AUTO) 0.2 % (0.0-6.0); LYMPHOCYTES # (AUTO) 0.9 K/uL (0.8-4.8); LYMPHOCYTES % (AUTO) 2.3 % (20.0-44.0); MEAN CORPUSCULAR HEMOGLOBIN 29 PG (26.0-33.0); MEAN CORPUSCULAR HGB CONC 32 g/dl (31.0-36.0); MEAN CORPUSCULAR VOLUME 91 fL (82-100); MONOCYTES # (AUTO) 2.7 K/uL (0.1-1.30); MONOCYTES % (AUTO) 6.9 % (2.0-12.0); NEUTROPHILS # (AUTO) 35.4 K/uL (1.8-8.9); NEUTROPHILS % (AUTO) 90.5 % (43.0-81.0); PLATELET COUNT (AUTO) 95 K/uL (150-450); RED BLOOD CELL COUNT(AUTO) 2.22 MIL/uL (4.0-5.2)
[2024-01-07 05:16] LABS: CALCIUM, SERUM 7.3 mg/dL (8.5-10.1); CREATININE 1.6 mg/dL (0.6-1.3); MAGNESIUM 2.2 mg/dL (1.8-2.4); PHOSPHORUS 1.5 mg/dL (2.5-4.9); POTASSIUM 3.3 mmol/L (3.5-5.1)
[2024-01-07 05:19] LABS: HEMOGLOBIN 6.5 g/dL (11.5-14.8); WHITE BLOOD COUNT (AUTO) 39.1 K/uL (4.3-11.0)
[2024-01-07 05:20] LABS: HEMATOCRIT 20 % (33-45)
[2024-01-07] MEDS ORDERED: NS 0.9% IV SCH ×2 (08:00→08:11)
[2024-01-07] MEDS ORDERED: CEFTAZIDIME IV SCH ×2 (08:00→08:11)
[2024-01-07] MEDS ORDERED: AVIBACTAM IV SCH ×2 (08:00→08:11)
[2024-01-07 08:35] LABS: INR 1.25 (0.91-1.10); PARTIAL THROMBOPLASTIN TIME 40.2 SEC (24.3-34.3); PROTHROMBIN TIME 13.1 SECS (9.2-11.1)
[2024-01-07] MEDS: NS 0.9% IV SCH (08:42)
[2024-01-07] MEDS: CEFTAZIDIME IV SCH (08:42)
[2024-01-07] MEDS: AVIBACTAM IV SCH (08:42)
[2024-01-07 08:46] LABS: D-DIMER 6.33 mg/L(FEU (0.17-0.50)
[2024-01-07 11:22] LABS: ABG BASE EXCESS -3.7 mmol/L; ABG OXYGEN SATURATION 92.3 % (92.0-98.5); ABG PCO2 49.2 mmHg (35.0-45.0); ABG PH 7.285 (7.350-7.450); ABG PO2 65.7 mmHg (75.0-100.0); ABG TOTAL HEMOGLOBIN 7.8 G/dL (12.0-16.0); COHb 0.4 % (0.5-1.5); MetHb 0.1 % (0.0-1.5); O2Hb 91.8 % (94.0-97.0); PEEP,BG 0 cm H2O; SITE, ABG Left Radial; VT, ABG 575 mL
[2024-01-07 12:09] LABS: BAND % (MANUAL) 3 % (0.0-5.0); LYMPHOCYTES % (MANUAL) 4 % (16-48); METAMYELOCYTES % 3 % (0-0); MONOCYTES % (MANUAL) 6 % (0-11.0); MYELOCYTES % 1 % (0-0); NEUTROPHILS % (MANUAL) 83 (42-76); PLATELET ESTIMATE DECREASED
[2024-01-07 12:12] LABS: ANISOCYTOSIS 1+; TEAR DROP CELLS 1+
[2024-01-07 12:13] LABS: OVALOCYTES 1+
[2024-01-07] MEDS ORDERED: POTASSIUM PHOSPHATE MM 7.5 MMOL in IV NS 0.9% 100 ML IV SCH (13:00)
[2024-01-07] MEDS ORDERED: POTASSIUM PHOSPHATE MM 15 MMOL in IV NS 0.9% 250 ML IV SCH (13:00)
[2024-01-07] MEDS: POTASSIUM PHOSPHATE MM 7.5 MMOL in IV NS 0.9% 100 ML IV SCH (16:22)
[2024-01-07] MEDS ORDERED: NOREPINEPHRINE 32 MG in IV NS 0.9% 218 ML IV PRN (16:30)
[2024-01-07] MEDS: NOREPINEPHRINE 8 MG in IV D5W 242 ML IV PRN (18:00)
[2024-01-07] MEDS: TPN BAG #2 IV SCH (18:45)
[2024-01-07] MEDS: COLISTIMETHATE SODIUM 150 MG CBA VIAL NEB SCH (21:00)
[2024-01-08] VITALS (101 sets, daily range): BP systolic 55–155; BP diastolic 32–75; TEMP 97–97.3; O2SAT 89–99
[2024-01-08 04:56] LABS: BASOPHILS % (AUTO) 0.1 % (0.0-2.0); EOSINOPHILS % (AUTO) 0.1 % (0.0-6.0); HEMATOCRIT 25 % (33-45); HEMOGLOBIN 8.3 g/dL (11.5-14.8); LYMPHOCYTES # (AUTO) 0.6 K/uL (0.8-4.8); LYMPHOCYTES % (AUTO) 1.2 % (20.0-44.0); MEAN CORPUSCULAR HEMOGLOBIN 30 PG (26.0-33.0); MEAN CORPUSCULAR HGB CONC 33 g/dl (31.0-36.0); MEAN CORPUSCULAR VOLUME 90 fL (82-100); MONOCYTES # (AUTO) 2.3 K/uL (0.1-1.30); NEUTROPHILS # (AUTO) 44.3 K/uL (1.8-8.9); NEUTROPHILS % (AUTO) 93.6 % (43.0-81.0); PLATELET COUNT (AUTO) 98 K/uL (150-450); RED BLOOD CELL COUNT(AUTO) 2.78 MIL/uL (4.0-5.2); RED CELL DISTRIBUTION WIDTH 17.8 % (11.5-15.0)
[2024-01-08 05:39] LABS: WHITE BLOOD COUNT (AUTO) 47.3 K/uL (4.3-11.0)
[2024-01-08 05:44] LABS: BILIRUBIN,DIRECT 4.9 mg/dL (0.0-0.2); BILIRUBIN,TOTAL 5.8 mg/dL (0.2-1.0); CALCIUM, SERUM 7.4 mg/dL (8.5-10.1); MAGNESIUM 2.3 mg/dL (1.8-2.4); PHOSPHORUS 2.3 mg/dL (2.5-4.9); POTASSIUM 3.5 mmol/L (3.5-5.1); TOTAL PROTEIN, SERUM 5.7 g/dL (6.4-8.2)
[2024-01-08 06:09] LABS: ALBUMIN 1.2 g/dL (3.4-5.0)
[2024-01-08 06:15] LABS: ANISOCYTOSIS 1+; BAND % (MANUAL) 9 % (0.0-5.0); LYMPHOCYTES % (MANUAL) 2 % (16-48); MONOCYTES % (MANUAL) 4 % (0-11.0); MYELOCYTES % 11 % (0-0); NEUTROPHILS % (MANUAL) 74 (42-76); PLATELET ESTIMATE DECREASED
[2024-01-08] MEDS: TIGECYCLINE 100 MG in IV D5W 100 ML IV SCH (09:08)
[2024-01-08] MEDS ORDERED: NOREPINEPHRINE 32 MG in IV NS 0.9% 218 ML IV PRN (10:30)
[2024-01-08] MEDS ORDERED: POTASSIUM PHOSPHATE MM 7.5 MMOL in IV NS 0.9% 100 ML IV SCH (11:00)
[2024-01-08] MEDS ORDERED: IOHEXOL-300 100 ML VIAL IV ONE (13:31)
[2024-01-08] MEDS ORDERED: CT SWABBABLE VALVE TRANS SET 1 EA INFUS.SET MC ONE (13:32)
[2024-01-08] MEDS ORDERED: IV NS 0.9% 250 ML IV ONE (13:32)
[2024-01-08] MEDS ORDERED: Sodium Phosphate 15 MMOL in IV NS 0.9% 245 ML IV SCH (17:00)
[2024-01-08] MEDS ORDERED: DIATR MEGLU/DIATRIZOATE SODIUM 30 ML BOTTLE (GASTROGRAPHIN) ONE (17:47)
[2024-01-08] MEDS: TPN BAG #3 IV SCH (19:48)
[2024-01-08] MEDS: TIGECYCLINE 50 MG in IV D5W 50 ML IV SCH (21:32)
[2024-01-09] VITALS (102 sets, daily range): BP systolic 52–147; BP diastolic 23–133; TEMP 96.9–99.4; O2SAT 91–100
[2024-01-09] MEDS: MEROPENEM 500MG/NS 50 ML PB IV ONE (05:53)
[2024-01-09 08:11] LABS: EOSINOPHILS # (AUTO) 0.1 K/uL (0.0-0.7); EOSINOPHILS % (AUTO) 0.3 % (0.0-6.0); HEMOGLOBIN 7.8 g/dL (11.5-14.8); PLATELET COUNT (AUTO) 75 K/uL (150-450)
[2024-01-09 08:27] LABS: BASOPHILS % (AUTO) 0.1 % (0.0-2.0); HEMATOCRIT 24 % (33-45); INR 1.13 (0.91-1.10); LYMPHOCYTES # (AUTO) 0.6 K/uL (0.8-4.8); LYMPHOCYTES % (AUTO) 1.4 % (20.0-44.0); MEAN CORPUSCULAR HEMOGLOBIN 29 PG (26.0-33.0); MEAN CORPUSCULAR HGB CONC 33 g/dl (31.0-36.0); MEAN CORPUSCULAR VOLUME 89 fL (82-100); MONOCYTES # (AUTO) 1.6 K/uL (0.1-1.30); MONOCYTES % (AUTO) 3.6 % (2.0-12.0); NEUTROPHILS % (AUTO) 94.6 % (43.0-81.0); PARTIAL THROMBOPLASTIN TIME 29.7 SEC (24.3-34.3); PROTHROMBIN TIME 11.9 SECS (9.2-11.1); RED BLOOD CELL COUNT(AUTO) 2.69 MIL/uL (4.0-5.2); RED CELL DISTRIBUTION WIDTH 17.5 % (11.5-15.0)
[2024-01-09 08:35] LABS: D-DIMER 11.62 mg/L(FEU (0.17-0.50); WHITE BLOOD COUNT (AUTO) 44.4 K/uL (4.3-11.0)
[2024-01-09 08:44] LABS: CALCIUM, SERUM 7.1 mg/dL (8.5-10.1); CREATININE 1.9 mg/dL (0.6-1.3); MAGNESIUM 1.9 mg/dL (1.8-2.4); PHOSPHORUS 1.8 mg/dL (2.5-4.9); POTASSIUM 3.2 mmol/L (3.5-5.1)
[2024-01-09] MEDS ORDERED: LIDOCAINE 1% INJ 50 ML MDV IJ ONE (10:30)
[2024-01-09 10:31] LABS: BILIRUBIN,DIRECT 4.8 mg/dL (0.0-0.2); BILIRUBIN,TOTAL 5.4 mg/dL (0.2-1.0); TOTAL PROTEIN, SERUM 5.4 g/dL (6.4-8.2)
[2024-01-09 11:56] LABS: BAND % (MANUAL) 7 % (0.0-5.0); LYMPHOCYTES % (MANUAL) 1 % (16-48); METAMYELOCYTES % 2 % (0-0); MONOCYTES % (MANUAL) 3 % (0-11.0); MYELOCYTES % 5 % (0-0); NEUTROPHILS % (MANUAL) 82 (42-76)
[2024-01-09 11:57] LABS: ANISOCYTOSIS 1+; OVALOCYTES 1+; PLATELET ESTIMATE DECREASED
[2024-01-09] MEDS ORDERED: DIATR MEGLU/DIATRIZOATE SODIUM 30 ML BOTTLE (GASTROGRAPHIN) ONE (13:48)
[2024-01-09] MEDS ORDERED: POTASSIUM CL. PREMIX PERIPHER. 50 ML IV SCH (14:00)
[2024-01-09] MEDS ORDERED: Sodium Phosphate 15 MMOL in IV NS 0.9% 245 ML IV ONE ×2 (15:00→16:00)
[2024-01-09] MEDS: TPN BAG #4 IV SCH (18:13)
[2024-01-09] MEDS: LIDOCAINE 1% INJ 50 ML MDV IJ ONE (18:13)
[2024-01-10] VITALS (85 sets, daily range): BP systolic 79–144; BP diastolic 42–112; TEMP 97.4–99.3; O2SAT 94–99
[2024-01-10] MEDS: risperiDONE 1 MG TABLET GT SCH (11:54)
[2024-01-10] MEDS ORDERED: TPN BAG #4 IV SCH (12:00)
[2024-01-10] MEDS: MIDODRINE HCL (5MG) 5 MG TABLET GT SCH (12:33)
[2024-01-10] MEDS: AMIODARONE HCL 200 MG TABLET GT SCH (12:33)
[2024-01-10] MEDS: TPN BAG #5 IV SCH (18:53)
[2024-01-10] MEDS: PHENYTOIN SUSP UDC 100 MG/4 ML UDC GT SCH (20:57)
[2024-01-10] MEDS: VALPROIC ACID 250 MG/5 ML UDC GT SCH (20:57)
[2024-01-10] MEDS: CHLORHEXIDINE GLUCONATE 15 ML UDC MM SCH (20:58)
[2024-01-10] MEDS: DOCUSATE SODIUM LIQ 100 MG/10 ML UDC PEG SCH (21:01)
[2024-01-11] VITALS (99 sets, daily range): BP systolic 71–134; BP diastolic 39–99; TEMP 97.7–98.4; O2SAT 86–100
[2024-01-11 05:11] LABS: INR 1.13 (0.91-1.10); PARTIAL THROMBOPLASTIN TIME 39.3 SEC (24.3-34.3); PROTHROMBIN TIME 11.9 SECS (9.2-11.1)
[2024-01-11 05:20] LABS: BILIRUBIN,TOTAL 4.3 mg/dL (0.2-1.0); CALCIUM, SERUM 7.4 mg/dL (8.5-10.1); CREATININE 2.2 mg/dL (0.6-1.3); MAGNESIUM 2.1 mg/dL (1.8-2.4); POTASSIUM 3.3 mmol/L (3.5-5.1); TOTAL PROTEIN, SERUM 5.5 g/dL (6.4-8.2)
[2024-01-11 05:26] LABS: BASOPHILS # (AUTO) 0.1 K/uL (0.0-0.2); BASOPHILS % (AUTO) 0.1 % (0.0-2.0); EOSINOPHILS # (AUTO) 0.4 K/uL (0.0-0.7); EOSINOPHILS % (AUTO) 0.7 % (0.0-6.0); HEMATOCRIT 26 % (33-45); HEMOGLOBIN 8.2 g/dL (11.5-14.8); LYMPHOCYTES # (AUTO) 0.9 K/uL (0.8-4.8); LYMPHOCYTES % (AUTO) 1.6 % (20.0-44.0); MEAN CORPUSCULAR HEMOGLOBIN 29 PG (26.0-33.0); MEAN CORPUSCULAR HGB CONC 32 g/dl (31.0-36.0); MEAN CORPUSCULAR VOLUME 93 fL (82-100); MONOCYTES # (AUTO) 1.8 K/uL (0.1-1.30); MONOCYTES % (AUTO) 3.3 % (2.0-12.0); NEUTROPHILS # (AUTO) 51.6 K/uL (1.8-8.9); NEUTROPHILS % (AUTO) 94.3 % (43.0-81.0); PLATELET COUNT (AUTO) 63 K/uL (150-450); RED BLOOD CELL COUNT(AUTO) 2.82 MIL/uL (4.0-5.2); RED CELL DISTRIBUTION WIDTH 18.1 % (11.5-15.0)
[2024-01-11 05:32] LABS: ALBUMIN 0.9 g/dL (3.4-5.0); D-DIMER 18.05 mg/L(FEU (0.17-0.50)
[2024-01-11 05:43] LABS: WHITE BLOOD COUNT (AUTO) 54.8 K/uL (4.3-11.0)
[2024-01-11 08:11] LABS: ANISOCYTOSIS 1+; BAND % (MANUAL) 8 % (0.0-5.0); EOSINOPHILS % (MANUAL) 1 % (0-4); LYMPHOCYTES % (MANUAL) 2 % (16-48); MONOCYTES % (MANUAL) 2 % (0-11.0); MYELOCYTES % 2 % (0-0); NEUTROPHILS % (MANUAL) 85 (42-76); PLATELET ESTIMATE DECREASED
[2024-01-11 08:12] LABS: OVALOCYTES 1+
[2024-01-11] MEDS ORDERED: POTASSIUM CL. PREMIX PERIPHER. 50 ML IV SCH ×2 (09:00→14:00)
[2024-01-11 09:31] LABS: PHOSPHORUS 2.5 mg/dL (2.5-4.9)
[2024-01-11] MEDS: HYDROCORTISONE SOD SUCCINATE 100 MG/2 ML VIAL IV SCH (09:58)
[2024-01-11] MEDS ORDERED: PPN BAG #6 IV SCH (18:00)
[2024-01-11] MEDS: PPN BAG #6 IV SCH (18:23)
[2024-01-12] VITALS (90 sets, daily range): BP systolic 93–142; BP diastolic 42–84; TEMP 97–98.4; O2SAT 89–100
[2024-01-12 07:35] LABS: EOSINOPHILS % (AUTO) 0.1 % (0.0-6.0); HEMATOCRIT 26 % (33-45); HEMOGLOBIN 8.3 g/dL (11.5-14.8); LYMPHOCYTES # (AUTO) 0.5 K/uL (0.8-4.8); MEAN CORPUSCULAR HEMOGLOBIN 29 PG (26.0-33.0); MEAN CORPUSCULAR HGB CONC 32 g/dl (31.0-36.0); MEAN CORPUSCULAR VOLUME 91 fL (82-100); MONOCYTES # (AUTO) 1.2 K/uL (0.1-1.30); MONOCYTES % (AUTO) 2.5 % (2.0-12.0); NEUTROPHILS # (AUTO) 47.4 K/uL (1.8-8.9); NEUTROPHILS % (AUTO) 96.4 % (43.0-81.0); PLATELET COUNT (AUTO) 73 K/uL (150-450); RED BLOOD CELL COUNT(AUTO) 2.84 MIL/uL (4.0-5.2); RED CELL DISTRIBUTION WIDTH 17.4 % (11.5-15.0)
[2024-01-12 07:36] LABS: PARTIAL THROMBOPLASTIN TIME 30.5 SEC (24.3-34.3); PROTHROMBIN TIME 10.6 SECS (9.2-11.1)
[2024-01-12 07:45] LABS: BILIRUBIN,TOTAL 2.2 mg/dL (0.2-1.0); CALCIUM, SERUM 7.4 mg/dL (8.5-10.1); CREATININE 2.6 mg/dL (0.6-1.3); MAGNESIUM 2.2 mg/dL (1.8-2.4); PHOSPHORUS 3.9 mg/dL (2.5-4.9); POTASSIUM 3.3 mmol/L (3.5-5.1); TOTAL PROTEIN, SERUM 5.6 g/dL (6.4-8.2)
[2024-01-12 07:50] LABS: ALBUMIN 0.9 g/dL (3.4-5.0)
[2024-01-12 07:51] LABS: WHITE BLOOD COUNT (AUTO) 49.2 K/uL (4.3-11.0)
[2024-01-12 07:53] LABS: D-DIMER 17.85 mg/L(FEU (0.17-0.50)
[2024-01-12] MEDS: PPN IV SCH (10:09)
[2024-01-12 13:20] LABS: ABG BASE EXCESS -6.6 mmol/L; ABG OXYGEN SATURATION 73.7 % (92.0-98.5); ABG PCO2 57.5 mmHg (35.0-45.0); ABG PH 7.192 (7.350-7.450); ABG PO2 41.8 mmHg (75.0-100.0); AaDO2 177.3 mmHg; COHb 0.8 % (0.5-1.5); MetHb 0.5 % (0.0-1.5); O2Hb 72.7 % (94.0-97.0); SITE, ABG Right Radial
[2024-01-12 13:35] LABS: BAND % (MANUAL) 4 % (0.0-5.0); LYMPHOCYTES % (MANUAL) 2 % (16-48); MONOCYTES % (MANUAL) 4 % (0-11.0); NEUTROPHILS % (MANUAL) 90 (42-76); PLATELET ESTIMATE DECRE
[2024-01-12 13:36] LABS: ANISOCYTOSIS 1+; TARGET CELLS 1+
[2024-01-12] MEDS: PPN BAG #8 IV SCH (17:46)
[2024-01-13] VITALS (87 sets, daily range): BP systolic 66–129; BP diastolic 31–90; TEMP 97–99.1; O2SAT 96–100
[2024-01-13] MEDS: MEROPENEM 1 G in IV NS 0.9% 100 ML IV SCH (05:29)
[2024-01-13 07:22] LABS: INR 1.02 (0.91-1.10); PARTIAL THROMBOPLASTIN TIME 37.4 SEC (24.3-34.3); PROTHROMBIN TIME 10.8 SECS (9.2-11.1)
[2024-01-13 07:43] LABS: D-DIMER 14.19 mg/L(FEU (0.17-0.50)
[2024-01-13 07:45] LABS: BASOPHILS % (AUTO) 0.1 % (0.0-2.0); HEMATOCRIT 24 % (33-45); HEMOGLOBIN 7.7 g/dL (11.5-14.8); LYMPHOCYTES # (AUTO) 0.5 K/uL (0.8-4.8); LYMPHOCYTES % (AUTO) 1.8 % (20.0-44.0); MEAN CORPUSCULAR HEMOGLOBIN 29 PG (26.0-33.0); MEAN CORPUSCULAR HGB CONC 32 g/dl (31.0-36.0); MEAN CORPUSCULAR VOLUME 90 fL (82-100); MONOCYTES # (AUTO) 1.1 K/uL (0.1-1.30); MONOCYTES % (AUTO) 3.6 % (2.0-12.0); NEUTROPHILS # (AUTO) 29.1 K/uL (1.8-8.9); NEUTROPHILS % (AUTO) 94.5 % (43.0-81.0); PLATELET COUNT (AUTO) 60 K/uL (150-450); RED BLOOD CELL COUNT(AUTO) 2.69 MIL/uL (4.0-5.2); RED CELL DISTRIBUTION WIDTH 16.9 % (11.5-15.0)
[2024-01-13] MEDS: PPN BAG #9 IV SCH (07:46)
[2024-01-13 08:16] LABS: WHITE BLOOD COUNT (AUTO) 30.8 K/uL (4.3-11.0)
[2024-01-13 08:22] LABS: BILIRUBIN,TOTAL 1.5 mg/dL (0.2-1.0); CALCIUM, SERUM 7.4 mg/dL (8.5-10.1); CREATININE 2.9 mg/dL (0.6-1.3); MAGNESIUM 2.3 mg/dL (1.8-2.4); PHOSPHORUS 5.1 mg/dL (2.5-4.9); POTASSIUM 3.2 mmol/L (3.5-5.1); TOTAL PROTEIN, SERUM 5.5 g/dL (6.4-8.2)
[2024-01-13 08:28] LABS: ALBUMIN 0.9 g/dL (3.4-5.0)
[2024-01-13] MEDS: HYDROCORTISONE SOD SUCCINATE 100 MG/2 ML VIAL IV SCH (11:35)
[2024-01-13] MEDS ORDERED: MIDAZOLAM HCL 2 MG/2ML VIAL IV PRN (14:00)
[2024-01-13] MEDS ORDERED: NALOXONE PREFILLED SYRINGE 2 MG/2 ML SYRINGE IV PRN (14:00)
[2024-01-13] MEDS ORDERED: FLUMAZENIL 0.5 MG VIAL IV PRN (14:00)
[2024-01-13] MEDS ORDERED: FENTANYL PF 250MCG/5ML AMPUL IV PRN (14:00)
[2024-01-13 15:40] LABS: LYMPHOCYTES % (MANUAL) 1 % (16-48); MONOCYTES % (MANUAL) 1 % (0-11.0); NEUTROPHILS % (MANUAL) 98 (42-76); PLATELET ESTIMATE DECREASED
[2024-01-13 15:41] LABS: ANISOCYTOSIS 1+
[2024-01-13] MEDS ORDERED: TERBUTALINE SULFATE 1 MG/ML VIAL SQ PRN (21:00)
[2024-01-13] MEDS: TERBUTALINE SULFATE 1 MG/ML VIAL SQ ONE (21:22)
[2024-01-13] MEDS: PPN BAG #10 IV SCH (23:24)
[2024-01-13] MEDS: IV NS 0.9% 1,000 ML IV PRN (23:52)
[2024-01-14] VITALS (87 sets, daily range): BP systolic 79–129; BP diastolic 39–88; TEMP 97.2–97.8; O2SAT 94–100
[2024-01-14 04:08] LABS: BILIRUBIN,TOTAL 1.3 mg/dL (0.2-1.0); CALCIUM, SERUM 7.1 mg/dL (8.5-10.1); CREATININE 3.3 mg/dL (0.6-1.3); MAGNESIUM 2.2 mg/dL (1.8-2.4); PHOSPHORUS 5.9 mg/dL (2.5-4.9); POTASSIUM 3.2 mmol/L (3.5-5.1); TOTAL PROTEIN, SERUM 5.3 g/dL (6.4-8.2)
[2024-01-14 04:37] LABS: ALBUMIN 0.9 g/dL (3.4-5.0)
[2024-01-14] MEDS ORDERED: LEVOTHYROXINE INJ 100 MCG VIAL IV SCH (07:30)
[2024-01-14] MEDS: HYDROCORTISONE SOD SUCCINATE 100 MG/2 ML VIAL IV SCH (10:00)
[2024-01-14 10:08] LABS: ABG BASE EXCESS -9.3 mmol/L; ABG OXYGEN SATURATION 94.2 % (92.0-98.5); ABG PCO2 41.9 mmHg (35.0-45.0); ABG PH 7.239 (7.350-7.450); ABG PO2 78.9 mmHg (75.0-100.0); ABG TOTAL HEMOGLOBIN 8.8 G/dL (12.0-16.0); AaDO2 121.9 mmHg; COHb 0.3 % (0.5-1.5); MetHb 0.1 % (0.0-1.5); O2Hb 93.8 % (94.0-97.0); PEEP,BG 0 cm H2O; SITE, ABG Left Radial; VT, ABG 575 mL
[2024-01-14] MEDS: LEVOTHYROXINE INJ 100 MCG VIAL IV SCH (12:05)
[2024-01-14] MEDS: PPN BAG #11 IV SCH (13:33)
[2024-01-14 14:30] LABS: BASOPHILS % (AUTO) 0.2 % (0.0-2.0); HEMATOCRIT 23 % (33-45); HEMOGLOBIN 7.8 g/dL (11.5-14.8); LYMPHOCYTES # (AUTO) 0.3 K/uL (0.8-4.8); LYMPHOCYTES % (AUTO) 1.5 % (20.0-44.0); MEAN CORPUSCULAR HEMOGLOBIN 30 PG (26.0-33.0); MEAN CORPUSCULAR HGB CONC 33 g/dl (31.0-36.0); MEAN CORPUSCULAR VOLUME 90 fL (82-100); MONOCYTES # (AUTO) 0.7 K/uL (0.1-1.30); MONOCYTES % (AUTO) 3.2 % (2.0-12.0); NEUTROPHILS # (AUTO) 21.1 K/uL (1.8-8.9); NEUTROPHILS % (AUTO) 95.1 % (43.0-81.0); PLATELET COUNT (AUTO) 54 K/uL (150-450); RED CELL DISTRIBUTION WIDTH 16.9 % (11.5-15.0); WHITE BLOOD COUNT (AUTO) 22.2 K/uL (4.3-11.0)
[2024-01-14 14:55] LABS: LYMPHOCYTES % (MANUAL) 2 % (16-48); MONOCYTES % (MANUAL) 1 % (0-11.0); NEUTROPHILS % (MANUAL) 97 (42-76); PLATELET ESTIMATE DECREASED
[2024-01-14 14:56] LABS: ANISOCYTOSIS 2+
[2024-01-14] MEDS: TIGECYCLINE 50 MG in IV D5W 50 ML IV SCH (16:34)
[2024-01-14] MEDS: MEROPENEM 1 G in IV NS 0.9% 100 ML IV SCH (17:08)
[2024-01-14] MEDS: MICAFUNGIN SODIUM 100 MG in IV NS 0.9% 100 ML IV SCH (17:51)
[2024-01-14] MEDS ORDERED: MEROPENEM 1 G in IV NS 0.9% 100 ML IV SCH (18:00)
[2024-01-15] VITALS (83 sets, daily range): BP systolic 64–133; BP diastolic 41–82; TEMP 97–97.7; O2SAT 96–100
[2024-01-15] MEDS: PPN BAG #12 IV SCH (00:10)
[2024-01-15 04:43] LABS: BASOPHILS # (AUTO) 0.1 K/uL (0.0-0.2); BASOPHILS % (AUTO) 0.2 % (0.0-2.0); EOSINOPHILS % (AUTO) 0.1 % (0.0-6.0); HEMATOCRIT 24 % (33-45); HEMOGLOBIN 7.9 g/dL (11.5-14.8); LYMPHOCYTES # (AUTO) 0.6 K/uL (0.8-4.8); LYMPHOCYTES % (AUTO) 2.4 % (20.0-44.0); MEAN CORPUSCULAR HEMOGLOBIN 29 PG (26.0-33.0); MEAN CORPUSCULAR HGB CONC 33 g/dl (31.0-36.0); MEAN CORPUSCULAR VOLUME 89 fL (82-100); MONOCYTES # (AUTO) 0.8 K/uL (0.1-1.30); MONOCYTES % (AUTO) 3.1 % (2.0-12.0); NEUTROPHILS # (AUTO) 23.3 K/uL (1.8-8.9); NEUTROPHILS % (AUTO) 94.2 % (43.0-81.0); PLATELET COUNT (AUTO) 170 K/uL (150-450); RED BLOOD CELL COUNT(AUTO) 2.68 MIL/uL (4.0-5.2); RED CELL DISTRIBUTION WIDTH 18.1 % (11.5-15.0); WHITE BLOOD COUNT (AUTO) 24.7 K/uL (4.3-11.0)
[2024-01-15 05:01] LABS: BILIRUBIN,TOTAL 1.1 mg/dL (0.2-1.0); CALCIUM, SERUM 6.9 mg/dL (8.5-10.1); CREATININE 3.3 mg/dL (0.6-1.3); MAGNESIUM 2.3 mg/dL (1.8-2.4); PHOSPHORUS 6.9 mg/dL (2.5-4.9); POTASSIUM 4.6 mmol/L (3.5-5.1); TOTAL PROTEIN, SERUM 5.4 g/dL (6.4-8.2)
[2024-01-15 05:11] LABS: ALBUMIN 0.8 g/dL (3.4-5.0)
[2024-01-15 08:55] LABS: BAND % (MANUAL) 1 % (0.0-5.0); LYMPHOCYTES % (MANUAL) 2 % (16-48); MONOCYTES % (MANUAL) 3 % (0-11.0); NEUTROPHILS % (MANUAL) 94 (42-76); PLATELET ESTIMATE ADEQUATE
[2024-01-15 08:56] LABS: ANISOCYTOSIS 1+
[2024-01-15] MEDS: TPN BAG #13 IV SCH (12:45)
[2024-01-15] MEDS: IV D5/ 0.9% NACL 1,000 ML IV PRN (15:41)
[2024-01-15] MEDS: TPN BAG #14 IV SCH (20:15)
[2024-01-16] MEDS ORDERED: TPN BAG #15 IV SCH (12:45)
== END 2024-01-15 21:30 | disposition short-term general hospital (02) | DRG 207 ==
LOC: ER 08:59 → TELE1 13:58 → UNDODISIN 11-09 16:20 → TELE1 11-09 16:55 → ICU 12-03 09:09 → TELE-TD 12-06 22:52 → TELE1 12-08 12:28 → ICU 12-14 01:45 → TELE-TD 12-25 17:16 → MEDSG1 12-29 12:02 → TELE1 12-29 12:07 → ICU 01-05 14:31
PROVIDERS: ADMIT Nurse Practitioner Acute Care; ATTEND Internal Medicine
PROC: 5A1945Z Respiratory Ventilation, 24-96 Consecutive Hours (ICD-10-PCS; principal; 2023-10-28)
PROC: 05HC33Z Insertion of Infusion Device into Left Basilic Vein, Percutaneous Approach (ICD-10-PCS; 2023-11-05)
PROC: 0JPTXXZ Removal of Tunneled Vascular Access Device from Trunk Subcutaneous Tissue and Fascia, External Approach (ICD-10-PCS; 2023-11-10)
PROC: 30233N1 Transfusion of Nonautologous Red Blood Cells into Peripheral Vein, Percutaneous Approach (ICD-10-PCS; 2023-11-18)
PROC: 05HB33Z Insertion of Infusion Device into Right Basilic Vein, Percutaneous Approach (ICD-10-PCS; 2023-11-20)
PROC: 0DB98ZX Excision of Duodenum, Via Natural or Artificial Opening Endoscopic, Diagnostic (ICD-10-PCS; 2023-11-26)
PROC: 0DBK8ZX Excision of Ascending Colon, Via Natural or Artificial Opening Endoscopic, Diagnostic (ICD-10-PCS; 2023-11-26)
PROC: 0DBN8ZX Excision of Sigmoid Colon, Via Natural or Artificial Opening Endoscopic, Diagnostic (ICD-10-PCS; 2023-11-26)
PROC: 0DBH8ZX Excision of Cecum, Via Natural or Artificial Opening Endoscopic, Diagnostic (ICD-10-PCS; 2023-11-26)
PROC: 5A1955Z Respiratory Ventilation, Greater than 96 Consecutive Hours (ICD-10-PCS; 2023-12-03)
PROC: 5A1D70Z Performance of Urinary Filtration, Intermittent, Less than 6 Hours Per Day (ICD-10-PCS; 2023-12-06)
PROC: 05HC33Z Insertion of Infusion Device into Left Basilic Vein, Percutaneous Approach (ICD-10-PCS; 2023-12-12)
PROC: 0JH63XZ Insertion of Tunneled Vascular Access Device into Chest Subcutaneous Tissue and Fascia, Percutaneous Approach (ICD-10-PCS; 2023-12-16)
PROC: 05HM33Z Insertion of Infusion Device into Right Internal Jugular Vein, Percutaneous Approach (ICD-10-PCS; 2023-12-16)
PROC: B513YZA Fluoroscopy of Right Jugular Veins using Other Contrast, Guidance (ICD-10-PCS; 2023-12-16)
PROC: 05HC33Z Insertion of Infusion Device into Left Basilic Vein, Percutaneous Approach (ICD-10-PCS; 2023-12-18)
PROC: 05HF33Z Insertion of Infusion Device into Left Cephalic Vein, Percutaneous Approach (ICD-10-PCS; 2023-12-18)
PROC: 02HV33Z Insertion of Infusion Device into Superior Vena Cava, Percutaneous Approach (ICD-10-PCS; 2023-12-26)
PROC: B548ZZA Ultrasonography of Superior Vena Cava, Guidance (ICD-10-PCS; 2023-12-26)
PROC: 05HF33Z Insertion of Infusion Device into Left Cephalic Vein, Percutaneous Approach (ICD-10-PCS; 2024-01-06)
PROC: 05HD33Z Insertion of Infusion Device into Right Cephalic Vein, Percutaneous Approach (ICD-10-PCS; 2024-01-06)
PROC: 05HB33Z Insertion of Infusion Device into Right Basilic Vein, Percutaneous Approach (ICD-10-PCS; 2024-01-08)
PROC: B54CZZA Ultrasonography of Left Lower Extremity Veins, Guidance (ICD-10-PCS; 2024-01-15)
PROC: 02HV33Z Insertion of Infusion Device into Superior Vena Cava, Percutaneous Approach (ICD-10-PCS; 2024-01-15)
PROC: B548ZZA Ultrasonography of Superior Vena Cava, Guidance (ICD-10-PCS; 2024-01-15)
DX: J95.01 Hemorrhage from tracheostomy stoma (principal); J96.21 Acute and chronic respiratory failure with hypoxia; J96.22 Acute and chronic respiratory failure with hypercapnia; J69.0 Pneumonitis due to inhalation of food and vomit; A41.9 Sepsis, unspecified organism; N18.6 End stage renal disease; R65.21 Severe sepsis with septic shock; E43 Unspecified severe protein-calorie malnutrition; A41.89 Other specified sepsis; A41.59 Other Gram-negative sepsis; K29.71 Gastritis, unspecified, with bleeding; N17.9 Acute kidney failure, unspecified; E87.1 Hypo-osmolality and hyponatremia; D68.59 Other primary thrombophilia; E66.2 Morbid (severe) obesity with alveolar hypoventilation; Z99.11 Dependence on respirator [ventilator] status; J44.0 Chronic obstructive pulmonary disease with (acute) lower respiratory infection; I13.11 Hypertensive heart and chronic kidney disease without heart failure, with stage 5 chronic kidney disease, or end stage renal disease; E87.4 Mixed disorder of acid-base balance; Z68.43 Body mass index [BMI] 50.0-59.9, adult; D61.818 Other pancytopenia; K80.00 Calculus of gallbladder with acute cholecystitis without obstruction; K57.32 Diverticulitis of large intestine without perforation or abscess without bleeding; K83.09 Other cholangitis; N39.0 Urinary tract infection, site not specified; R45.851 Suicidal ideations; K56.7 Ileus, unspecified; J95.851 Ventilator associated pneumonia; Z16.24 Resistance to multiple antibiotics; J90 Pleural effusion, not elsewhere classified; Z16.12 Extended spectrum beta lactamase (ESBL) resistance; I82.621 Acute embolism and thrombosis of deep veins of right upper extremity; I47.10 Supraventricular tachycardia, unspecified; K56.609 Unspecified intestinal obstruction, unspecified as to partial versus complete obstruction; R13.10 Dysphagia, unspecified; Y84.8 Other medical procedures as the cause of abnormal reaction of the patient, or of later complication, without mention of misadventure at the time of the procedure; Y92.129 Unspecified place in nursing home as the place of occurrence of the external cause; J95.03 Malfunction of tracheostomy stoma; G40.909 Epilepsy, unspecified, not intractable, without status epilepticus; E11.22 Type 2 diabetes mellitus with diabetic chronic kidney disease; E78.5 Hyperlipidemia, unspecified; F32.9 Major depressive disorder, single episode, unspecified; Z88.0 Allergy status to penicillin; Z87.891 Personal history of nicotine dependence; Z79.899 Other long term (current) drug therapy; Z99.2 Dependence on renal dialysis; Z79.01 Long term (current) use of anticoagulants; Z79.4 Long term (current) use of insulin; Z79.02 Long term (current) use of antithrombotics/antiplatelets; Z79.51 Long term (current) use of inhaled steroids; I25.10 Atherosclerotic heart disease of native coronary artery without angina pectoris; I48.0 Paroxysmal atrial fibrillation; Z78.1 Physical restraint status; D63.8 Anemia in other chronic diseases classified elsewhere; E83.52 Hypercalcemia; T45.2X5A Adverse effect of vitamins, initial encounter; Y92.9 Unspecified place or not applicable; F29 Unspecified psychosis not due to a substance or known physiological condition; D72.10 Eosinophilia, unspecified; E03.9 Hypothyroidism, unspecified; D12.4 Benign neoplasm of descending colon; D12.5 Benign neoplasm of sigmoid colon; D69.6 Thrombocytopenia, unspecified; K64.8 Other hemorrhoids; K82.8 Other specified diseases of gallbladder; K72.90 Hepatic failure, unspecified without coma; N28.89 Other specified disorders of kidney and ureter; B95.2 Enterococcus as the cause of diseases classified elsewhere; R45.850 Homicidal ideations; K52.9 Noninfective gastroenteritis and colitis, unspecified; K44.9 Diaphragmatic hernia without obstruction or gangrene; B96.83 Acinetobacter baumannii as the cause of diseases classified elsewhere; Y84.9 Medical procedure, unspecified as the cause of abnormal reaction of the patient, or of later complication, without mention of misadventure at the time of the procedure; Z53.20 Procedure and treatment not carried out because of patient's decision for unspecified reasons; Z74.09 Other reduced mobility; F41.9 Anxiety disorder, unspecified; E88.09 Other disorders of plasma-protein metabolism, not elsewhere classified; D12.2 Benign neoplasm of ascending colon; E86.0 Dehydration; E83.51 Hypocalcemia; E87.6 Hypokalemia; E11.43 Type 2 diabetes mellitus with diabetic autonomic (poly)neuropathy; K31.84 Gastroparesis; F39 Unspecified mood [affective] disorder; F25.0 Schizoaffective disorder, bipolar type
CPT/HCPCS: 31720; 36410; 36415; 36569; 36600; 71045-TC; 71260-TC; 74018; 74250-TC; 76705-TC; 76770-TC; 78226; 80048-TC; 80053-TC; 80061-TC; 80076-TC; 80164-TC; 80185-TC; 80202-TC; 81001; 82040-TC; 82232; 82272-TC; 82306; 82533; 82550-TC; 82570-TC; 82607-TC; 82728-TC; 82803-TC; 82962-TC; 83540-TC; 83605-TC; 83735-TC; 83970; 84100-TC; 84155; 84165; 84300-TC; 84439-TC; 84443-TC; 84478-TC; 84481; 84550-TC; 85025-TC; 85027-TC; 85396; 85652-TC; 85730-TC; 86140-TC; 86225; 86235; 86431-TC; 86706; 86803; 86850-TC; 87040-TC; 87070-TC; 87081-TC; 87086-TC; 87186-TC; 87340; 87806; 88305-TC; 90935-TC; 93970-TC; 94002-TC; 94003-TC; 94640-TC; 94760-TC; 94762-TC; 94799-TC; 99082-TC; A4216; A4217; A4223; A4623; A4624; A4629; A6253; A6403; A7526; A9537; A9563; C1750; C9113; G0378; J0282; J0692; J0770; J1200; J1644; J1650; J1720; J1815; J1940; J2060; J2185; J2248; J2270; J2405; J2430; J2704; J2765; J2916; J2997; J3010; J3105; J3243; J3370; J3371; J3475; J3480; J3490; J7030; J7040; J7042; J7050; J7060; J7070; J7120; J8597; L8501; P9016; P9047; Q0163; Q9963; Q9967